=== PATIENT | male | born 1935 | race Caucasian/White ===

== ENCOUNTER → 2018-01-06 | Outpatient (CLI) | payer MEDICARE, BC ==
[2018-01-06 21:12] LABS: PSA Annual Screen 1.19 ng/mL (0.00-4.00)
[2018-01-07 04:04] LABS: Hemoglobin A1C 6.1 % (4.0-6.0)
== END | disposition home or self-care (01) ==
LOC: MMGSC 15:44
PROVIDERS: ATTEND Family Medicine
DX: E78.5 Hyperlipidemia, unspecified (principal); I25.10 Atherosclerotic heart disease of native coronary artery without angina pectoris; E11.9 Type 2 diabetes mellitus without complications; Z12.5 Encounter for screening for malignant neoplasm of prostate
CPT/HCPCS: 80061; 82043; 82570; 83036; 36415; G0103

== ENCOUNTER 2020-06-24 17:21 | Inpatient (IN) | payer MEDICARE, BC ==
[2020-06-24] MEDS ORDERED: SODIUM CHLORIDE 0.9% 1,000 ML IV STA (17:52)
--- NOTE | 2020-06-24 17:57 | ED ---
SOB HPI - General Chief Complaint: Shortness of Breath Stated Complaint: SOB Time Seen by Provider: 06/24/20 17:43 Source: patient, family Mode of arrival: ambulatory Limitations: no limitations - History of Present Illness Initial Comments: This is a 84-year-old male who presents with complaints of shortness of breath and 2 days of abdominal pain. He's had diarrhea along with this. He states his blood sugar fill it was low did eat a [employer]. Workup and this did seem to be the beginning of this difficulty breathing he has orthopnea no fevers chills or sweats. He does have a history of cardiac disease with stents and bypass surgery. He does have a pacer defibrillator. He has his gallbladder and appendix out in the past. He does complain of mid abdominal pain. He also has some nausea and vomiting. MD Complaint: shortness of breath - Related Data Home Medications Medication Instructions Recorded Confirmed Aspirin [Adult Low Dose Aspirin EC] 81 mg PO DAILY@1200,2000 06/24/20 06/24/20 Carvedilol [Coreg] 12.5 mg PO BID 06/24/20 06/24/20 Finasteride [Proscar] 5 mg PO QAM 06/24/20 06/24/20 Lovastatin [Mevacor] 20 mg PO DAILY@1200 06/24/20 06/24/20 Meloxicam [Mobic] 15 mg PO HS 06/24/20 06/24/20 [place]-3 Fatty Acids/Fish Oil [Fish 1 cap PO Q48H 06/24/20 06/24/20 Oil 1,000 mg Softgel] Terazosin HCl [Hytrin] 10 mg PO HS 06/24/20 06/24/20 Ubidecarenone [Co Q-10] 200 mg PO QAM 06/24/20 06/24/20 glyBURIDE [Diabeta] 2.5 mg PO Q48H 06/24/20 06/24/20 hydroCHLOROthiazide [Hydrodiuril] 25 mg PO QAM 06/24/20 06/24/20 Allergies Allergy/AdvReac Type Severity Reaction Status Date / Time Penicillins Allergy Rash/Hives Verified 06/24/20 19:59 Review of Systems ROS Statement: Those systems with pertinent positive or pertinent negative responses have been documented in the HPI. ROS Other: All systems not noted in ROS Statement are negative. Past Medical History Past Medical History: Heart Failure, Diabetes Mellitus, Hyperlipidemia, Hypertension History of Any Multi-Drug Resistant Organisms: None Reported Past Surgical History: Appendectomy, Cholecystectomy Past Psychological History: No Psychological Hx Reported Smoking Status: Former smoker Past Alcohol Use History: None Reported Past Drug Use History: None Reported General Exam - General Exam Comments Initial Comments: This is a well-developed well-nourished awake alert oriented times 3 male Limitations: no limitations General appearance: alert, anxious, in distress Head exam: Present: atraumatic, normocephalic, normal inspection Eye exam: Present: normal appearance, PERRL, EOMI. Absent: scleral icterus, conjunctival injection, periorbital swelling ENT exam: Present: normal exam, mucous membranes moist Neck exam: Present: normal inspection, full ROM, other (No stridor JVD or b ruits). Absent: tenderness, meningismus, lymphadenopathy Respiratory exam: Present: rales (Faint crackles at the bases), decreased breath sounds. Absent: respiratory distress, wheezes, rhonchi, stridor Cardiovascular Exam: Present: regular rate, normal rhythm, normal heart sounds. Absent: systolic murmur, diastolic murmur, rubs, gallop, clicks GI/Abdominal exam: Present: soft, distended, tenderness, normal bowel sounds. Absent: guarding, rebound, rigid Rectal exam: Present: deferred Extremities exam: Present: normal inspection, full ROM, normal capillary refill, pedal edema (Trace edema). Absent: tenderness, joint swelling, calf tenderness Back exam: Present: normal inspection Neurological exam: Present: alert, oriented X3, CN II-XII intact Psychiatric exam: Present: normal affect, normal mood Skin exam: Present: warm, dry, intact, normal color. Absent: rash Course Vital Signs 06/24/20 06/24/20 17:36 19:56 Temperature 98.5 F Pulse Rate 61 72 Respiratory 18 16 Rate Blood Pressure 94/60 121/99 O2 Sat by Pulse 97 97 Oximetry - Reevaluation(s) Reevaluation #1: 06/24/20 20:50 Feeling somewhat improved Medical Decision Making - Medical Decision Making I did discuss [employer] the patient and family members patient does have evidence of acute kidney injury as well as CHF. The hypoglycemia may be likely related to the medic medication. I did discuss the case with . Patient will be admitted - Lab Data Result diagrams: 06/24/20 18:25 06/24/20 18:25 Lab Results 06/24/20 06/24/20 06/24/20 Range/Units 18:25 18:25 18:25 WBC 19.7 H (3.8-10.6) k/uL RBC 4.19 L (4.30-5.90) m/uL Hgb 11.3 L (13.0-17.5) gm/dL Hct 34.7 L (39.0-53.0) % MCV 82.7 (80.0-100.0) fL MCH 26.9 (25.0-35.0) pg MCHC 32.5 (31.0-37.0) g/dL RDW 13.5 (11.5-15.5) % Plt Count 197 (150-450) k/uL Neutrophils % 89 % Lymphocytes % 7 % Monocytes % 4 % Eosinophils % 0 % Basophils % 0 % Neutrophils # 17.4 H (1.3-7.7) k/uL Lymphocytes # 1.3 (1.0-4.8) k/uL Monocytes # 0.7 (0-1.0) k/uL Eosinophils # 0.0 (0-0.7) k/uL Basophils # 0.0 (0-0.2) k/uL PT 12.8 H (9.0-12.0) sec INR 1.3 H (<1.2) APTT 31.8 H (22.0-30.0) sec Sodium 140 (137-145) mmol/L Potassium 4.1 (3.5-5.1) mmol/L Chloride 104 (98-107) mmol/L Carbon Dioxide 27 (22-30) mmol/L Anion Gap 9 mmol/L BUN 40 H (9-20) mg/dL Creatinine 2.65 H (0.66-1.25) mg/dL Est GFR (CKD-EPI)AfAm 24 (>60 ml/min/1.73 sqM) Est GFR (CKD-EPI)NonAf 21 (>60 ml/min/1.73 sqM) Glucose 37 L* (74-99) mg/dL POC Glucose (mg/dL) (75-99) mg/dL POC Glu Seniour Insight Manager ID Plasma Lactic Acid Romaine (0.7-2.0) mmol/L Calcium 8.8 (8.4-10.2) mg/dL Magnesium 2.0 (1.6-2.3) mg/dL Total Bilirubin 1.0 (0.2-1.3) mg/dL AST 23 (17-59) U/L ALT 11 (4-49) U/L Alkaline Phosphatase 47 (38-126) U/L Creatine Kinase 228 H (55-170) U/L Troponin I (0.000-0.034) ng/mL NT-Pro-B Natriuret Pep pg/mL Total Protein 6.1 L (6.3-8.2) g/dL Albumin 3.6 (3.5-5.0) g/dL Lipase 45 (23-300) U/L Urine Color Urine Appearance (Clear) Urine pH (5.0-8.0) Ur Specific [place] (1.001-1.035) Urine Protein (Negative) Urine Glucose (UA) (Negative) Urine Ketones (Negative) Urine Blood (Negative) Urine Nitrite (Negative) Urine Bilirubin (Negative) Urine Urobilinogen (<2.0) mg/dL Ur Leukocyte Esterase (Negative) Urine RBC (0-5) /hpf Urine WBC (0-5) /hpf Urine WBC Clumps (None) /hpf Ur Squamous Epith Cells (0-4) /hpf Hyaline Casts (0-2) /lpf Urine Mucus (None) /hpf 06/24/20 06/24/20 06/24/20 Range/Units 18:25 18:25 18:25 WBC (3.8-10.6) k/uL RBC (4.30-5.90) m/uL Hgb (13.0-17.5) gm/dL Hct (39.0-53.0) % MCV (80.0-100.0) fL MCH (25.0-35.0) pg MCHC (31.0-37.0) g/dL RDW (11.5-15.5) % Plt Count (150-450) k/uL Neutrophils % % Lymphocytes % % Monocytes % % Eosinophils % % Basophils % % Neutrophils # (1.3-7.7) k/uL Lymphocytes # (1.0-4.8) k/uL Monocytes # (0-1.0) k/uL Eosinophils # (0-0.7) k/uL Basophils # (0-0.2) k/uL PT (9.0-12.0) sec INR (<1.2) APTT (22.0-30.0) sec Sodium (137-145) mmol/L Potassium (3.5-5.1) mmol/L Chloride (98-107) mmol/L Carbon Dioxide (22-30) mmol/L Anion Gap mmol/L BUN (9-20) mg/dL Creatinine (0.66-1.25) mg/dL Est GFR (CKD-EPI)AfAm (>60 ml/min/1.73 sqM) Est GFR (CKD-EPI)NonAf (>60 ml/min/1.73 sqM) Glucose (74-99) mg/dL POC Glucose (mg/dL) (75-99) mg/dL POC Glu Seniour Insight Manager ID Plasma Lactic Acid Romaine 1.4 (0.7-2.0) mmol/L Calcium (8.4-10.2) mg/dL Magnesium (1.6-2.3) mg/dL Total Bilirubin (0.2-1.3) mg/dL AST (17-59) U/L ALT (4-49) U/L Alkaline Phosphatase (38-126) U/L Creatine Kinase (55-170) U/L Troponin I 0.012 (0.000-0.034) ng/mL NT-Pro-B Natriuret Pep 3860 pg/mL Total Protein (6.3-8.2) g/dL Albumin (3.5-5.0) g/dL Lipase (23-300) U/L Urine Color Urine Appearance (Clear) Urine pH (5.0-8.0) Ur Specific [place] (1.001-1.035) Urine Protein (Negative) Urine Glucose (UA) (Negative) Urine Ketones (Negative) Urine Blood (Negative) Urine Nitrite (Negative) Urine Bilirubin (Negative) Urine Urobilinogen (<2.0) mg/dL Ur Leukocyte Esterase (Negative) Urine RBC (0-5) /hpf Urine WBC (0-5) /hpf Urine WBC Clumps (None) /hpf Ur Squamous Epith Cells (0-4) /hpf Hyaline Casts (0-2) /lpf Urine Mucus (None) /hpf 10/13/20 10/13/20 Range/Units 19:03 20:12 WBC (3.8-10.6) k/uL RBC (4.30-5.90) m/uL Hgb (13.0-17.5) gm/dL Hct (39.0-53.0) % MCV (80.0-100.0) fL MCH (25.0-35.0) pg MCHC (31.0-37.0) g/dL RDW (11.5-15.5) % Plt Count (150-450) k/uL Neutrophils % % Lymphocytes % % Monocytes % % Eosinophils % % Basophils % % Neutrophils # (1.3-7.7) k/uL Lymphocytes # (1.0-4.8) k/uL Monocytes # (0-1.0) k/uL Eosinophils # (0-0.7) k/uL Basophils # (0-0.2) k/uL PT (9.0-12.0) sec INR (<1.2) APTT (22.0-30.0) sec Sodium (137-145) mmol/L Potassium (3.5-5.1) mmol/L Chloride (98-107) mmol/L Carbon Dioxide (22-30) mmol/L Anion Gap mmol/L BUN (9-20) mg/dL Creatinine (0.66-1.25) mg/dL Est GFR (CKD-EPI)AfAm (>60 ml/min/1.73 sqM) Est GFR (CKD-EPI)NonAf (>60 ml/min/1.73 sqM) Glucose (74-99) mg/dL POC Glucose (mg/dL) 130 H (75-99) mg/dL POC Glu [employer] Insight Manager ID Alek Quevedo Plasma Lactic Acid Romaine (0.7-2.0) mmol/L Calcium (8.4-10.2) mg/dL Magnesium (1.6-2.3) mg/dL Total Bilirubin (0.2-1.3) mg/dL AST (17-59) U/L ALT (4-49) U/L Alkaline Phosphatase (38-126) U/L Creatine Kinase (55-170) U/L Troponin I (0.000-0.034) ng/mL NT-Pro-B Natriuret Pep pg/mL Total Protein (6.3-8.2) g/dL Albumin (3.5-5.0) g/dL Lipase (23-300) U/L Urine Color Dark Yellow Urine Appearance Turbid (Clear) Urine pH 5.0 (5.0-8.0) Ur Specific [place] 1.023 (1.001-1.035) Urine Protein 1+ H (Negative) Urine Glucose (UA) Negative (Negative) Urine Ketones Negative (Negative) Urine Blood Trace H (Negative) Urine Nitrite Negative (Negative) Urine Bilirubin Negative (Negative) Urine Urobilinogen 2.0 (<2.0) mg/dL Ur Leukocyte Esterase Small H (Negative) Urine RBC 5 (0-5) /hpf Urine WBC 34 H (0-5) /hpf Urine WBC Clumps Occasional H (None) /hpf Ur Squamous Epith Cells 15 H (0-4) /hpf Hyaline Casts 131 H (0-2) /lpf Urine Mucus Few H (None) /hpf - EKG Data -: EKG Interpreted by Me EKG Comments: Atrial sensed ventricular paced rhythm of 63. Interval 134 QRS duration 144 QT since QTC 454/464 - Radiology Data Radiology results: report reviewed (I did review the imaging and report no definite acute findings.), image reviewed Critical Care Time Critical Care Time: Yes Total Critical Care Time: 33 Critical Care Time: Total care time included initial presentation with history physical labs x-rays multiple reevaluation the patient discussed with the patient and family and several occasions the findings review of old charting was available discussed with the admitting physician admission orders and documentation of the above Disposition Clinical Impression: Congestive heart failure, Acute kidney injury, Hypoglycemia Disposition: ADMITTED IP TO THIS HOSP Condition: Fair Referrals: Zahida Buck MD [Primary Care Provider] - 1-2 days
[2020-06-24 18:35] LABS: Basophils % (A) 0 %; Eosinophils % (A) 0 %; HCT 34.7 % (39.0-53.0); HGB 11.3 gm/dL (13.0-17.5); Lymphocytes # (A) 1.3 k/uL (1.0-4.8); Lymphocytes % (A) 7 %; MCH 26.9 pg (25.0-35.0); MCHC 32.5 g/dL (31.0-37.0); MCV 82.7 fL (80.0-100.0); Mean Platelet Volume 7.6; Monocytes # (A) 0.7 k/uL (0-1.0); Monocytes % (A) 4 %; Neutrophils # (A) 17.4 k/uL (1.3-7.7); Neutrophils % (A) 89 %; Platelet Count 197 k/uL (150-450); RBC 4.19 m/uL (4.30-5.90); RDW 13.5 % (11.5-15.5); WBC 19.7 k/uL (3.8-10.6)
[2020-06-24 18:44] LABS: INR 1.3 (<1.2); Partial Thromboplastin Time 31.8 sec (22.0-30.0); Prothrombin Time 12.8 sec (9.0-12.0)
[2020-06-24 18:49] LABS: Albumin 3.6 g/dL (3.5-5.0); Calcium 8.8 mg/dL (8.4-10.2); Potassium 4.1 mmol/L (3.5-5.1); Total Protein 6.1 g/dL (6.3-8.2)
--- NOTE | 2020-06-24 19:30 | XR ---
EXAMINATION TYPE: XR KUB DATE OF EXAM: 06/24/2020 COMPARISON: NONE HISTORY: Abdominal pain TECHNIQUE: 2 views FINDINGS: There is no sign of intestinal obstruction or pneumoperitoneum. Fecal pattern is fairly nor mal. There is no evidence of a mass. There are surgical clips over the right mid abdomen. There are n o calcifications over the kidneys. Lung bases are clear of consolidation. There are spondylotic suther[place] es in the thoracic and lumbar spine. IMPRESSION: Nonacute abdomen.
--- NOTE | 2020-06-24 19:31 | XR ---
EXAMINATION TYPE: XR chest 2V DATE OF EXAM: 06/24/2020 COMPARISON: NONE HISTORY: Diarrhea. Weakness TECHNIQUE: FINDINGS: Heart is probably enlarged. There is no heart failure. Lungs are clear of consolidation. Th ere is left axillary pacemaker. There is no pleural effusion. Bony thorax appears intact. IMPRESSION: No active cardiopulmonary disease. Cardiomegaly.
[2020-06-24 19:51] LABS: Appearance,Urine Turbid (Clear); Bilirubin,Urine Negative (Negative); Blood,Urine Trace (Negative); Color,Urine Dark Yellow; Glucose,Urine (UA) Negative (Negative); Hyaline Casts,Urine 131 /lpf (0-2); Ketones,Urine Negative (Negative); Leukocyte Esterase,Urine Small (Negative); Mucus,Urine Few /hpf; Nitrite,Urine Negative (Negative); Protein,Urine 1+ (Negative); RBC,Urine 5 /hpf (0-5); Specific Gravity,Urine 1.023 (1.001-1.035); Squamous Epithelial Cell,Urine 15 /hpf (0-4); WBC,Urine 34 /hpf (0-5)
[2020-06-24] MEDS: DEXTROSE 50% SYRINGE 50 ML IVP STA (19:56)
[2020-06-24] MEDS ORDERED: FUROSEMIDE 10 MG/ML 4 ML VIAL IV STA (20:00)
[2020-06-24 20:13] LABS: Glucose,Whole Blood 130 mg/dL (75-99)
[2020-06-24] MEDS ORDERED: FUROSEMIDE 40 MG TAB PO SCH (21:00)
[2020-06-24] MEDS ORDERED: MELOXICAM 7.5 MG TAB PO SCH (21:00)
[2020-06-24] MEDS ORDERED: NON FORMULARY DRUG (Omega-3 Fatty Acids/Fish Oil [Fish Oil 1,000 Mg Softgel] 1 EACH Capsul PO SCH (21:00)
[2020-06-24 21:25] LABS: Glucose,Whole Blood 91 mg/dL (75-99)
[2020-06-24] MEDS: carvediloL 12.5 MG TAB PO SCH (21:59)
[2020-06-24] MEDS: DOXAZOSIN 4 MG TAB PO SCH (21:59)
[2020-06-24] MEDS: INSULIN ASPART (NovoLOG) 100 UNIT/ML VIAL SQ SCH (21:59)
[2020-06-24] MEDS: FINASTERIDE 5 MG TAB PO SCH (22:00)
[2020-06-24 22:13] LABS: Glucose,Whole Blood 73 mg/dL (75-99)
[2020-06-24] MEDS ORDERED: DEXTROSE 50% SYRINGE 50 ML IVP STA (22:30)
[2020-06-24] MEDS ORDERED: DEXTROSE 5%-0.9% NACL 1,000 ML IV SCH (22:30)
--- NOTE | 2020-06-24 22:52 | P.HPIM ---
History of Present Illness H&P Date: 06/24/20 the patient is an 84-year-old male with a PMH of type II DM, coronary artery disease status post multiple stents, systolic CHF status post AICD, hypertension, and hyperlipidemia who presented to the ED with complaints of shortness of breath and abdominal pain. The patient reports that his symptoms started on Tuesday morning when hetook his regular shower in his basement and as he tried to walk up the stairs, he noticed that he got extremely winded and was unable to make it all the way up and had to stop. he notes that since then, he has felt that he is unable to perform his ADLs due to the shortness of breath. He also reported diarrhea that normally occurs once weekly, happening since , with 5-6 watery bowel movements daily. reports diffuse abdominal pain with episodes of diarrhea, 3 out of 10, with no clear alleviating or exacerbating features. As a result he reports eating very little food. reports that his legs have been swollen for the past few days and that he is having difficulties laying down flat due to shortness of breath. The patient contacted his son who is his power of finance attorney and an RN who advised him to come to the emergency room. In the ED, chest x-ray revealed cardiomegaly with EKG showing an AV paced rhythm at 63 bpm. KUB x-ray was unremarkable. laboratory evaluation revealed a glucose of 37, WBC count 19.7, hemoglobin 11.3, sodium 140, potassium 4.1, chloride 44, BUN 40, creatinine 2.65, proBNP 3860, and troponin 0.012 with CK 228. Review of Systems Pertinent positives and negatives as discussed in HPI, a complete review of systems was performed and all other systems are negative. Past Medical History Past Medical History: Heart Failure, Diabetes Mellitus, Hyperlipidemia, Hypertension History of Any Multi-Drug Resistant Organisms: None Reported Past Surgical History: Appendectomy, Cholecystectomy Past Psychological History: No Psychological Hx Reported Smoking Status: Former smoker Past Alcohol Use History: None Reported Past Drug Use History: None Reported Medications and Allergies Home Medications Medication Instructions Recorded Confirmed Type Aspirin [Adult Low Dose Aspirin EC] 81 mg PO DAILY@1200,2000 06/24/20 06/24/20 History Carvedilol [Coreg] 12.5 mg PO BID 06/24/20 06/24/20 History Finasteride [Proscar] 5 mg PO QAM 06/24/20 06/24/20 History Lovastatin [Mevacor] 20 mg PO DAILY@1200 06/24/20 06/24/20 History Meloxicam [Mobic] 15 mg PO HS 06/24/20 06/24/20 History [place]-3 Fatty Acids/Fish Oil [Fish 1 cap PO Q48H 06/24/20 06/24/20 History Oil 1,000 mg Softgel] Terazosin HCl [Hytrin] 10 mg PO HS 06/24/20 06/24/20 History Ubidecarenone [Co Q-10] 200 mg PO QAM 06/24/20 06/24/20 History glyBURIDE [Diabeta] 2.5 mg PO Q48H 06/24/20 06/24/20 History hydroCHLOROthiazide [Hydrodiuril] 25 mg PO QAM 06/24/20 06/24/20 History Allergies Allergy/AdvReac Type Severity Reaction Status Date / Time Penicillins Allergy Rash/Hives Verified 06/24/20 19:59 Physical Exam Vitals: Vital Signs Temp Pulse Resp BP Pulse Ox 06/24/20 21:57 65 16 118/55 96 06/24/20 19:56 72 16 121/99 97 06/24/20 17:36 98.5 F 61 18 94/60 97 Intake and Output 06/24/20 06/24/20 06/24/20 06:59 14:59 22:59 Other: Weight 104.78 kg General: non toxic, no distress, appears at stated age, obese Derm: no unusual rashes/lesions no unusual ecchymoses, warm, dry Head: atraumatic, normocephalic, symmetric Eyes: EOMI, no lid lag, anicteric sclera, pupils equal round reactive to light ENT: Nose and ears atraumatic, no thrush, no pharyngeal erythema Neck: No thyromegaly, no cervical lymphadenopathy, trachea midline, supple Mouth: no lip lesion, mucus membranes moist Cardiovascular: S1S2 reg, no murmur, positive posterior tibial pulse bilateral, trace bilateral lower extremity pitting edema, capillary refill less than 2 seconds Lungs: CTA bilateral, no rhonchi, no rales , no accessory muscle use Abdominal: soft, mild diffuse tenderness to palpation, no guarding, no appreciable organomegaly, normal bowel sounds Ext: no gross muscle atrophy, muscle strength 4 out of 5 in all 4 extremities grossly, no contractures, Neuro: CN II-XI grossly intact, light touch intact all 4 extremities, finger to nose within normal limits, Psych: Alert, oriented, appropriate affect Results CBC & Chem 7: 06/24/20 18:25 06/24/20 18:25 Labs: Abnormal Lab Results - Last 24 Hours (Table) 06/24/20 06/24/20 06/24/20 Range/Units 18:25 18:25 18:25 WBC 19.7 H (3.8-10.6) k/uL RBC 4.19 L (4.30-5.90) m/uL Hgb 11.3 L (13.0-17.5) gm/dL Hct 34.7 L (39.0-53.0) % Neutrophils # 17.4 H (1.3-7.7) k/uL PT 12.8 H (9.0-12.0) sec INR 1.3 H (<1.2) APTT 31.8 H (22.0-30.0) sec BUN 40 H (9-20) mg/dL Creatinine 2.65 H (0.66-1.25) mg/dL Glucose 37 L* (74-99) mg/dL POC Glucose (mg/dL) (75-99) mg/dL Creatine Kinase 228 H (55-170) U/L Total Protein 6.1 L (6.3-8.2) g/dL Urine Protein (Negative) Urine Blood (Negative) Ur Leukocyte Esterase (Negative) Urine WBC (0-5) /hpf Urine WBC Clumps (None) /hpf Ur Squamous Epith Cells (0-4) /hpf Hyaline Casts (0-2) /lpf Urine Mucus (None) /hpf 06/24/20 06/24/20 06/24/20 Range/Units 19:03 20:12 22:12 WBC (3.8-10.6) k/uL RBC (4.30-5.90) m/uL Hgb (13.0-17.5) gm/dL Hct (39.0-53.0) % Neutrophils # (1.3-7.7) k/uL PT (9.0-12.0) sec INR (<1.2) APTT (22.0-30.0) sec BUN (9-20) mg/dL Creatinine (0.66-1.25) mg/dL Glucose (74-99) mg/dL POC Glucose (mg/dL) 130 H 73 L (75-99) mg/dL Creatine Kinase (55-170) U/L Total Protein (6.3-8.2) g/dL Urine Protein 1+ H (Negative) Urine Blood Trace H (Negative) Ur Leukocyte Esterase Small H (Negative) Urine WBC 34 H (0-5) /hpf Urine WBC Clumps Occasional H (None) /hpf Ur Squamous Epith Cells 15 H (0-4) /hpf Hyaline Casts 131 H (0-2) /lpf Urine Mucus Few H (None) /hpf Assessment and Plan Plan: Shortness of breath, suspected secondary to systolic CHF exacerbation -Cardiac monitoring -Echocardiogram -Intake and output -Daily weights -Cardiology consult -Hold off on further Lasix at this time as patient reports that his lower extremity edema has improved significantly since presentation and in light of the patient's acute kidney injury Hypoglycemia in setting of sulfonylurea use with poor oral intake -Hold off on oral hypoglycemics -Advised the patient that his sulfonylurea will need to be discontinued prior to his discharge to home Diarrhea -Patient reports that always improves with Pepto-Bismol -Obtain fecal leukocytes and calprotectin levels -Imodium prn for now Acute kidney injury -Likely secondary to poor oral intake -Monitor for now DVT prophylaxis -Heparin subq The patient is admitted with an anticipated more than 2 midnight stay for evaluation of systolic CHF exacerbation CODE STATUS: No Code Discussed with: Patient Anticipated discharge date: 2-[address]: Home A total of 40 minutes was spent on the care of this complex patient more than 50% of the time was spent in counseling and care coordination.
[2020-06-24 23:01] LABS: Glucose,Whole Blood 97 mg/dL (75-99)
[2020-06-24] MEDS: HEPARIN SODIUM,PORCINE 5,000 UNIT/ML 1 ML VIAL SQ SCH (23:52)
[2020-06-25 00:21] LABS: Glucose,Whole Blood 79 mg/dL (75-99)
[2020-06-25 01:48] LABS: Glucose,Whole Blood 49 mg/dL (75-99)
[2020-06-25] MEDS ORDERED: DEXTROSE 50% SYRINGE 50 ML IVP ONE ×3 (02:00→09:50)
[2020-06-25 02:04] LABS: Glucose,Whole Blood 150 mg/dL (75-99)
[2020-06-25 03:04] LABS: Glucose,Whole Blood 66 mg/dL (75-99)
[2020-06-25 03:19] LABS: Glucose,Whole Blood 59 mg/dL (75-99)
[2020-06-25] MEDS ORDERED: DEXTROSE 50% SYRINGE 50 ML IVP STA ×4 (03:22→10:33)
[2020-06-25 03:36] LABS: Glucose,Whole Blood 136 mg/dL (75-99)
[2020-06-25 04:14] LABS: Glucose,Whole Blood 72 mg/dL (75-99)
[2020-06-25] MEDS ORDERED: DEXTROSE 5%-0.9% NACL 1,000 ML IV SCH (04:15)
[2020-06-25] MEDS: DEXTROSE 10% IN WATER 500 ML in EMPTY BAG 1 BAG IV SCH ×4 (04:21→15:57)
[2020-06-25 05:07] LABS: Glucose,Whole Blood 73 mg/dL (75-99)
[2020-06-25] MEDS: INSULIN ASPART (NovoLOG) 100 UNIT/ML VIAL SQ SCH ×2 (06:07→11:30)
[2020-06-25 06:11] LABS: Glucose,Whole Blood 65 mg/dL (75-99)
[2020-06-25 06:15] LABS: Glucose,Whole Blood 51 mg/dL (75-99)
[2020-06-25] MEDS: carvediloL 12.5 MG TAB PO SCH ×2 (06:23→17:17)
[2020-06-25 06:31] LABS: Glucose,Whole Blood 126 mg/dL (75-99)
[2020-06-25 07:03] LABS: Glucose,Whole Blood 53 mg/dL (75-99)
[2020-06-25 07:30] LABS: Glucose,Whole Blood 147 mg/dL (75-99)
[2020-06-25 08:15] LABS: Glucose,Whole Blood 53 mg/dL (75-99)
[2020-06-25 08:34] LABS: Glucose,Whole Blood 51 mg/dL (75-99)
[2020-06-25] MEDS: DEXTROSE 50% SYRINGE 50 ML IVP STA (08:35)
[2020-06-25] MEDS: HEPARIN SODIUM,PORCINE 5,000 UNIT/ML 1 ML VIAL SQ SCH ×2 (08:38→16:01)
[2020-06-25] MEDS: LOPERAMIDE 2 MG CAP PO PRN (08:39)
[2020-06-25 08:52] LABS: Glucose,Whole Blood 112 mg/dL (75-99)
[2020-06-25] MEDS ORDERED: FUROSEMIDE 10 MG/ML 4 ML VIAL IV STA (08:54)
[2020-06-25] MEDS ORDERED: hydroCHLOROthiazide 25 MG TAB PO SCH (09:00)
[2020-06-25] MEDS ORDERED: NON FORMULARY DRUG (Ubidecarenone [Co Q-10] 100 MG Capsule) PO SCH (09:00)
[2020-06-25] MEDS: ASPIRIN 81 MG PO SCH (09:03)
[2020-06-25 09:10] LABS: Glucose,Whole Blood 85 mg/dL (75-99)
[2020-06-25 09:12] LABS: HCT 33.4 % (39.0-53.0); HGB 10.7 gm/dL (13.0-17.5); Hypochromasia Marked; MCH 27.4 pg (25.0-35.0); MCHC 31.9 g/dL (31.0-37.0); MCV 85.8 fL (80.0-100.0); Mean Platelet Volume 8.3; Platelet Count 170 k/uL (150-450); RDW 13.6 % (11.5-15.5); WBC 14.3 k/uL (3.8-10.6)
[2020-06-25 09:27] LABS: Glucose,Whole Blood 60 mg/dL (75-99)
[2020-06-25 09:45] LABS: Glucose,Whole Blood 53 mg/dL (75-99)
[2020-06-25 10:01] LABS: Glucose,Whole Blood 161 mg/dL (75-99)
[2020-06-25 10:16] LABS: Glucose,Whole Blood 107 mg/dL (75-99)
[2020-06-25 10:34] LABS: Glucose,Whole Blood 50 mg/dL (75-99)
[2020-06-25] MEDS: OCTREOTIDE 100 MCG/ML INJ SQ SCH ×2 (10:38→17:41)
[2020-06-25 10:47] LABS: Glucose,Whole Blood 191 mg/dL (75-99)
[2020-06-25 11:04] LABS: Glucose,Whole Blood 129 mg/dL (75-99)
--- NOTE | 2020-06-25 11:04 | XR ---
EXAMINATION TYPE: XR chest 1V portable DATE OF EXAM: 06/25/2020 CLINICAL HISTORY: Fluid overload. Shortness of breath. TECHNIQUE: Portable upright view of the chest obtained. COMPARISON: 06/24/2020 chest radiograph FINDINGS: Low lung volumes. Cardiomegaly. Left-sided AICD. Sternotomy wires. Pulmonary vasculature i s normal. There is no focal air space opacity, pleural effusion, or pneumothorax seen. The osseous st ructures are intact. IMPRESSION: Cardiomegaly. No acute cardiopulmonary process.
--- NOTE | 2020-06-25 11:12 | ECHOF ---
Referral Reason:CHF MEASUREMENTS -------- HEIGHT: 172.7 cm WEIGHT: 103.0 kg BP: IVSd: 1.5 cm (0.6 - 1.1) LVIDd: 3.6 cm (3.9 - 5.3) LVPWd: 1.3 cm (0.6 - 1.1) IVSs: 1.4 cm LVIDs: 3.3 cm LVPWs: 1.3 cm Ao Diam: 3.0 cm (2.0 - 3.7) AV Cusp: 1.4 cm (1.5 - 2.6) LA Diam: 3.4 cm (2.7 - 3.8) MV EXCURSION: 10.759 mm (> 18.000) MV EF SLOPE: 41 mm/s (70 - 150) EPSS: 1.0 cm MV E Maynor: 1.32 m/s MV DecT: 258 ms MV A [place]: 0.47 m/s MV E/A Ratio: 2.80 AV maxP.11 mmHg AV meanP.75 mmHg RAP: 5.00 mmHg RVSP: 12.89 mmHg FINDINGS -------- Pacerwire seen in RV and RA. This was a technically difficult study with suboptimal views. The left ventricular size is normal. There is moderate concentric left ventricular hypertrophy. O verall left ventricular systolic function is moderately impaired with, an EF between 35 - 40 %. Bas al inferior LV wall motion is hypokinetic. Mid inferior LV wall motion is hypokinetic. The RV was not well visualized. The left atrial size is normal. The right atrial size is normal. Lumason used There is mild aortic valve sclerosis. Trace amount of aortic regurgitation. There is mild aortic stenosis present. Peak/mean gradient across the Aortic Valve is 25.11mmHg / 16.75mmHg. The mitral valve leaflets are mildly thickened. Mild mitral regurgitation is present. The tricuspid valve appears structurally normal. Trace tricuspid regurgitation present. Right bri tricular systolic pressure is normal at < 35 mmHg. There is no pulmonic regurgitation present. The aortic root size is normal. IVC Not well visulized. There is no pericardial effusion. CONCLUSIONS -------- 1. There is moderate concentric left ventricular hypertrophy. 2. Overall left ventricular systolic function is moderately impaired with, an EF between 35 - 40 %. 3. Basal inferior LV wall motion is hypokinetic. 4. Mid inferior LV wall motion is hypokinetic. 5. The left atrial size is normal. 6. Trace amount of aortic regurgitation. 7. There is mild aortic stenosis present. 8. Peak/mean gradient across the Aortic Valve is 25.11mmHg / 16.75mmHg. 9. The mitral valve leaflets are mildly thickened. 10. Mild mitral regurgitation is present. 11. Trace tricuspid regurgitation present. 12. There is no pericardial effusion. WHEEL AND PINION INSPECTOR: Brenda Calix RDCS
[2020-06-25 11:21] LABS: Glucose,Whole Blood 99 mg/dL (75-99)
[2020-06-25 11:37] LABS: Glucose,Whole Blood 89 mg/dL (75-99)
--- NOTE | 2020-06-25 11:52 | P.CRDCN ---
History of Present Illness History of present illness: HISTORY OF PRESENTING ILLNESS This is a pleasant 84-year-old male past medical history significant for coronary artery disease status post four-vessel bypass grafting in 2009, prior to bypass grafting he had 9 stents placed, ischemic cardiomyopathy status post AICD 2013, hypertension, dyslipidemia, diabetes mellitus and chronic systolic heart failure. He follows in the office with Dr. Alyssia solis sitting he also sees a marine specialist in [place] where he lives half the year. We have been asked to see in consultation for congestive heart failure. He states for the previous 3-4 days he has been experiencing exertional shortness of breath, orthopnea, abdominal bloating, diarrhea and generalized weakness and fatigue. His symptoms have been getting progressively worse. He states he has unable to tolerate oral intake that everything just goes right through him. His breathing is labored at this time he cannot complete a sentence without stopping for air. Initial x-ray on admission was negative for pleural effusion with no consolidation or active cardiopulmonary disease. On arrival his blood glucose was 37. Her sugar has been difficult to maintain requiring frequent amps of D50. He denies chest pain but continues to feel. Sensation in his abdomen that he feels is pushing up on his chest. DIAGNOSTICS EKG reveals AV paced. Chest xray negative for an acute cardiopulmonary process. Laboratory reviewed, WBC on admission 19.7 repeat today 14.3, hemoglobin 10.7, platelets 170, INR 1.3, sodium 140, potassium 4.1, creatinine 2.65, magnesium 2.0, cardiac enzymes negative 1, NT proBNP 3860. Current cardiac medications include aspirin 81 mg twice a day, carvedilol 12.5 mg twice a day, lovastatin 20 mg daily, terazosin 10 mg at bedtime and hydrochlorothiazide 25 mg daily. REVIEW OF SYSTEMS At the time of my exam: CONSTITUTIONAL: Complains of generalized weakness. Denies fever or chills. CARDIOVASCULAR: Complains of shortness of breath and orthopnea. Denies chest pain, PND or palpitations. RESPIRATORY: Denies cough. GASTROINTESTINAL: Complains of abdominal bloating, nausea and diarrhea Denies diarrhea, constipation or vomiting. MUSCULOSKELETAL: Denies myalgias. NEUROLOGIC: Denies numbness, tingling or weakness. ENDOCRINE: Denies fatigue, weight change, polydipsia or polyurina. GENITOURINARY: Denies burning, hematuria or urgency with micturation. HEMATOLOGIC: Denies history of anemia or bleeding. PHYSICAL EXAMINATION Blood pressure 106/45 heart rate 64, tachypneic afebrile and maintaining oxygen saturation on nasal cannula. CONSTITUTIONAL: Mild respiratory distress with conversation. HEENT: Head is normocephalic. Pupils are equal, round. Sclerae anicteric. Mucous membranes of the mouth are moist. Positive JVD noted bilaterally. No carotid bruit. CHEST EXAMINATION: Diminished bilaterally with faint bibasilar crackles, no wheezes or rhonchi. No chest wall tenderness is noted on palpation or with deep breathing. HEART EXAMINATION: Regular rate and rhythm. S1, S2 heard. Systolic ejection murmur at the left sternal border, no gallops or rub. ABDOMEN: Soft, nontender. Positive bowel sounds. EXTREMITIES: 2+ peripheral pulses, 1+ bilateral lower extremity pitting edema and no calf tenderness. NEUROLOGIC EXAMINATION: Patient is awake, alert and oriented x3. ASSESSMENT Acute on chronic systolic heart failure Hypoglycemia Acute kidney injury Leukocytosis Ischemic cardiomyopathy status post AICD Hypertension Dyslipidemia Diabetes mellitus PLAN Give 1 dose of IV Lasix. Recommend cautious fluid administration, discussed with the primary care team our concerns for the patient being in active heart failure receiving IV fluids at 100 mL/h. Decrease aspirin to 81 mg daily. Recommend nephrology consultation. Documented accurate intake and output along with daily weights. Follow renal function and electrolytes in the morning. Obtain 2-D echocardiogram and Doppler study to assess cardiac structure and function. Further recommendations to follow based upon clinical course. Thank you kindly for this consultation Nurse Practitioner note has been reviewed, I agree with a documented findings and plan of care. Patient was seen and examined. Past Medical History Past Medical History: Heart Failure, Diabetes Mellitus, Hyperlipidemia, Hypertension Additional Past Medical History / Comment(s): CABG, EF 20-25 present in past, 13 heart caths, 9 stents. pacer/defib 2013. History of Any Multi-Drug Resistant Organisms: None Reported Past Surgical History: Appendectomy, Cholecystectomy Past Anesthesia/Blood Transfusion Reactions: No Reported Reaction Past Psychological History: No Psychological Hx Reported Smoking Status: Former smoker Past Alcohol Use History: None Reported Past Drug Use History: None Reported Medications and Allergies Home Medications Medication Instructions Recorded Confirmed Type Aspirin [Adult Low Dose Aspirin EC] 81 mg PO DAILY@1200,2000 06/24/20 06/24/20 History Carvedilol [Coreg] 12.5 mg PO BID 06/24/20 06/24/20 History Finasteride [Proscar] 5 mg PO QAM 06/24/20 06/24/20 History Lovastatin [Mevacor] 20 mg PO DAILY@1200 06/24/20 06/24/20 History Meloxicam [Mobic] 15 mg PO HS 06/24/20 06/24/20 History [place]-3 Fatty Acids/Fish Oil [Fish 1 cap PO Q48H 06/24/20 06/24/20 History Oil 1,000 mg Softgel] Terazosin HCl [Hytrin] 10 mg PO HS 06/24/20 06/24/20 History Ubidecarenone [Co Q-10] 200 mg PO QAM 06/24/20 06/24/20 History glyBURIDE [Diabeta] 2.5 mg PO Q48H 06/24/20 06/24/20 History hydroCHLOROthiazide [Hydrodiuril] 25 mg PO QAM 06/24/20 06/24/20 History Allergies Allergy/AdvReac Type Severity Reaction Status Date / Time Penicillins Allergy Rash/Hives Verified 06/24/20 19:59 Physical Exam Vitals: Vital Signs Temp Pulse Pulse Resp BP BP Pulse Ox 06/25/20 11:10 98.5 F 64 30 H 106/45 97 06/25/20 09:33 58 L 28 H 06/25/20 08:15 57 L 28 H 06/25/20 08:00 97.5 F L 57 L 28 H 109/54 97 06/25/20 04:00 98.0 F 61 17 115/58 99 06/24/20 23:07 98.4 F 68 18 137/83 98 06/24/20 22:36 98.1 F 61 16 117/56 96 06/24/20 21:57 65 16 118/55 96 06/24/20 19:56 72 16 121/99 97 06/24/20 17:36 98.5 F 61 18 94/60 97 Intake and Output 06/24/20 06/25/20 06/25/20 22:59 06:59 14:59 Other: # Bowel Movements 1 Weight 104.78 kg 103 kg Results 06/25/20 08:59 06/24/20 18:25 Cardiac Enzymes 06/24/20 06/24/20 Range/Units 18:25 18:25 AST 23 (17-59) U/L Troponin I 0.012 (0.000-0.034) ng/mL Coagulation 06/24/20 Range/Units 18:25 PT 12.8 H (9.0-12.0) sec APTT 31.8 H (22.0-30.0) sec CBC 06/24/20 06/25/20 Range/Units 18:25 08:59 WBC 19.7 H 14.3 H (3.8-10.6) k/uL RBC 4.19 L 3.90 L (4.30-5.90) m/uL Hgb 11.3 L 10.7 L (13.0-17.5) gm/dL Hct 34.7 L 33.4 L (39.0-53.0) % Plt Count 197 170 (150-450) k/uL Comprehensive Metabolic Panel 06/24/20 Range/Units 18:25 Sodium 140 (137-145) mmol/L Potassium 4.1 (3.5-5.1) mmol/L Chloride 104 (98-107) mmol/L Carbon Dioxide 27 (22-30) mmol/L BUN 40 H (9-20) mg/dL Creatinine 2.65 H (0.66-1.25) mg/dL Glucose 37 L* (74-99) mg/dL Calcium 8.8 (8.4-10.2) mg/dL AST 23 (17-59) U/L ALT 11 (4-49) U/L Alkaline Phosphatase 47 (38-126) U/L Total Protein 6.1 L (6.3-8.2) g/dL Albumin 3.6 (3.5-5.0) g/dL Current Medications Generic Name Dose Route Start Last Admin Trade Name Freq PRN Reason Stop Dose Admin Aspirin 81 mg 06/25/20 09:00 06/25/20 09:03 Aspirin 81 Mg PO 81 mg DAILY [facility] Administration Atorvastatin Calcium 10 mg 06/25/20 12:00 Atorvastatin 10 Mg Tab PO DAILY@1200 [facility] Carvedilol 12.5 mg 06/24/20 21:00 06/25/20 06:23 Carvedilol 12.5 Mg Tab PO 12.5 mg BID-W/MEALS [facility] Administration Doxazosin Mesylate 8 mg 06/24/20 21:00 06/24/20 21:59 Doxazosin 4 Mg Tab PO 8 mg HS [facility] Administration Finasteride 5 mg 06/25/20 09:00 06/24/20 22:00 Finasteride 5 Mg Tab PO 5 mg QAM [facility] Administration Heparin Sodium (Porcine) 5,000 unit 06/25/20 00:00 06/25/20 08:38 Heparin Sodium,Porcine 5,000 Unit/Ml 1 Ml Vial SQ 5,000 unit Q8HR [facility] Administration Dextrose/Water 500 ml/ IV 500 mls @ 100 mls/hr 06/25/20 08:30 06/25/20 08:15 Solution IV 75 mls/hr .Q5H [facility] Administration Insulin Aspart 0 unit 06/24/20 21:00 06/25/20 11:30 Insulin Aspart (Novolog) 100 Unit/Ml Vial SQ Not Given ACHS [facility] Protocol Loperamide HCl 2 mg 06/25/20 04:35 06/25/20 08:39 Loperamide 2 Mg Cap PO 2 mg QID PRN Administration Diarrhea Octreotide Acetate 50 mcg 06/25/20 11:00 06/25/20 10:38 Octreotide 100 Mcg/Ml Inj SQ 50 mcg Q6HR [facility] Administration Intake and Output 06/24/20 06/25/20 06/25/20 22:59 06:59 14:59 Other: # Bowel Movements 1 Weight 104.78 kg 103 kg 06/25/20 08:59 06/24/20 18:25
[2020-06-25] MEDS ORDERED: ASPIRIN 325 MG TAB PO SCH (12:00)
[2020-06-25 12:01] LABS: Glucose,Whole Blood 92 mg/dL (75-99)
[2020-06-25] MEDS: ATORVASTATIN 10 MG TAB PO SCH (12:28)
[2020-06-25 12:32] LABS: Glucose,Whole Blood 125 mg/dL (75-99)
[2020-06-25 13:08] LABS: Potassium 4.6 mmol/L (3.5-5.1)
[2020-06-25 13:21] LABS: Glucose,Whole Blood 146 mg/dL (75-99)
--- NOTE | 2020-06-25 13:21 | P.CNPUL ---
History of Present Illness Consult date: 06/25/20 Requesting physician: Dominga Alamo Reason for consult: other (Hypoglycemia needs to be placed on D10W in the ICU) Chief complaint: Shortness of breath and abdominal pain. History of present illness: This is an 84-year-old white male with history of multiple medical problems including type 2 diabetes, coronary artery disease and previous CABG as well as multiple stents placed. History of chronic systolic congestive heart failure, and previous AICD placement. Patient presented to the ER on 06/24/20, mostly complaining of 2 days history of shortness of breath, some vague abdominal discomfort. Patient noticed this on Tuesday as he was coming out of his basement shower, and he was trying to walk upstairs. He became extremely short of breath, and he was also complaining of inability to perform his ADLs. Patient has also been complaining of diarrhea on a regular basis 5-6 watery bowel mo vements on a daily basis intermittently. Workup in the ER revealed low blood sugar of 37. Renal profile was abnormal with a BUN of 40 and creatinine of 2.65, patient was also noted to have elevated pro BNP level. Chest x-ray showed cardiomegaly, no evidence of pulmonary edema or pneumonia. Since admission, patient has been noted to have recurrent hypoglycemic episodes, and required multiple amps of D50. This morning patient had to be placed on D10W drip, and I was notified by the admitting physician about this patient and I recommended transferring the patient to the ICU. Patient has been taking his glipizide 2.5 mg daily prior to admission in spite of his worsening renal function, and in spite of his worsening GI symptoms/diarrhea. At any rate considering the patient is being transferred to the ICU, I was asked to see the patient on consultation. Patient will be seen by cardiology and nephrology on consultation. In the meantime echocardiogram is pending, Review of Systems CONSTITUTIONAL: No weight loss, has no fever no chills, he does have generalized weakness. CARDIOVASCULAR: Complains of shortness of breath and orthopnea. Denies chest pain, PND or palpitations. RESPIRATORY: Denies cough. Denies wheezing. GASTROINTESTINAL: Abdominal bloating and diarrhea. MUSCULOSKELETAL: Denies aches or pains. No arthralgia or myalgia. NEUROLOGIC: No headaches no blurred vision dizziness. ENDOCRINE: No polyuria, no polydipsia, and no heat or cold intolerance. GENITOURINARY: No dysuria frequency urgency or hematuria. HEMATOLOGIC:no Clotting bleeding or bruising. Skin: No rashes Past Medical History Past Medical History: Heart Failure, Diabetes Mellitus, Hyperlipidemia, Hypertension Additional Past Medical History / Comment(s): CABG, EF 20-25 present in past, 13 heart caths, 9 stents. pacer/defib 2013. History of Any Multi-Drug Resistant Organisms: None Reported Past Surgical History: Appendectomy, Cholecystectomy Past Anesthesia/Blood Transfusion Reactions: No Reported Reaction Past Psychological History: No Psychological Hx Reported Smoking Status: Former smoker Past Alcohol Use History: None Reported Past Drug Use History: None Reported Medications and Allergies Home Medications Medication Instructions Recorded Confirmed Type Aspirin [Adult Low Dose Aspirin EC] 81 mg PO DAILY@1200,2000 06/24/20 06/24/20 History Carvedilol [Coreg] 12.5 mg PO BID 06/24/20 06/24/20 History Finasteride [Proscar] 5 mg PO QAM 06/24/20 06/24/20 History Lovastatin [Mevacor] 20 mg PO DAILY@1200 06/24/20 06/24/20 History Meloxicam [Mobic] 15 mg PO HS 06/24/20 06/24/20 History [place]-3 Fatty Acids/Fish Oil [Fish 1 cap PO Q48H 06/24/20 06/24/20 History Oil 1,000 mg Softgel] Terazosin HCl [Hytrin] 10 mg PO HS 06/24/20 06/24/20 History Ubidecarenone [Co Q-10] 200 mg PO QAM 06/24/20 06/24/20 History glyBURIDE [Diabeta] 2.5 mg PO Q48H 06/24/20 06/24/20 History hydroCHLOROthiazide [Hydrodiuril] 25 mg PO QAM 06/24/20 06/24/20 History Allergies Allergy/AdvReac Type Severity Reaction Status Date / Time Penicillins Allergy Rash/Hives Verified 06/24/20 19:59 Physical Exam Vitals: Vital Signs Temp Pulse Pulse Resp BP BP Pulse Ox 06/25/20 11:15 64 30 H 06/25/20 11:10 98.5 F 64 30 H 106/45 97 06/25/20 09:33 58 L 28 H 06/25/20 08:15 57 L 28 H 06/25/20 08:00 97.5 F L 57 L 28 H 109/54 97 06/25/20 04:00 98.0 F 61 17 115/58 99 06/24/20 23:07 98.4 F 68 18 137/83 98 06/24/20 22:36 98.1 F 61 16 117/56 96 06/24/20 21:57 65 16 118/55 96 06/24/20 19:56 72 16 121/99 97 06/24/20 17:36 98.5 F 61 18 94/60 97 Intake and Output 06/24/20 06/25/20 06/25/20 22:59 06:59 14:59 Intake Total 50 Balance 50 Intake: IV 50 Invasive Line 1 20 Invasive Line 2 30 Other: # Bowel Movements 1 Weight 104.78 kg 103 kg Physical Exam: Revealed a 84-year-old white male obese On 3 L nasal cannula with O2 saturation of 97%. Patient is laying flat, slightly tachypneic. Head: Atraumatic, normocephalic. HEENT:[Neck is supple.] [No neck masses.] [No thyromegaly.] [No JVD.] PERRLA, EOMI, no icterus. Moist mucous membranes noted. Chest: [Diminished breath sounds at the bases, minimal crackles at the bases, no rhonchi and no wheezes. Cardiac Exam: Normal S1 and S2, 2/6 systolic murmur thought the precordium especially at the left lower sternal border. Abdomen: [Obese, Soft, slightly tender on palpation, no rebound, no guarding. No megaly. Positive bowel sounds. Extremities: [No clubbing, 1+ bipedal edema, no cyanosis.] Neurological Exam: [No focal neurologic deficit.] Alert and oriented 3. Psychiatric: Normal mood, affect and normal mental status. Skin: No rashes. Results - Laboratory Findings CBC and BMP: 06/25/20 08:59 06/24/20 18:25 PT/INR, D-dimer PT 12.8 sec (9.0-12.0) H 06/24/20 18:25 INR 1.3 (<1.2) H 06/24/20 18:25 Abnormal lab findings: Abnormal Labs 10/06/24/20 06/24/20 18:25 18:25 18:25 WBC 19.7 H RBC 4.19 L Hgb 11.3 L Hct 34.7 L Neutrophils # 17.4 H PT 12.8 H INR 1.3 H APTT 31.8 H BUN 40 H Creatinine 2.65 H Glucose 37 L* POC Glucose (mg/dL) Creatine Kinase 228 H Total Protein 6.1 L Urine Protein Urine Blood Ur Leukocyte Esterase Urine WBC Urine WBC Clumps Ur Squamous Epith Cells Hyaline Casts Urine Mucus 06/24/20 06/24/20 06/24/20 19:03 20:12 22:12 WBC RBC Hgb Hct Neutrophils # PT INR APTT BUN Creatinine Glucose POC Glucose (mg/dL) 130 H 73 L Creatine Kinase Total Protein Urine Protein 1+ H Urine Blood Trace H Ur Leukocyte Esterase Small H Urine WBC 34 H Urine WBC Clumps Occasional H Ur Squamous Epith Cells 15 H Hyaline Casts 131 H Urine Mucus Few H 06/25/20 06/25/20 06/25/20 01:45 02:02 03:03 WBC RBC Hgb Hct Neutrophils # PT INR APTT BUN Creatinine Glucose POC Glucose (mg/dL) 49 L 150 H 66 L Creatine Kinase Total Protein Urine Protein Urine Blood Ur Leukocyte Esterase Urine WBC Urine WBC Clumps Ur Squamous Epith Cells Hyaline Casts Urine Mucus 06/25/20 06/25/20 06/25/20 03:17 03:34 04:13 WBC RBC Hgb Hct Neutrophils # PT INR APTT BUN Creatinine Glucose POC Glucose (mg/dL) 59 L 136 H 72 L Creatine Kinase Total Protein Urine Protein Urine Blood Ur Leukocyte Esterase Urine WBC Urine WBC Clumps Ur Squamous Epith Cells Hyaline Casts Urine Mucus 06/25/20 06/25/20 06/25/20 04:56 05:57 06:13 WBC RBC Hgb Hct Neutrophils # PT INR APTT BUN Creatinine Glucose POC Glucose (mg/dL) 73 L 65 L 51 L Creatine Kinase Total Protein Urine Protein Urine Blood Ur Leukocyte Esterase Urine WBC Urine WBC Clumps Ur Squamous Epith Cells Hyaline Casts Urine Mucus 06/25/20 06/25/20 06/25/20 06:30 07:02 07:18 WBC RBC Hgb Hct Neutrophils # PT INR APTT BUN Creatinine Glucose POC Glucose (mg/dL) 126 H 53 L 147 H Creatine Kinase Total Protein Urine Protein Urine Blood Ur Leukocyte Esterase Urine WBC Urine WBC Clumps Ur Squamous Epith Cells Hyaline Casts Urine Mucus 06/25/20 06/25/20 06/25/20 08:13 08:32 08:51 WBC RBC Hgb Hct Neutrophils # PT INR APTT BUN Creatinine Glucose POC Glucose (mg/dL) 53 L 51 L 112 H Creatine Kinase Total Protein Urine Protein Urine Blood Ur Leukocyte Esterase Urine WBC Urine WBC Clumps Ur Squamous Epith Cells Hyaline Casts Urine Mucus 06/25/20 06/25/20 06/25/20 08:59 09:26 09:44 WBC 14.3 H RBC 3.90 L Hgb 10.7 L Hct 33.4 L Neutrophils # PT INR APTT BUN Creatinine Glucose POC Glucose (mg/dL) 60 L 53 L Creatine Kinase Total Protein Urine Protein Urine Blood Ur Leukocyte Esterase Urine WBC Urine WBC Clumps Ur Squamous Epith Cells Hyaline Casts Urine Mucus 06/25/20 06/25/20 06/25/20 10:00 10:14 10:32 WBC RBC Hgb Hct Neutrophils # PT INR APTT BUN Creatinine Glucose POC Glucose (mg/dL) 161 H 107 H 50 L Creatine Kinase Total Protein Urine Protein Urine Blood Ur Leukocyte Esterase Urine WBC Urine WBC Clumps Ur Squamous Epith Cells Hyaline Casts Urine Mucus 06/25/20 06/25/20 06/25/20 10:46 11:03 12:31 WBC RBC Hgb Hct Neutrophils # PT INR APTT BUN Creatinine Glucose POC Glucose (mg/dL) 191 H 129 H 125 H Creatine Kinase Total Protein Urine Protein Urine Blood Ur Leukocyte Esterase Urine WBC Urine WBC Clumps Ur Squamous Epith Cells Hyaline Casts Urine Mucus - Diagnostic Findings Chest x-ray: image reviewed (Chest x-ray was reviewed, no evidence of congestive heart failure, no evidence of pneumonia.) Assessment and Plan Assessment: Impression: Hypoglycemia most likely secondary to sulfonylureas Acute kidney injury, possible cardiorenal syndrome, however I believe it is mostly secondary to hypovolemia. Ischemic cardiomyopathy and LV dysfunction. Acute on chronic systolic congestive heart failure Benign essential hypertension. Dyslipidemia. History of coronary artery disease and previous multiple stents placement. And previous CABG. Recommendation: Agree with transferring the patient to the ICU. Continue D10 drip at present and monitor sugars hourly. Resume cardiac medications, avoid diuretics as much as possible for now. Monitor patient for potential side effects of Sandostatin We'll continue to follow while in the ICU. Time with Patient: Greater than 30
[2020-06-25 14:11] LABS: Glucose,Whole Blood 162 mg/dL (75-99)
[2020-06-25 15:00] LABS: Glucose,Whole Blood 216 mg/dL (75-99)
--- NOTE | 2020-06-25 15:20 | P.PN ---
Subjective Progress Note Date: 06/25/20 Principal diagnosis: shortness of breath Patient is an 84-year-old male with a history of coronary artery disease, systolic congestive heart failure status post AICD CAD, diabetes, hypertension, and dyslipidemia who presented to the emergency department with complaints of shortness of breath and abdominal pain. In the emergency department he underwent an extensive evaluation. His initial vital signs showed blood pressure of 94/60. He was started on IV fluids. Initial laboratory analysis showed white blood cell count of 19.7, INR 1.3, sodium 140, potassium 4.1, BUN 40, creatinine 2.65, glucose of 37, creatinine 228, BNP 3860. Urinalysis is negative. Chest x-ray showed no signs of congestive heart failure. He was admitted for abdominal pain and hypoglycemia. He was started initially on an amp of glucose. However he had recurrent hypoglycemia requiring multiple amps. He was then started on D5 half-normal drip. He continued to have some hypoglycemia. There were also consistent with heart failure and cardiology was consulted. On 06/25 he was changed from D5 to D10 drip. He continued to be symptomatic and hypoglycemic. Continue to require an amp of dextrose. Sugars were being checked every 15 minutes. I came to light that he had been having some relative hypoglycemia in the mornings with a blood sugar of approximately 87 and he had been decreasing his glyburide at home. Due to his refractory hypoglycemia requiring a D10 drip he was also started on octreotide subcutaneous for possible Caitlin urea over ingestion. He was transferred to the ICU for continued monitoring. Critical care was consulted. Nephrology was consulted. GI will be consulted due to his chronic diarrhea. Patient seen and examined at bedside. He reports that every time he push extra glucose he feels better. He has shortness of breath which is unchanged from baseline. His diarrhea has started to slow down somewhat. He recounts that he has been slowly decreasing his own glyburide due to lower morning blood sugars. He reports that he is frequently off balance when he stands up. He reports no headache, nausea, lightheadedness, or dizziness at rest. General: non toxic, no distress, appears at stated age, obese Derm: warm, dry Head: atraumatic, normocephalic, symmetric Eyes: EOMI, no lid lag, anicteric sclera, pupils pinpoint but reactive Mouth: no lip lesion, mucus membranes moist Cardiovascular: S1S2 reg, no murmur, positive posterior tibial pulse bilateral, negative hepatojugular reflex Lungs: CTA bilateral, no rhonchi, no rales , no accessory muscle use Abdominal: soft, nontender to palpation, no guarding, no appreciable organomegaly Ext: no gross muscle atrophy, no edema, no contractures Neuro: CN II-XI grossly intact, no focal neuro deficits Psych: Alert, oriented, appropriate affect Refractory hypoglycemia secondary to sulfonylurea use, symptomatic -Suspect combination of sulfonylurea with acute kidney injury resulting in persistent hypoglycemia -Continue with D10 drip, octreotide added, transferred ICU, report given to Dr. Lucio -Continue with Accu-Cheks every 30 minutes -Hold sulfonylurea. Will not resume this on discharge. Acute kidney injury likely secondary to diarrhea/ hypovolemia -Hold hydrochlorothiazide -Hold sulfonylurea - hold Mobic -Hold Lasix until further evaluated by nephrology -follow Cr DM 2 now with prolonged hyperglycemia - Hold glyburide - Check A1C - Follow BS Systolic CHF with EF 35-40% - cardio recs apprecaited - not on ACEI and will not start due to JANET - COREG - hold off on Lasix, Neg HJR, No fluid on CXR, BNP could be elevated due to JANET, ? component of venous insufficiency leading to lower extremity edema Chronic Diarrhea - check C diff, fecal lactoferrin/calprotectin and stiool culture - GI recs BPH -Check ortho static vital with Doxyzosyn - Proscar HTN - coreg HLD - lovastatin and fish oil DVT prophylaxis: Heparin Discussed with: Patient, nursing Anticipated discharge: 2-[address]: home with home health A total of 65 minutes was spent on the care of this complex patient more than 50% of the time was spent in counseling and care coordination. Objective - Vital Signs Vital signs: Vital Signs Temp 97.5 F L 06/25/20 08:00 Pulse 58 L 06/25/20 09:33 Resp 28 H 06/25/20 09:33 BP 109/54 06/25/20 08:00 Pulse Ox 97 06/25/20 08:00 Intake & Output 06/24/20 06/25/20 06/25/20 18:59 06:59 18:59 Weight 104.78 kg 103 kg Other: # Bowel Movements 1 - Labs CBC & Chem 7: 06/25/20 08:59 06/25/20 12:05 Labs: Abnormal Lab Results - Last 24 Hours (Table) 06/24/20 06/24/20 06/24/20 Range/Units 18:25 18:25 18:25 WBC 19.7 H (3.8-10.6) k/uL RBC 4.19 L (4.30-5.90) m/uL Hgb 11.3 L (13.0-17.5) gm/dL Hct 34.7 L (39.0-53.0) % Neutrophils # 17.4 H (1.3-7.7) k/uL PT 12.8 H (9.0-12.0) sec INR 1.3 H (<1.2) APTT 31.8 H (22.0-30.0) sec BUN 40 H (9-20) mg/dL Creatinine 2.65 H (0.66-1.25) mg/dL Glucose 37 L* (74-99) mg/dL POC Glucose (mg/dL) (75-99) mg/dL Creatine Kinase 228 H (55-170) U/L Total Protein 6.1 L (6.3-8.2) g/dL Urine Protein (Negative) Urine Blood (Negative) Ur Leukocyte Esterase (Negative) Urine WBC (0-5) /hpf Urine WBC Clumps (None) /hpf Ur Squamous Epith Cells (0-4) /hpf Hyaline Casts (0-2) /lpf Urine Mucus (None) /hpf 06/24/20 06/24/20 06/24/20 Range/Units 19:03 20:12 22:12 WBC (3.8-10.6) k/uL RBC (4.30-5.90) m/uL Hgb (13.0-17.5) gm/dL Hct (39.0-53.0) % Neutrophils # (1.3-7.7) k/uL PT (9.0-12.0) sec INR (<1.2) APTT (22.0-30.0) sec BUN (9-20) mg/dL Creatinine (0.66-1.25) mg/dL Glucose (74-99) mg/dL POC Glucose (mg/dL) 130 H 73 L (75-99) mg/dL Creatine Kinase (55-170) U/L Total Protein (6.3-8.2) g/dL Urine Protein 1+ H (Negative) Urine Blood Trace H (Negative) Ur Leukocyte Esterase Small H (Negative) Urine WBC 34 H (0-5) /hpf Urine WBC Clumps Occasional H (None) /hpf Ur Squamous Epith Cells 15 H (0-4) /hpf Hyaline Casts 131 H (0-2) /lpf Urine Mucus Few H (None) /hpf 06/25/20 06/25/20 06/25/20 Range/Units 01:45 02:02 03:03 WBC (3.8-10.6) k/uL RBC (4.30-5.90) m/uL Hgb (13.0-17.5) gm/dL Hct (39.0-53.0) % Neutrophils # (1.3-7.7) k/uL PT (9.0-12.0) sec INR (<1.2) APTT (22.0-30.0) sec BUN (9-20) mg/dL Creatinine (0.66-1.25) mg/dL Glucose (74-99) mg/dL POC Glucose (mg/dL) 49 L 150 H 66 L (75-99) mg/dL Creatine Kinase (55-170) U/L Total Protein (6.3-8.2) g/dL Urine Protein (Negative) Urine Blood (Negative) Ur Leukocyte Esterase (Negative) Urine WBC (0-5) /hpf Urine WBC Clumps (None) /hpf Ur Squamous Epith Cells (0-4) /hpf Hyaline Casts (0-2) /lpf Urine Mucus (None) /hpf 06/25/20 06/25/20 06/25/20 Range/Units 03:17 03:34 04:13 WBC (3.8-10.6) k/uL RBC (4.30-5.90) m/uL Hgb (13.0-17.5) gm/dL Hct (39.0-53.0) % Neutrophils # (1.3-7.7) k/uL PT (9.0-12.0) sec INR (<1.2) APTT (22.0-30.0) sec BUN (9-20) mg/dL Creatinine (0.66-1.25) mg/dL Glucose (74-99) mg/dL POC Glucose (mg/dL) 59 L 136 H 72 L (75-99) mg/dL Creatine Kinase (55-170) U/L Total Protein (6.3-8.2) g/dL Urine Protein (Negative) Urine Blood (Negative) Ur Leukocyte Esterase (Negative) Urine WBC (0-5) /hpf Urine WBC Clumps (None) /hpf Ur Squamous Epith Cells (0-4) /hpf Hyaline Casts (0-2) /lpf Urine Mucus (None) /hpf 06/25/20 06/25/20 06/25/20 Range/Units 04:56 05:57 06:13 WBC (3.8-10.6) k/uL RBC (4.30-5.90) m/uL Hgb (13.0-17.5) gm/dL Hct (39.0-53.0) % Neutrophils # (1.3-7.7) k/uL PT (9.0-12.0) sec INR (<1.2) APTT (22.0-30.0) sec BUN (9-20) mg/dL Creatinine (0.66-1.25) mg/dL Glucose (74-99) mg/dL POC Glucose (mg/dL) 73 L 65 L 51 L (75-99) mg/dL Creatine Kinase (55-170) U/L Total Protein (6.3-8.2) g/dL Urine Protein (Negative) Urine Blood (Negative) Ur Leukocyte Esterase (Negative) Urine WBC (0-5) /hpf Urine WBC Clumps (None) /hpf Ur Squamous Epith Cells (0-4) /hpf Hyaline Casts (0-2) /lpf Urine Mucus (None) /hpf 06/25/20 06/25/20 06/25/20 Range/Units 06:30 07:02 07:18 WBC (3.8-10.6) k/uL RBC (4.30-5.90) m/uL Hgb (13.0-17.5) gm/dL Hct (39.0-53.0) % Neutrophils # (1.3-7.7) k/uL PT (9.0-12.0) sec INR (<1.2) APTT (22.0-30.0) sec BUN (9-20) mg/dL Creatinine (0.66-1.25) mg/dL Glucose (74-99) mg/dL POC Glucose (mg/dL) 126 H 53 L 147 H (75-99) mg/dL Creatine Kinase (55-170) U/L Total Protein (6.3-8.2) g/dL Urine Protein (Negative) Urine Blood (Negative) Ur Leukocyte Esterase (Negative) Urine WBC (0-5) /hpf Urine WBC Clumps (None) /hpf Ur Squamous Epith Cells (0-4) /hpf Hyaline Casts (0-2) /lpf Urine Mucus (None) /hpf 06/25/20 06/25/20 06/25/20 Range/Units 08:13 08:32 08:51 WBC (3.8-10.6) k/uL RBC (4.30-5.90) m/uL Hgb (13.0-17.5) gm/dL Hct (39.0-53.0) % Neutrophils # (1.3-7.7) k/uL PT (9.0-12.0) sec INR (<1.2) APTT (22.0-30.0) sec BUN (9-20) mg/dL Creatinine (0.66-1.25) mg/dL Glucose (74-99) mg/dL POC Glucose (mg/dL) 53 L 51 L 112 H (75-99) mg/dL Creatine Kinase (55-170) U/L Total Protein (6.3-8.2) g/dL Urine Protein (Negative) Urine Blood (Negative) Ur Leukocyte Esterase (Negative) Urine WBC (0-5) /hpf Urine WBC Clumps (None) /hpf Ur Squamous Epith Cells (0-4) /hpf Hyaline Casts (0-2) /lpf Urine Mucus (None) /hpf 06/25/20 06/25/20 06/25/20 Range/Units 08:59 09:26 09:44 WBC 14.3 H (3.8-10.6) k/uL RBC 3.90 L (4.30-5.90) m/uL Hgb 10.7 L (13.0-17.5) gm/dL Hct 33.4 L (39.0-53.0) % Neutrophils # (1.3-7.7) k/uL PT (9.0-12.0) sec INR (<1.2) APTT (22.0-30.0) sec BUN (9-20) mg/dL Creatinine (0.66-1.25) mg/dL Glucose (74-99) mg/dL POC Glucose (mg/dL) 60 L 53 L (75-99) mg/dL Creatine Kinase (55-170) U/L Total Protein (6.3-8.2) g/dL Urine Protein (Negative) Urine Blood (Negative) Ur Leukocyte Esterase (Negative) Urine WBC (0-5) /hpf Urine WBC Clumps (None) /hpf Ur Squamous Epith Cells (0-4) /hpf Hyaline Casts (0-2) /lpf Urine Mucus (None) /hpf 06/25/20 06/25/20 Range/Units 10:00 10:14 WBC (3.8-10.6) k/uL RBC (4.30-5.90) m/uL Hgb (13.0-17.5) gm/dL Hct (39.0-53.0) % Neutrophils # (1.3-7.7) k/uL PT (9.0-12.0) sec INR (<1.2) APTT (22.0-30.0) sec BUN (9-20) mg/dL Creatinine (0.66-1.25) mg/dL Glucose (74-99) mg/dL POC Glucose (mg/dL) 161 H 107 H (75-99) mg/dL Creatine Kinase (55-170) U/L Total Protein (6.3-8.2) g/dL Urine Protein (Negative) Urine Blood (Negative) Ur Leukocyte Esterase (Negative) Urine WBC (0-5) /hpf Urine WBC Clumps (None) /hpf Ur Squamous Epith Cells (0-4) /hpf Hyaline Casts (0-2) /lpf Urine Mucus (None) /hpf
[2020-06-25 16:01] LABS: Glucose,Whole Blood 254 mg/dL (75-99)
[2020-06-25 17:05] LABS: Glucose,Whole Blood 275 mg/dL (75-99)
[2020-06-25] MEDS ORDERED: DEXTROSE 5%-0.45% NACL 1,000 ML IV SCH (17:15)
[2020-06-25 18:00] LABS: Glucose,Whole Blood 290 mg/dL (75-99)
[2020-06-25] MEDS: SODIUM CHLORIDE 0.9% 1,000 ML IV SCH (18:10)
[2020-06-25 18:59] LABS: Glucose,Whole Blood 291 mg/dL (75-99)
[2020-06-25 19:59] LABS: Glucose,Whole Blood 250 mg/dL (75-99)
[2020-06-25 22:00] LABS: Glucose,Whole Blood 242 mg/dL (75-99)
[2020-06-25] MEDS: DOXAZOSIN 4 MG TAB PO SCH (22:10)
--- NOTE | 2020-06-25 23:21 | CONS ---
CONSULTATION DATE OF DICTATION: 06/25/2020 REASON FOR CONSULTATION: Acute diarrhea. HISTORY OF PRESENT ILLNESS: The patient is an 84-year-old pleasant white male who was admitted to the hospital with acute onset of diarrhea, abdominal pain, fatigue, not feeling well, with some shortness of breath for the last one week's duration. He states that he started having diarrhea about a week ago; he was having about 5-7 loose watery bowel movements daily associated with diffuse cramping and lower abdominal discomfort but no nausea, no vomiting. No rectal bleeding or melena. He denies any recent antibiotic use. He denies any recent travel history. He came to the emergency room and subsequently had stool studies for C difficile toxin done that were reported as negative. Cultures are still pending. In the meantime, he was started on Imodium one tablet 3 times daily as needed, and his diarrhea is improving. Today he had only 2 bowel movements. He never had these symptoms in the past. His last colonoscopy was approximately 5 years ago. While he was on the floor he became extremely hypoglycemic with a blood sugar of 37, and he was transferred to the intensive care unit and currently is being monitored very closely. PAST MEDICAL HISTORY: His past medical history is significant for diabetes mellitus, hypertension, hyperlipidemia, congestive heart failure. PAST SURGICAL HISTORY: Appendectomy, cholecystectomy, prior history of colonoscopy 5 years ago. SOCIAL HISTORY: Former smoker. No alcohol use. FAMILY HISTORY: Unremarkable. MEDICATIONS: Medications at home include aspirin, Coreg, Proscar, Mevacor, Mobic, Hytrin, coenzyme Q- 10, DiaBeta, hydrochlorothiazide. ALLERGIES: PENICILLIN. REVIEW OF SYSTEMS: CARDIOPULMONARY: No chest pain or shortness of breath. GENITOURINARY: No dysuria or hematuria. MUSCULOSKELETAL: Weakness. Lower extremity weakness. NEUROLOGY: Unremarkable. PSYCHIATRY: Unremarkable. ENT/VISION: Unremarkable. CONSTITUTIONAL: No recent weight loss. No fever, chills, night sweats. GI: As mentioned above. HEMATOLOGY: Unremarkable. PHYSICAL EXAMINATION: He appears comfortable. No apparent distress. Vital signs are stable. Blood pressure is 133/49, temperature 98.3, pulse rate 60. HEENT examination unremarkable. Conjunctivae pink. Sclerae anicteric. Oral cavity no lesions. NECK: No JVD or lymph node enlargement. CHEST: Clear to auscultation. HEART: Regular rate and rhythm. ABDOMEN: Slightly distended. Mild diffuse tenderness throughout the abdomen. EXTREMITIES: No pedal edema. SKIN: No rashes. NEUROLOGIC: Alert and oriented x3. No focal deficits. LABS: Labs from today show WBC 19.7, hemoglobin 11.3, platelets normal. Neutrophils 17.4. INR is 1.3. BUN 40, creatinine 2.65. AST, ALT, T-bilirubin and alkaline phosphatase are normal. C difficile is negative. IMPRESSION: 1. Acute onset of diarrhea for the last one week's duration. Patient with bowel movements anywhere from 5-7 a day which are loose to watery in consistency with no blood or mucus in the stool. So far stool for C difficile toxin has been negative. Most likely we are dealing with infectious etiology, possibly viral or bacterial in nature. Stool cultures have been requested, which are still pending at the time of this dictation. In any event, diarrhea is gradually improving and presently on Imodium one tablet 3 times daily as needed. His last colonoscopy was about 5 years ago. 2. Diffuse abdominal pain, probably related to viral gastroenteritis/infectious colitis. 3. Hyperglycemia. 4. Longstanding history of diabetes mellitus. 5. Acute kidney injury, possibly secondary to dehydration. Cannot rule out chronic kidney disease. RECOMMENDATIONS: 1. Continue with IV hydration. 2. Await rest of the stool cultures. 3. Continue with Imodium as needed. 4. Advance diet as tolerated. 5. No plans for any endoscopic intervention at the present time since his diarrhea is gradually improving. 6. Will follow with you closely. Thank you for this consultation. MMBERNADETTEL / RUSSELLN: [id number] /
[2020-06-25 23:52] LABS: Glucose,Whole Blood 224 mg/dL (75-99)
[2020-06-26] MEDS: HEPARIN SODIUM,PORCINE 5,000 UNIT/ML 1 ML VIAL SQ SCH ×3 (00:15→16:40)
[2020-06-26 02:02] LABS: Glucose,Whole Blood 239 mg/dL (75-99)
[2020-06-26 03:52] LABS: HCT 32.3 % (39.0-53.0); HGB 10.3 gm/dL (13.0-17.5); Hypochromasia Marked; MCH 27.2 pg (25.0-35.0); MCHC 31.7 g/dL (31.0-37.0); MCV 85.6 fL (80.0-100.0); Mean Platelet Volume 8.2; Platelet Count 153 k/uL (150-450); RBC 3.78 m/uL (4.30-5.90); RDW 13.5 % (11.5-15.5); WBC 15.1 k/uL (3.8-10.6)
[2020-06-26 04:15] LABS: Glucose,Whole Blood 183 mg/dL (75-99)
[2020-06-26 04:21] LABS: Phosphorus 4.2 mg/dL (2.5-4.5); Potassium 4.4 mmol/L (3.5-5.1)
[2020-06-26 06:02] LABS: Glucose,Whole Blood 188 mg/dL (75-99)
[2020-06-26] MEDS: carvediloL 12.5 MG TAB PO SCH ×2 (06:55→16:41)
[2020-06-26 08:06] LABS: Glucose,Whole Blood 176 mg/dL (75-99)
[2020-06-26] MEDS: FINASTERIDE 5 MG TAB PO SCH (08:45)
[2020-06-26] MEDS: ASPIRIN 81 MG PO SCH (08:45)
[2020-06-26] MEDS ORDERED: ASPIRIN 81 MG PO SCH (09:00)
[2020-06-26] MEDS: LINAGLIPTIN 5 MG TABLET PO SCH (09:57)
--- NOTE | 2020-06-26 11:07 | P.PN ---
Subjective Progress Note Date: 06/26/20 Principal diagnosis: Acute diarrhea This is a pleasant 84-year-old white male who was admitted to the hospital with acute onset of diarrhea, abdominal pain, fatigue and not feeling well with significant shortness of breath over the last week's duration. He states the diarrhea has started about a week ago with 5-7 loose watery bowel movements daily associated with cramping, however denies any melena or rectal bleeding. The patient denies any recent antibiotic use or travel. Stool studies for C. difficile toxin were done and reported negative, stool cultures are pending. The patient states he's feeling well today. He denies any further diarrhea since he has been admitted to the ICU. He denies any nausea, vomiting, abdominal pain, or cramping at this time. He denies any acute changes through the night. He is tolerating his diet. Abdominal ultrasound was ordered and results are pending. Objective - Vital Signs Vital signs: Vital Signs Temp 98.9 F 06/26/20 08:00 Pulse 60 06/26/20 09:00 Resp 21 06/26/20 09:00 BP 128/58 06/26/20 09:00 Pulse Ox 97 06/26/20 09:00 Intake & Output 06/25/20 06/26/20 06/26/20 18:59 06:59 18:59 Intake Total 940 600 150 Output Total 600 400 Balance 340 200 150 Weight 110.3 kg Intake: IV 490 350 Invasive Line 1 40 Invasive Line 2 50 Sodium Chloride 0.9% 1, 400 350 000 ml @ 50 mls/hr IV . Q20H STA Rx#:[id number] Intake, IV Titration 250 150 Amount Sodium Chloride 0.9% 1, 250 150 000 ml @ 50 mls/hr IV . Q20H KRISTOPHER Rx#:[id number] Oral 450 Output: Urine 600 400 Other: Voiding Method Bedside Commode Bedside Commode # Bowel Movements 1 - Exam General appearance: The patient is alert, oriented, in no acute distress. Obese. HET: Head is normocephalic and atraumatic. Conjunctiva pink. Sclera anicteric. Neck: Supple without lymphadenopathy. Abdomen: Soft, obese, nontender, nondistended with bowel sounds. No guarding or rigidity. Extremities: Normal skin color and turgor. No pedal edema Neurological: No focal deficits. Alert and oriented 3. - Labs CBC & Chem 7: 06/26/20 03:20 06/26/20 03:20 Labs: Abnormal Lab Results - Last 24 Hours (Table) 06/25/20 06/25/20 06/25/20 Range/Units 11:03 12:05 12:31 WBC (3.8-10.6) k/uL RBC (4.30-5.90) m/uL Hgb (13.0-17.5) gm/dL Hct (39.0-53.0) % Sodium 136 L (137-145) mmol/L BUN 50 H (9-20) mg/dL Creatinine 2.42 H (0.66-1.25) mg/dL Glucose (74-99) mg/dL POC Glucose (mg/dL) 129 H 125 H (75-99) mg/dL Calcium 8.0 L (8.4-10.2) mg/dL 06/25/20 06/25/20 06/25/20 Range/Units 13:20 14:09 14:58 WBC (3.8-10.6) k/uL RBC (4.30-5.90) m/uL Hgb (13.0-17.5) gm/dL Hct (39.0-53.0) % Sodium (137-145) mmol/L BUN (9-20) mg/dL Creatinine (0.66-1.25) mg/dL Glucose (74-99) mg/dL POC Glucose (mg/dL) 146 H 162 H 216 H (75-99) mg/dL Calcium (8.4-10.2) mg/dL 06/25/20 06/25/20 06/25/20 Range/Units 15:59 17:03 17:59 WBC (3.8-10.6) k/uL RBC (4.30-5.90) m/uL Hgb (13.0-17.5) gm/dL Hct (39.0-53.0) % Sodium (137-145) mmol/L BUN (9-20) mg/dL Creatinine (0.66-1.25) mg/dL Glucose (74-99) mg/dL POC Glucose (mg/dL) 254 H 275 H 290 H (75-99) mg/dL Calcium (8.4-10.2) mg/dL 06/25/20 06/25/20 06/25/20 Range/Units 18:58 19:57 21:59 WBC (3.8-10.6) k/uL RBC (4.30-5.90) m/uL Hgb (13.0-17.5) gm/dL Hct (39.0-53.0) % Sodium (137-145) mmol/L BUN (9-20) mg/dL Creatinine (0.66-1.25) mg/dL Glucose (74-99) mg/dL POC Glucose (mg/dL) 291 H 250 H 242 H (75-99) mg/dL Calcium (8.4-10.2) mg/dL 06/25/20 06/26/20 06/26/20 Range/Units 23:50 02:00 03:20 WBC 15.1 H (3.8-10.6) k/uL RBC 3.78 L (4.30-5.90) m/uL Hgb 10.3 L (13.0-17.5) gm/dL Hct 32.3 L (39.0-53.0) % Sodium (137-145) mmol/L BUN (9-20) mg/dL Creatinine (0.66-1.25) mg/dL Glucose (74-99) mg/dL POC Glucose (mg/dL) 224 H 239 H (75-99) mg/dL Calcium (8.4-10.2) mg/dL 06/26/20 06/26/20 06/26/20 Range/Units 03:20 04:13 06:00 WBC (3.8-10.6) k/uL RBC (4.30-5.90) m/uL Hgb (13.0-17.5) gm/dL Hct (39.0-53.0) % Sodium 134 L (137-145) mmol/L BUN 54 H (9-20) mg/dL Creatinine 2.57 H (0.66-1.25) mg/dL Glucose 205 H (74-99) mg/dL POC Glucose (mg/dL) 183 H 188 H (75-99) mg/dL Calcium 8.0 L (8.4-10.2) mg/dL 06/26/20 Range/Units 08:05 WBC (3.8-10.6) k/uL RBC (4.30-5.90) m/uL Hgb (13.0-17.5) gm/dL Hct (39.0-53.0) % Sodium (137-145) mmol/L BUN (9-20) mg/dL Creatinine (0.66-1.25) mg/dL Glucose (74-99) mg/dL POC Glucose (mg/dL) 176 H (75-99) mg/dL Calcium (8.4-10.2) mg/dL Microbiology - Last 24 Hours (Table) 06/24/20 19:03 Urine Culture - Final Urine,Voided Assessment and Plan (1) Diarrhea Narrative/Plan: This is a gentleman with acute onset of diarrhea for the last 1 week's duration. Patient with bowel movements anywhere from 5-7 a day that are loose to watery in consistency with no blood or mucus in the stool. Stool studies have been collected, C. difficile cytotoxin is negative. Stool cultures are currently pending. Most likely we are dealing with an infectious etiology, possibly viral or bacterial in nature. Diarrhea has improved, patient has had no further diarrhea since yesterday morning. He has Imodium ordered as needed. His last colonoscopy was approximately 5 years ago through the CT which he reports as normal. Current Visit: Yes Status: Acute Code(s): R19.7 - DIARRHEA, UNSPECIFIED SNOMED Code(s): 41949403 (2) Abdominal pain Narrative/Plan: Likely related to viral gastroenteritis/ infectious colitis Current Visit: Yes Status: Acute Code(s): R10.9 - UNSPECIFIED ABDOMINAL PAIN SNOMED Code(s): 99463845 (3) Diabetes mellitus Current Visit: Yes Status: Acute Code(s): E11.9 - TYPE 2 DIABETES MELLITUS WITHOUT COMPLICATIONS SNOMED Code(s): 76871678 (4) Acute kidney injury Current Visit: Yes Status: Acute Code(s): N17.9 - ACUTE KIDNEY FAILURE, UNSPECIFIED SNOMED Code(s): 57161920 Plan: 1. Supportive care 2. Await rest of stool cultures 3. Continue with Imodium as needed 4. Advance diet as tolerated 5. No plans for endoscopic intervention at the present time since his diarrhea is gradually improving 6. Abdominal ultrasound reviewed, no acute findings. 6. We will continue to follow closely The impression and plan of care has been dictated as directed. Dr. Itzel Corona I performed a history and examination of this patient, discussed the same with the dictator. I agree with the dictator's note ,documented as a scribe. Any additional findings or plans will be noted.
--- NOTE | 2020-06-26 11:28 | P.PN ---
Subjective HISTORY OF PRESENTING ILLNESS This is a pleasant 84-year-old male past medical history significant for coronary artery disease status post four-vessel bypass grafting in 2009, prior to bypass grafting he had 9 stents placed, ischemic cardiomyopathy status post AICD 2013, hypertension, dyslipidemia, diabetes mellitus and chronic systolic heart failure. He follows in the office with Dr. Cade remain sitting he also sees a auto inspector in [place] where he lives half the year. He was transferred to the ICU yesterday secondary to persistent hypoglycemia. His glucose levels have improved through the night and he is currently 176. Other laboratory data also reviewed, WBC 15.1, hgb 10.3, plt 153, sodium 134, potassium 4.4, creatinine 2.57 and magnesium 2.0. Blood pressure 128/58 heart rate 68 afebrile maintaining oxygen saturation on nasal cannula. Echocardiogram obtained reveals impaired LV systolic function with EF 35-40%, basal inferior, mid inferior wall motion hyokinesia and mild aortic stenosis with mean gradient of 16 mmHg. He is seen and examined sitting up in bed. Overall he states he is feeling quite a bit better than yesterday. He still feels short of breath with exertion to the commode. He is labored with conversation. He denies chest pain, dizziness or palpitations. PHYSICAL EXAMINATION CONSTITUTIONAL: Mild respiratory distress with conversation. HEENT: Head is normocephalic. Pupils are equal, round. Sclerae anicteric. Mucous membranes of the mouth are moist. Positive JVD noted bilaterally. No carotid br uit. CHEST EXAMINATION: Diminished bilaterally with faint bibasilar crackles, no wheezes or rhonchi. No chest wall tenderness is noted on palpation or with deep breathing. HEART EXAMINATION: Regular rate and rhythm. S1, S2 heard. Systolic ejection murmur at the left sternal border, no gallops or rub. EXTREMITIES: 2+ peripheral pulses, 1+ bilateral lower extremity pitting edema and no calf tenderness. ASSESSMENT Acute on chronic systolic heart failure Hypoglycemia Acute kidney injury Leukocytosis Ischemic cardiomyopathy status post AICD Hypertension Dyslipidemia Diabetes mellitus PLAN Continue aspirin, atorvastatin and coreg as previously ordered. Awaiting nephrology evaluation for worsening renal function. Currently not on FRANTZ or ARB due to renal function. Nurse Practitioner note has been reviewed, I agree with a documented findings and plan of care. Patient was seen and examined. Objective - Vital Signs Vital signs: Vital Signs Temp 98.9 F 06/26/20 08:00 Pulse 60 06/26/20 09:00 Resp 21 06/26/20 09:00 BP 128/58 06/26/20 09:00 Pulse Ox 97 06/26/20 09:00 Intake & Output 06/25/20 06/26/20 06/26/20 18:59 06:59 18:59 Intake Total 940 600 150 Output Total 600 400 Balance 340 200 150 Weight 110.3 kg Intake: IV 490 350 Invasive Line 1 40 Invasive Line 2 50 Sodium Chloride 0.9% 1, 400 350 000 ml @ 50 mls/hr IV . Q20H STA Rx#:[id number] Intake, IV Titration 250 150 Amount Sodium Chloride 0.9% 1, 250 150 000 ml @ 50 mls/hr IV . Q20H KRISTOPHER Rx#:[id number] Oral 450 Output: Urine 600 400 Other: Voiding Method Bedside Commode Bedside Commode # Bowel Movements 1 - Labs CBC & Chem 7: 06/26/20 03:20 06/26/20 03:20 Labs: Abnormal Lab Results - Last 24 Hours (Table) 06/25/20 06/25/20 06/25/20 Range/Units 12:05 12:31 13:20 WBC (3.8-10.6) k/uL RBC (4.30-5.90) m/uL Hgb (13.0-17.5) gm/dL Hct (39.0-53.0) % Sodium 136 L (137-145) mmol/L BUN 50 H (9-20) mg/dL Creatinine 2.42 H (0.66-1.25) mg/dL Glucose (74-99) mg/dL POC Glucose (mg/dL) 125 H 146 H (75-99) mg/dL Calcium 8.0 L (8.4-10.2) mg/dL 06/25/20 06/25/20 06/25/20 Range/Units 14:09 14:58 15:59 WBC (3.8-10.6) k/uL RBC (4.30-5.90) m/uL Hgb (13.0-17.5) gm/dL Hct (39.0-53.0) % Sodium (137-145) mmol/L BUN (9-20) mg/dL Creatinine (0.66-1.25) mg/dL Glucose (74-99) mg/dL POC Glucose (mg/dL) 162 H 216 H 254 H (75-99) mg/dL Calcium (8.4-10.2) mg/dL 06/25/20 06/25/20 06/25/20 Range/Units 17:03 17:59 18:58 WBC (3.8-10.6) k/uL RBC (4.30-5.90) m/uL Hgb (13.0-17.5) gm/dL Hct (39.0-53.0) % Sodium (137-145) mmol/L BUN (9-20) mg/dL Creatinine (0.66-1.25) mg/dL Glucose (74-99) mg/dL POC Glucose (mg/dL) 275 H 290 H 291 H (75-99) mg/dL Calcium (8.4-10.2) mg/dL 06/25/20 06/25/20 06/25/20 Range/Units 19:57 21:59 23:50 WBC (3.8-10.6) k/uL RBC (4.30-5.90) m/uL Hgb (13.0-17.5) gm/dL Hct (39.0-53.0) % Sodium (137-145) mmol/L BUN (9-20) mg/dL Creatinine (0.66-1.25) mg/dL Glucose (74-99) mg/dL POC Glucose (mg/dL) 250 H 242 H 224 H (75-99) mg/dL Calcium (8.4-10.2) mg/dL 06/26/20 06/26/20 06/26/20 Range/Units 02:00 03:20 03:20 WBC 15.1 H (3.8-10.6) k/uL RBC 3.78 L (4.30-5.90) m/uL Hgb 10.3 L (13.0-17.5) gm/dL Hct 32.3 L (39.0-53.0) % Sodium 134 L (137-145) mmol/L BUN 54 H (9-20) mg/dL Creatinine 2.57 H (0.66-1.25) mg/dL Glucose 205 H (74-99) mg/dL POC Glucose (mg/dL) 239 H (75-99) mg/dL Calcium 8.0 L (8.4-10.2) mg/dL 06/26/20 06/26/20 06/26/20 Range/Units 04:13 06:00 08:05 WBC (3.8-10.6) k/uL RBC (4.30-5.90) m/uL Hgb (13.0-17.5) gm/dL Hct (39.0-53.0) % Sodium (137-145) mmol/L BUN (9-20) mg/dL Creatinine (0.66-1.25) mg/dL Glucose (74-99) mg/dL POC Glucose (mg/dL) 183 H 188 H 176 H (75-99) mg/dL Calcium (8.4-10.2) mg/dL Microbiology - Last 24 Hours (Table) 06/24/20 19:03 Urine Culture - Final Urine,Voided
--- NOTE | 2020-06-26 11:46 | US ---
EXAMINATION TYPE: US abdomen complete DATE OF EXAM: 06/26/2020 COMPARISON: NONE CLINICAL HISTORY: abdominal pain. Stomach gas per patient; gallbladder removed, diabetic, JANET, CAD wi th stents, large body habitus; right renal mass was removed per patient history. EXAM MEASUREMENTS: Liver Length: 14.2 cm Gallbladder Wall: surgically removed per patient and cholecystectomy scar noted on abdomen CBD: 0.3 cm Spleen: 11.0 cm Right Kidney: 12.8 x 4.7 x 6.8 cm Left Kidney: 11.5 x 7.5 x 5.9 cm Pancreas: Obscured by bowel gas Liver: Obscured by overlying bowel gas, limited left and right lobe views seen, small amount of asci gifty seen inferior to liver Gallbladder: surgically absent per patient Evidence for sonographic Benavidez's sign: no CBD: wnl Spleen: wnl, pleural effusion noted in 2 views superior to diaphragm Right Kidney: limitedly seen due to overlying bowel gas Left Kidney: No hydronephrosis or masses seen Upper IVC: Obscured by overlying bowel gas Abd Aorta: Obscured by overlying bowel gas IMPRESSION: 1. Limited examination due to bowel gas. 2. No suspicious acute abdominal changes by ultrasound. 3. Some minimal pleural effusion may be present on the left. 4. Small amount of ascites adjacent to the liver
[2020-06-26 11:47] LABS: Glucose,Whole Blood 179 mg/dL (75-99)
[2020-06-26] MEDS: ATORVASTATIN 10 MG TAB PO SCH (12:06)
[2020-06-26] MEDS: INSULIN ASPART (NovoLOG) 100 UNIT/ML VIAL SQ SCH ×3 (12:06→21:33)
--- NOTE | 2020-06-26 13:05 | P.PN ---
Subjective Progress Note Date: 06/26/20 (delayed charating seen at 0915) Principal diagnosis: shortness of breath Patient is an 84-year-old male with a history of coronary artery disease, systolic congestive heart failure status post AICD CAD, diabetes, hypertension, and dyslipidemia who presented to the emergency department with complaints of shortness of breath and abdominal pain. In the emergency department he un derwent an extensive evaluation. His initial vital signs showed blood pressure of 94/60. He was started on IV fluids. Initial laboratory analysis showed white blood cell count of 19.7, INR 1.3, sodium 140, potassium 4.1, BUN 40, creatinine 2.65, glucose of 37, creatinine 228, BNP 3860. Urinalysis is negative. Chest x-ray showed no signs of congestive heart failure. He was admitted for abdominal pain and hypoglycemia. He was started initially on an amp of glucose. However he had recurrent hypoglycemia requiring multiple amps. He was then started on D5 half-normal drip. He continued to have some hypoglycemia. There were also concerns for heart failure and cardiology was consulted. On 06/25 he was changed from D5 to D10 drip. He continued to be symptomatic and hypoglycemic. Continue to require an amp of dextrose. Sugars were being checked every 15 minutes. I came to light that he had been having some relative hypoglycemia in the mornings with a blood sugar of approximately 87 and he had been decreasing his glyburide at home. Due to his refractory hypoglycemia requiring a D10 drip he was also started on octreotide subcutaneous due to persistent hypoglycemia with sulfonurea use. He was transferred to the ICU for continued monitoring. Critical care was consulted. Nephrology was consulted. GI will be consulted due to his chronic diarrhea. His diarrhea abated and was felt to be due to viral or bacterial gastroenteritis. His fecal lactoferrin negative, c diff negative, and COVID negative. His blood sugars improved throughout the day on 06/25 and he was able to come off dextrose and octreotide. He was continued on gentle IVF. Echo showed hypokinesis and reduced EF. Patient seen and examined at bedside. No additional bowel movements. Feeling well. He states his breathing is the same as yesterday. No nausea or vomiting. Still feeling winded with decreased exercise tolerance. General: non toxic, no distress, appears at stated age, obese Derm: warm, dry Head: atraumatic, normocephalic, symmetric Eyes: EOMI, no lid lag, anicteric sclera, pupils pinpoint but reactive Mouth: no lip lesion, mucus membranes moist Cardiovascular: S1S2 reg, no murmur, positive posterior tibial pulse bilateral Lungs: Decreased breath sounds bilateral, no rhonchi, no rales , no accessory muscle use Abdominal: soft, nontender to palpation, no guarding, no appreciable organomegaly Ext: no gross muscle atrophy, 2+ edema, no contractures Neuro: CN II-XI grossly intact, no focal neuro deficits Psych: Alert, oriented, appropriate affect Acute kidney injury likely secondary to diarrhea/ hypovolemia -Hold hydrochlorothiazide -Hold sulfonylurea -hold Mobic -Await nephrorecs - No hydronephrosis on abdominal ultrasound -follow Cr DM 2 now with prolonged hypoglycemia - start SSI, tradjenta - Hold glyburide - Await A1C - Follow BS Systolic CHF with EF 35-40% - cardio recs appreciated - not on ACEI and will not start due to JANET - COREG - hold off on Lasix, Neg HJR, No fluid on CXR, BNP could be elevated due to JANET, ? component of venous insufficiency leading to lower extremity edema Chronic Diarrhea - C diff, fecal lactoferrin/calprotectin- negative - stool culture pending - GI recs BPH -Check ortho static vitals with Doxyzosyn - Proscar HTN - coreg HLD - lovastatin and fish oil Refractory hypoglycemia secondary to sulfonylurea use, symptomatic, resolved DVT prophylaxis: Heparin Discussed with: Patient, nursing Anticipated discharge: 2-[address]: home with home health A total of 35 minutes was spent on the care of this complex patient more than 50% of the time was spent in counseling and care coordination. Objective - Vital Signs Vital signs: Vital Signs Temp 98.9 F 06/26/20 08:00 Pulse 67 06/26/20 12:00 Resp 22 06/26/20 12:00 BP 89/53 06/26/20 12:00 Pulse Ox 94 L 06/26/20 12:00 Intake & Output 06/25/20 06/26/20 06/26/20 18:59 06:59 18:59 Intake Total 940 600 150 Output Total 600 400 Balance 340 200 150 Weight 110.3 kg Intake: IV 490 350 Invasive Line 1 40 Invasive Line 2 50 Sodium Chloride 0.9% 1, 400 350 000 ml @ 50 mls/hr IV . Q20H STA Rx#:[id number] Intake, IV Titration 250 150 Amount Sodium Chloride 0.9% 1, 250 150 000 ml @ 50 mls/hr IV . Q20H KRISTOPHER Rx#:[id number] Oral 450 Output: Urine 600 400 Other: Voiding Method Bedside Commode Bedside Commode # Bowel Movements 1 - Labs CBC & Chem 7: 06/26/20 03:20 06/26/20 03:20 Labs: Abnormal Lab Results - Last 24 Hours (Table) 06/25/20 06/25/20 06/25/20 Range/Units 12:05 13:20 14:09 WBC (3.8-10.6) k/uL RBC (4.30-5.90) m/uL Hgb (13.0-17.5) gm/dL Hct (39.0-53.0) % Sodium 136 L (137-145) mmol/L BUN 50 H (9-20) mg/dL Creatinine 2.42 H (0.66-1.25) mg/dL Glucose (74-99) mg/dL POC Glucose (mg/dL) 146 H 162 H (75-99) mg/dL Calcium 8.0 L (8.4-10.2) mg/dL 06/25/20 06/25/20 06/25/20 Range/Units 14:58 15:59 17:03 WBC (3.8-10.6) k/uL RBC (4.30-5.90) m/uL Hgb (13.0-17.5) gm/dL Hct (39.0-53.0) % Sodium (137-145) mmol/L BUN (9-20) mg/dL Creatinine (0.66-1.25) mg/dL Glucose (74-99) mg/dL POC Glucose (mg/dL) 216 H 254 H 275 H (75-99) mg/dL Calcium (8.4-10.2) mg/dL 06/25/20 06/25/20 06/25/20 Range/Units 17:59 18:58 19:57 WBC (3.8-10.6) k/uL RBC (4.30-5.90) m/uL Hgb (13.0-17.5) gm/dL Hct (39.0-53.0) % Sodium (137-145) mmol/L BUN (9-20) mg/dL Creatinine (0.66-1.25) mg/dL Glucose (74-99) mg/dL POC Glucose (mg/dL) 290 H 291 H 250 H (75-99) mg/dL Calcium (8.4-10.2) mg/dL 06/25/20 06/25/20 06/26/20 Range/Units 21:59 23:50 02:00 WBC (3.8-10.6) k/uL RBC (4.30-5.90) m/uL Hgb (13.0-17.5) gm/dL Hct (39.0-53.0) % Sodium (137-145) mmol/L BUN (9-20) mg/dL Creatinine (0.66-1.25) mg/dL Glucose (74-99) mg/dL POC Glucose (mg/dL) 242 H 224 H 239 H (75-99) mg/dL Calcium (8.4-10.2) mg/dL 06/26/20 06/26/20 06/26/20 Range/Units 03:20 03:20 04:13 WBC 15.1 H (3.8-10.6) k/uL RBC 3.78 L (4.30-5.90) m/uL Hgb 10.3 L (13.0-17.5) gm/dL Hct 32.3 L (39.0-53.0) % Sodium 134 L (137-145) mmol/L BUN 54 H (9-20) mg/dL Creatinine 2.57 H (0.66-1.25) mg/dL Glucose 205 H (74-99) mg/dL POC Glucose (mg/dL) 183 H (75-99) mg/dL Calcium 8.0 L (8.4-10.2) mg/dL 06/26/20 06/26/20 06/26/20 Range/Units 06:00 08:05 11:46 WBC (3.8-10.6) k/uL RBC (4.30-5.90) m/uL Hgb (13.0-17.5) gm/dL Hct (39.0-53.0) % Sodium (137-145) mmol/L BUN (9-20) mg/dL Creatinine (0.66-1.25) mg/dL Glucose (74-99) mg/dL POC Glucose (mg/dL) 188 H 176 H 179 H (75-99) mg/dL Calcium (8.4-10.2) mg/dL Microbiology - Last 24 Hours (Table) 06/24/20 19:03 Urine Culture - Final Urine,Voided
[2020-06-26] MEDS: SODIUM CHLORIDE 0.9% 1,000 ML IV SCH (14:21)
--- NOTE | 2020-06-26 15:10 | P.PN ---
Subjective Progress Note Date: 06/26/20 Principal diagnosis: Hypoglycemia secondary to sulfonylureas This is an 84-year-old white male with history of multiple medical problems including type 2 diabetes, coronary artery disease and previous CABG as well as multiple stents placed. History of chronic systolic congestive heart failure, and previous AICD placement. Patient presented to the ER on 06/24/20, mostly complaining of 2 days history of shortness of breath, some vague abdominal discomfort. Patient noticed this on Tuesday as he was coming out of his basement shower, and he was trying to walk upstairs. He became extremely short of breath, and he was also complaining of inability to perform his ADLs. Patient has also been complaining of diarrhea on a regular basis 5-6 watery bowel movements on a daily basis intermittently. Workup in the ER revealed low blood sugar of 37. Renal profile was abnormal with a BUN of 40 and creatinine of 2.65, patient was also noted to have elevated pro BNP level. Chest x-ray showed cardiomegaly, no evidence of pulmonary edema or pneumonia. Since admission, patient has been noted to have recurrent hypoglycemic episodes, and required multiple amps of D50. This morning patient had to be placed on D10W drip, and I was notified by the admitting physician about this patient and I recommended transferring the patient to the ICU. Patient has been taking his glipizide 2.5 mg daily prior to admission in spite of his worsening renal function, and in spite of his worsening GI symptoms/diarrhea. At any rate considering the patient is being transferred to the ICU, I was asked to see the patient on consultation. Patient will be seen by cardiology and nephrology on consultation. In the meantime echocardiogram is pending, Patient was reevaluated today on 06/26/20, patient remains in the ICU, and he seems to be doing much better today compared to the last 24 hours. Patient was switched from D10 drip to D5W. No further episodes of hypoglycemia. Denies any nausea vomiting abdominal pain, he does have chronic shortness of breath related to cardiomyopathy and LV dysfunction with ejection fraction of 35%. All labs today were reviewed, renal functioning is a bit worse with a BUN of 54 creatinine 2.57. WBC is 15.1 hemoglobin is 10.3. PCR for coronary is negative. Objective - Vital Signs Vital signs: Vital Signs Temp 98.9 F 06/26/20 08:00 Pulse 67 06/26/20 12:00 Resp 22 06/26/20 12:00 BP 91/56 06/26/20 14:00 Pulse Ox 94 L 06/26/20 12:00 Intake & Output 06/25/20 06/26/20 06/26/20 18:59 06:59 18:59 Intake Total 940 600 150 Output Total 600 400 Balance 340 200 150 Weight 110.3 kg Intake: IV 490 350 Invasive Line 1 40 Invasive Line 2 50 Sodium Chloride 0.9% 1, 400 350 000 ml @ 50 mls/hr IV . Q20H STA Rx#:[id number] Intake, IV Titration 250 150 Amount Sodium Chloride 0.9% 1, 250 150 000 ml @ 50 mls/hr IV . Q20H KRISTOPHER Rx#:[id number] Oral 450 Output: Urine 600 400 Other: Voiding Method Bedside Commode Bedside Commode # Bowel Movements 1 - Exam Physical Exam: Revealed a 84-year-old white male obese in no form of distress. Head: Atraumatic, normocephalic. HEENT:[Neck is supple.] [No neck masses.] [No thyromegaly.] [No JVD.] PERRLA, EOMI, no icterus. Moist mucous membranes noted. Chest: [Diminished breath sounds at the bases, minimal crackles at the bases, no rhonchi and no wheezes. Cardiac Exam: Normal S1 and S2, 2/6 systolic murmur thought the precordium especially at the left lower sternal border. Abdomen: [Obese, Soft, slightly tender on palpation, no rebound, no guarding. No megaly. Positive bowel sounds. Extremities: [No clubbing, trace of bipedal edema, no cyanosis.] Neurological Exam: [No focal neurologic deficit.] Alert and oriented 3. Psychiatric: Normal mood, affect and normal mental status. Skin: No rashes. - Labs CBC & Chem 7: 06/26/20 03:20 06/26/20 03:20 Labs: Abnormal Lab Results - Last 24 Hours (Table) 06/25/20 06/25/20 06/25/20 Range/Units 15:59 17:03 17:59 WBC (3.8-10.6) k/uL RBC (4.30-5.90) m/uL Hgb (13.0-17.5) gm/dL Hct (39.0-53.0) % Sodium (137-145) mmol/L BUN (9-20) mg/dL Creatinine (0.66-1.25) mg/dL Glucose (74-99) mg/dL POC Glucose (mg/dL) 254 H 275 H 290 H (75-99) mg/dL Calcium (8.4-10.2) mg/dL 06/25/20 06/25/20 06/25/20 Range/Units 18:58 19:57 21:59 WBC (3.8-10.6) k/uL RBC (4.30-5.90) m/uL Hgb (13.0-17.5) gm/dL Hct (39.0-53.0) % Sodium (137-145) mmol/L BUN (9-20) mg/dL Creatinine (0.66-1.25) mg/dL Glucose (74-99) mg/dL POC Glucose (mg/dL) 291 H 250 H 242 H (75-99) mg/dL Calcium (8.4-10.2) mg/dL 06/25/20 06/26/20 06/26/20 Range/Units 23:50 02:00 03:20 WBC 15.1 H (3.8-10.6) k/uL RBC 3.78 L (4.30-5.90) m/uL Hgb 10.3 L (13.0-17.5) gm/dL Hct 32.3 L (39.0-53.0) % Sodium (137-145) mmol/L BUN (9-20) mg/dL Creatinine (0.66-1.25) mg/dL Glucose (74-99) mg/dL POC Glucose (mg/dL) 224 H 239 H (75-99) mg/dL Calcium (8.4-10.2) mg/dL 06/26/20 06/26/20 06/26/20 Range/Units 03:20 04:13 06:00 WBC (3.8-10.6) k/uL RBC (4.30-5.90) m/uL Hgb (13.0-17.5) gm/dL Hct (39.0-53.0) % Sodium 134 L (137-145) mmol/L BUN 54 H (9-20) mg/dL Creatinine 2.57 H (0.66-1.25) mg/dL Glucose 205 H (74-99) mg/dL POC Glucose (mg/dL) 183 H 188 H (75-99) mg/dL Calcium 8.0 L (8.4-10.2) mg/dL 06/26/20 06/26/20 Range/Units 08:05 11:46 WBC (3.8-10.6) k/uL RBC (4.30-5.90) m/uL Hgb (13.0-17.5) gm/dL Hct (39.0-53.0) % Sodium (137-145) mmol/L BUN (9-20) mg/dL Creatinine (0.66-1.25) mg/dL Glucose (74-99) mg/dL POC Glucose (mg/dL) 176 H 179 H (75-99) mg/dL Calcium (8.4-10.2) mg/dL Microbiology - Last 24 Hours (Table) 06/24/20 19:03 Urine Culture - Final Urine,Voided Assessment and Plan Assessment: Impression: Hypoglycemia most likely secondary to sulfonylureas Acute kidney injury, possible cardiorenal syndrome Ischemic cardiomyopathy and LV dysfunction. Acute on chronic systolic congestive heart failure Benign essential hypertension. Dyslipidemia. History of coronary artery disease and previous multiple stents placement. And previous CABG. Recommendation: Transfer patient out of the ICU to a cardiac bed. Discontinued D10 and switch to D5W. Resume cardiac medications, gentle diuresis if needed. Will follow when necessary once patient is transferred out of the ICU. Time with Patient: Less than 30
[2020-06-26 16:40] LABS: Glucose,Whole Blood 100 mg/dL (75-99)
--- NOTE | 2020-06-26 17:04 | CONS ---
CONSULTATION REASON FOR CONSULT: Renal failure. HISTORY OF PRESENT ILLNESS: The patient is an 84-year-old male who was admitted to the hospital on 06/24/2020 with complaints of shortness of breath. He also had some abdominal pain. The patient had developed significant worsening of his lower extremity edema along with severe shortness of breath. His blood sugar was also low when he first came in. The patient was maintained on D10. He received Sandostatin and his sugars are improved. The patient denies any prior history of kidney diseases. His serum creatinine was 2.65 mg/dL on admission. Previous creatinine on 06/05/2020 was 1.2. The patient states he has been voiding well. Review of his vital signs shows no significant episodes of hypotension, although I see a blood pressure of 94/60 on initial admission. Currently patient is maintained on normal saline at about 50 mL/hour. UA shows 1+ protein, trace blood and WBCs 34. Chest x-ray from yesterday shows no acute cardiopulmonary process. Overall, patient states that his breathing has improved. It does not look like he was diuresed. Echocardiogram done this admission yesterday showed ejection fraction 35% to 40%. PAST MEDICAL HISTORY: Diabetes, history of CHF, hyperlipidemia, hypertension. PAST SURGICAL HISTORY: Appendectomy cholecystectomy. SOCIAL HISTORY: Patient is a former smoker. No history of drug abuse or alcohol abuse. MEDICATIONS: Medications prior to admission included aspirin, Coreg, Proscar, Mevacor, Mobic, Hytrin, DiaBeta, hydrochlorothiazide. ALLERGIES: ALLERGIES include PENICILLIN, which causes rash and hives. REVIEW OF SYSTEMS: As per HPI. Other systems negative. PHYSICAL EXAMINATION: Patient is comfortable, awake. He is not in any acute distress. Overall, he states he is feeling better. Blood pressure 128/58, heart rate 60 per minute. He is afebrile. EXAMINATION OF THE HEART: S1 and S2. EXAMINATION OF LUNGS: Bilateral breath sounds are heard. ABDOMEN: Soft, non-tender, obese. Examination of lower extremities shows trace edema bilaterally. CLINICAL SUPERVISOR exam is grossly intact. LABS: Labs show sodium of 134, potassium 4.4, BUN 54, serum creatinine 2.57, glucose 205, phosphorus 4.2, magnesium 2.0. UA shows 1+ protein and trace blood, WBCs 34. ASSESSMENT: 1. Acute kidney injury, possibly related to NSAIDs that patient was taking at home. Also rule out urine retention. Blood pressure was low on initial admission; therefore there may be a component of ischemic ATN as well. Currently patient is voiding well. I have asked for a post-void residual. I will continue with the saline for now, as he does not appear to be in overt heart failure. Continue to maintain patient off of NSAIDs, avoid significant hypotension. I would hold off on metformin, given the acute renal failure. 2. Hypoglycemia, currently improved. 3. Type 2 diabetes. 4. Rule out chronic kidney disease. Previous creatinine was 1.2 in May of 2020 and UA shows trace protein. 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 5. Cardiomyopathy, ejection fraction 35% to 40%. PLAN: Continue with saline for now. Check post-void residual. Avoid NSAIDs. Patient will need followup as outpatient. Ultrasound of the abdomen shows no evidence of hydronephrosis. Thank you for this consultation. Will continue to follow the patient with you during his hospitalization. MMODL / IJN: [id number] / JOSE
[2020-06-26 21:13] LABS: Glucose,Whole Blood 131 mg/dL (75-99)
[2020-06-26] MEDS: DOXAZOSIN 4 MG TAB PO SCH (21:33)
[2020-06-27] MEDS: HEPARIN SODIUM,PORCINE 5,000 UNIT/ML 1 ML VIAL SQ SCH ×3 (00:33→16:41)
[2020-06-27] MEDS: LOPERAMIDE 2 MG CAP PO PRN ×2 (02:25→12:26)
[2020-06-27 06:34] LABS: Glucose,Whole Blood 130 mg/dL (75-99)
[2020-06-27] MEDS: INSULIN ASPART (NovoLOG) 100 UNIT/ML VIAL SQ SCH ×4 (06:52→21:50)
[2020-06-27] MEDS: carvediloL 12.5 MG TAB PO SCH ×2 (07:11→16:41)
[2020-06-27 07:57] LABS: Calcium 8.2 mg/dL (8.4-10.2); Magnesium 2.1 mg/dL (1.6-2.3); Potassium 4.1 mmol/L (3.5-5.1)
[2020-06-27 08:10] LABS: HCT 33.2 % (39.0-53.0); HGB 10.1 gm/dL (13.0-17.5); Hypochromasia Marked; MCHC 30.3 g/dL (31.0-37.0); MCV 85.7 fL (80.0-100.0); Mean Platelet Volume 8.1; Platelet Count 204 k/uL (150-450); RBC 3.88 m/uL (4.30-5.90); RDW 13.6 % (11.5-15.5); WBC 17.8 k/uL (3.8-10.6)
--- NOTE | 2020-06-27 09:48 | P.PN ---
Subjective HISTORY OF PRESENTING ILLNESS This is a pleasant 84-year-old male past medical history significant for coronary artery disease status post four-vessel bypass grafting in 2009, prior to bypass grafting he had 9 stents placed, ischemic cardiomyopathy status post AICD 2013, hypertension, dyslipidemia, diabetes mellitus and chronic systolic heart failure. He follows in the office with Dr. Cade remain sitting he also sees a college service officer in [place] where he lives half the year. He is seen and examined resting comfortably lying flat in bed in no acute distress. Overall he states he is feeling much better since admission. He has no w orsening shortness of breath, no chest pain, dizziness or palpitations. However he is complaining of his diarrhea starting again last night. GI is following. They started him on Imodium. Blood pressure 131/56 heart rate 63 afebrile maintaining oxygen saturation on nasal cannula. Laboratory data reviewed, WBC 17.8, hemoglobin 10.1, platelets 204, sodium 138, potassium 4.1, creatinine 2.71 and magnesium 2.1. Currently maintained on aspirin 81 mg daily, atorvastatin 10 mg daily, carvedilol 12.5 mg twice a day. PHYSICAL EXAMINATION CONSTITUTIONAL: Mild respiratory distress with conversation. HEENT: Head is normocephalic. Pupils are equal, round. Sclerae anicteric. Mucous membranes of the mouth are moist. Positive JVD noted bilaterally. No carotid bruit. CHEST EXAMINATION: Diminished bilaterally with faint bibasilar crackles, no wheezes or rhonchi. No chest wall tenderness is noted on palpation or with deep breathing. HEART EXAMINATION: Regular rate and rhythm. S1, S2 heard. Systolic ejection murmur at the left sternal border, no gallops or rub. EXTREMITIES: 2+ peripheral pulses, 1+ bilateral lower extremity pitting edema and no calf tenderness. ASSESSMENT Acute on chronic systolic heart failure Hypoglycemia Acute kidney injury Leukocytosis Ischemic cardiomyopathy status post AICD Hypertension Dyslipidemia Diabetes mellitus PLAN Continue current medical regimen. Consider resuming small dose of oral diuretic when kidney function stabilizes. Nurse Practitioner note has been reviewed, I agree with a documented findings and plan of care. Patient was seen and examined. Objective - Vital Signs Vital signs: Vital Signs Temp 97.7 F 06/27/20 08:00 Pulse 63 06/27/20 08:00 Resp 22 06/27/20 08:00 BP 131/56 06/27/20 08:00 Pulse Ox 100 06/27/20 08:00 Intake & Output 06/26/20 06/27/20 06/27/20 18:59 06:59 18:59 Intake Total 266 180 Output Total 400 Balance 266 -400 180 Intake: Intake, IV Titration 150 Amount Sodium Chloride 0.9% 1, 150 000 ml @ 50 mls/hr IV . Q20H [facility] Rx#:[id number] Oral 116 180 Output: Urine 400 Other: Voiding Method Bedside Commode - Labs CBC & Chem 7: 06/27/20 07:13 06/27/20 07:13 Labs: Abnormal Lab Results - Last 24 Hours (Table) 06/26/20 06/26/20 06/26/20 Range/Units 11:46 16:39 20:57 WBC (3.8-10.6) k/uL RBC (4.30-5.90) m/uL Hgb (13.0-17.5) gm/dL Hct (39.0-53.0) % MCHC (31.0-37.0) g/dL BUN (9-20) mg/dL Creatinine (0.66-1.25) mg/dL Glucose (74-99) mg/dL POC Glucose (mg/dL) 179 H 100 H 131 H (75-99) mg/dL Calcium (8.4-10.2) mg/dL 06/27/20 06/27/20 06/27/20 Range/Units 06:33 07:13 07:13 WBC 17.8 H (3.8-10.6) k/uL RBC 3.88 L (4.30-5.90) m/uL Hgb 10.1 L (13.0-17.5) gm/dL Hct 33.2 L (39.0-53.0) % MCHC 30.3 L (31.0-37.0) g/dL BUN 72 H (9-20) mg/dL Creatinine 2.71 H (0.66-1.25) mg/dL Glucose 125 H (74-99) mg/dL POC Glucose (mg/dL) 130 H (75-99) mg/dL Calcium 8.2 L (8.4-10.2) mg/dL Microbiology - Last 24 Hours (Table) 06/24/20 19:03 Urine Culture - Final Urine,Voided
[2020-06-27] MEDS: FINASTERIDE 5 MG TAB PO SCH (10:28)
[2020-06-27] MEDS: ASPIRIN 81 MG PO SCH (10:28)
[2020-06-27] MEDS: LINAGLIPTIN 5 MG TABLET PO SCH (10:28)
[2020-06-27 10:51] VITALS: BMI 36.9
[2020-06-27] MEDS: SODIUM CHLORIDE 0.9% 1,000 ML IV SCH (11:23)
[2020-06-27 11:55] LABS: Glucose,Whole Blood 131 mg/dL (75-99)
--- NOTE | 2020-06-27 11:55 | PN ---
PROGRESS NOTE Patient is seen for followup for acute kidney injury on top of chronic kidney disease. Patient was admitted to the hospital on 06/24/2020 with abdominal pain, shortness of breath. He did get one dose of Lasix on initial admission. However, he became significantly hypoglycemic and was on D10 and D5 for some time. Serum creatinine was 2.6 on initial admission. The patient has been maintained on saline at 50 mL an hour. Since admission, he has had fair urine output with no with no evidence of urine retention. The patient's postvoid residual was less than 20 mL. He is currently not on any nephrotoxic medications. Again blood pressure has not been low. The ultrasound does not show any hydronephrosis and an echocardiogram done this admission shows ejection fraction of 35%-40%. This morning, patient is complaining of increased shortness of breath. He has just had physical therapy. He denies any chest pains. Urine output documented for 24 hours is only 400. However, patient states he has been voiding frequently. PHYSICAL EXAMINATION: On examination today, blood pressure 131/56, heart rate 63 per minute, he is afebrile. Examination of the heart S1, S2. Examination of the lungs, bilateral breath sounds are heard. Decreased breath sounds at bases with basal crackles heard. Abdomen is soft, nontender. Examination of the lower extremities shows edema 1+ bilaterally. DAYLIGHT DRILLER exam grossly intact. LABS: Show sodium 138, potassium 4.1, chloride 105, BUN 72, serum creatinine 2.71, hemoglobin 10.1 g/dL. ASSESSMENT: 1. Acute kidney injury, most likely cardiorenal. There was an element of hypovolemia initially. However, at this time, patient does not look significantly hypovolemic. I will repeat a chest x-ray. He has been on normal saline and this may be cardiorenal since creatinine continues to climb. I will add dobutamine and we will discontinue the IV fluids and diurese patient. 2. Cardiomyopathy, ejection fraction 35%-40%. 3. Chronic kidney disease, stage 3 with previous creatinine around 1.2 in May of 2020. UA shows trace protein, possible underlying diabetic kidney disease. 4. Hypoglycemia on initial admission, associated with sulfonylureas in the setting of impaired renal function. 5. Type 2 diabetes. PLAN: Check chest x-ray. Discontinue IV fluids. Add dobutamine and I will give a dose of IV Lasix depending on his chest x-ray findings. MMVINCE / RUSSELLN: [id number] / MTDD
--- NOTE | 2020-06-27 12:02 | P.PN ---
Subjective Progress Note Date: 06/27/20 Principal diagnosis: Acute diarrhea This is a pleasant 84-year-old white male who was admitted to the hospital with acute onset of diarrhea, abdominal pain, fatigue and not feeling well with significant shortness of breath over the last week's duration. He states the diarrhea has started about a week ago with 5-7 loose watery bowel movements daily associated with cramping, however denies any melena or rectal bleeding. The patient denies any recent antibiotic use or travel. Stool studies for C. difficile toxin were done and reported negative, stool cultures are pending. The patient states he's feeling well today. He does state he did have 2 loose bowel movements yesterday evening and one this morning. He denies any abdominal pain, nausea or vomiting. He did state that he did feel gassy. He denies any melena or rectal bleeding. Objective - Vital Signs Vital signs: Vital Signs Temp 97.7 F 06/27/20 08:00 Pulse 63 06/27/20 08:00 Resp 22 06/27/20 08:00 BP 131/56 06/27/20 08:00 Pulse Ox 100 06/27/20 08:00 Intake & Output 06/26/20 06/27/20 06/27/20 18:59 06:59 18:59 Intake Total 266 180 Output Total 400 Balance 266 -400 180 Weight 110.3 kg Intake: Intake, IV Titration 150 Amount Sodium Chloride 0.9% 1, 150 000 ml @ 50 mls/hr IV . Q20H [facility] Rx#:[id number] Oral 116 180 Output: Urine 400 Other: Voiding Method Bedside Commode # Voids 1 # Bowel Movements 1 - Exam General appearance: The patient is alert, oriented, in no acute distress. Obese. HET: Head is normocephalic and atraumatic. Conjunctiva pink. Sclera anicteric. Neck: Supple without lymphadenopathy. Abdomen: Soft, obese, nontender, nondistended with bowel sounds. No guarding or rigidity. Extremities: Normal skin color and turgor. No pedal edema Neurological: No focal deficits. Alert and oriented 3. - Labs CBC & Chem 7: 06/27/20 07:13 06/27/20 07:13 Labs: Abnormal Lab Results - Last 24 Hours (Table) 06/26/20 06/26/20 06/27/20 Range/Units 16:39 20:57 06:33 WBC (3.8-10.6) k/uL RBC (4.30-5.90) m/uL Hgb (13.0-17.5) gm/dL Hct (39.0-53.0) % MCHC (31.0-37.0) g/dL BUN (9-20) mg/dL Creatinine (0.66-1.25) mg/dL Glucose (74-99) mg/dL POC Glucose (mg/dL) 100 H 131 H 130 H (75-99) mg/dL Calcium (8.4-10.2) mg/dL 06/27/20 06/27/20 06/27/20 Range/Units 07:13 07:13 11:53 WBC 17.8 H (3.8-10.6) k/uL RBC 3.88 L (4.30-5.90) m/uL Hgb 10.1 L (13.0-17.5) gm/dL Hct 33.2 L (39.0-53.0) % MCHC 30.3 L (31.0-37.0) g/dL BUN 72 H (9-20) mg/dL Creatinine 2.71 H (0.66-1.25) mg/dL Glucose 125 H (74-99) mg/dL POC Glucose (mg/dL) 131 H (75-99) mg/dL Calcium 8.2 L (8.4-10.2) mg/dL Microbiology - Last 24 Hours (Table) 06/27/20 00:00 Stool Culture - Preliminary Stool 06/24/20 19:03 Urine Culture - Final Urine,Voided Assessment and Plan (1) Diarrhea Narrative/Plan: This is a gentleman with acute onset of diarrhea for the last 1 week's duration. Patient with bowel movements anywhere from 5-7 a day that are loose to watery in consistency with no blood or mucus in the stool. Stool studies have been collected, C. difficile cytotoxin is negative. Stool cultures are currently pending. Most likely we are dealing with an infectious etiology, possibly viral or bacterial in nature. Diarrhea has improved, patient has had no further diarrhea since yesterday morning. He has Imodium ordered as needed. His last colonoscopy was approximately 5 years ago through the [place] which he reports as normal. Discussed with the patient if he is not being discharged could schedule him for a inpatient colonoscopy for further evaluation of chronic diarrhea. The patient declines at this time and states he would rather follow up outpatient. He is asking that we discontinue the Imodium as it does not work as well for him and add Pepto-Bismol. Current Visit: Yes Status: Acute Code(s): R19.7 - DIARRHEA, UNSPECIFIED SNOMED Code(s): 65848577 (2) Abdominal pain Narrative/Plan: Likely related to viral gastroenteritis/ infectious colitis Current Visit: Yes Status: Acute Code(s): R10.9 - UNSPECIFIED ABDOMINAL PAIN SNOMED Code(s): 15031578 (3) Diabetes mellitus Current Visit: Yes Status: Acute Code(s): E11.9 - TYPE 2 DIABETES MELLITUS WITHOUT COMPLICATIONS SNOMED Code(s): 48911489 (4) Acute kidney injury Current Visit: Yes Status: Acute Code(s): N17.9 - ACUTE KIDNEY FAILURE, UNSPECIFIED SNOMED Code(s): 09130745 Plan: 1. Supportive care 2. Await rest of stool cultures 3. Imodium discontinued and Pepto-Bismol added. Please hold Pepto-Bismol if patient becomes constipated 4. Advance diet as tolerated 5. Colonoscopy offered to patient for further evaluation of diarrhea, patient declines at this time as he does not feel he is up to it. Was discussed with the patient we can consider outpatient colonoscopy if diarrhea persists. 6. Abdominal ultrasound reviewed, no acute findings. 6. We will continue to follow closely The impression and plan of care has been dictated as directed. Dr. Itzel Corona I performed a history and examination of this patient, discussed the same with the dictator. I agree with the dictator's note ,documented as a scribe. Any additional findings or plans will be noted.
[2020-06-27] MEDS: ATORVASTATIN 10 MG TAB PO SCH (12:27)
[2020-06-27] MEDS: PANTOPRAZOLE 40 MG TABLET PO SCH (12:27)
--- NOTE | 2020-06-27 13:26 | CDI ---
Documentation Clarification Form Date: 06/27/2020 12:55:43 PM From: Lucina Beverly RN, CCDS Admit Date: 06/24/2020 08:52:00 PM Patient Name: Elio Florence Visit Number: [id number] Discharge Date: ATTENTION: The Clinical Documentation Specialists (CDI) and [facility] Coding Staff appreciate your assistance in clarifying documentation. Please respond to the clarification below the line at the bottom and electronically sign. The CDI & [facility] Coding staff will review the response and follow-up if needed. Please note: Queries are made part of the Legal Health Record. If you have any questions, please contact the author of this message via ITS. Dr. Bre Domingo CKD is documented in the progress note on 06/27. Please provide further specificity of stage of chronic kidney disease. History/Risk Factors: Heart Failure, Diabetes Mellitus, Hyperlipidemia, Hypertension 06/27 Nephrology progress note: Chronic kidney disease, with previous creatinine around 1.2 in May of 2020. Clinical Indicators: 84-year-old male admit to hospital on 06/24 with abdominal pain, shortness of breath and did get one dose of Lasix 40 mg iv on initial admission. 06/24 BUN 40 CR 2.65, GFR 21 06/25 BUN 50 CR 2.42, GFR 24 06/26 BUN 54 CR 2.57, GFR 22 06/27 BUN 72 CR 2.71, GFR 20 Treatment: .9 % NS @50 mls/hr iv 06/24-06/25 No NSAIDs, avoid significant hypotension In order to capture the severity of condition, please clarify the stage of the CKD, if known: CKD Stage 1 (GFR > 90) CKD Stage 2 (GFR 60-89) CKD Stage 3 (GFR 30-59) CKD Stage 4 (GFR 15-29) CKD Stage 5 (GFR <15) Other, please specify Unable to determine (Last Revision: October 2019) stage 3 MTDD
--- NOTE | 2020-06-27 14:01 | XR ---
EXAMINATION TYPE: XR chest 2V DATE OF EXAM: 06/27/2020 COMPARISON: 06/25/2020 INDICATION: Dyspnea TECHNIQUE: Single frontal view of the chest is obtained. FINDINGS: The heart size is mildly prominent. The pulmonary vasculature is normal. Impression chronic elevation of the right diaphragm. Pacemaker overlies left chest. No focal consolid ations are evident. IMPRESSION: 1. No acute pulmonary process. 2. Mild cardiomegaly
[2020-06-27 16:34] LABS: Glucose,Whole Blood 113 mg/dL (75-99)
--- NOTE | 2020-06-27 16:39 | P.PN ---
Subjective Progress Note Date: 06/27/20 Patient was seen and examined. No acute events overnight. Patient reports 4 episodes of diarrhea today. Unable to tolerate oral intake due to his diarrhea. He complains of feeling winded but is able to speak in full sentences. He denies any chest pain or palpitations. No nausea or vomiting. No fever or chills. Lower extremity swelling greatly improved. Objective - Vital Signs Vital signs: Vital Signs Temp 97.7 F 06/27/20 08:00 Pulse 63 06/27/20 12:00 Resp 22 06/27/20 12:00 BP 122/58 06/27/20 12:00 Pulse Ox 100 06/27/20 12:00 Intake & Output 06/26/20 06/27/20 06/27/20 18:59 06:59 18:59 Intake Total 266 180 Output Total 400 Balance 266 -400 180 Weight 110.3 kg Intake: Intake, IV Titration 150 Amount Sodium Chloride 0.9% 1, 150 000 ml @ 50 mls/hr IV . Q20H [facility] Rx#:[id number] Oral 116 180 Output: Urine 400 Other: Voiding Method Bedside Commode Bedside Commode # Voids 1 # Bowel Movements 1 - Exam General: [non toxic], [no distress], [appears at stated age] Derm: [warm], [dry] Head: [atraumatic], [normocephalic], [symmetric] Eyes: [EOMI], [no lid lag], [anicteric sclera] Mouth: [no lip lesion], [mucus membranes moist] Cardiovascular: [S1S2 reg], [no murmur], [positive posterior tibial pulse bilateral], Lungs: [Decreased breath sounds bilateral], [no rhonchi, no rales] , [no accessory muscle use] Abdominal: [soft], [ nontender to palpation], [no guarding], [no appreciable organomegaly] Ext: [no gross muscle atrophy], [1+ pitting lower extremity edema], [no contractures] Neuro: [no focal neuro deficits] Psych: [Alert], [oriented], [appropriate affect] - Labs CBC & Chem 7: 06/27/20 07:13 06/27/20 07:13 Labs: Abnormal Lab Results - Last 24 Hours (Table) 06/26/20 06/26/20 06/27/20 Range/Units 16:39 20:57 06:33 WBC (3.8-10.6) k/uL RBC (4.30-5.90) m/uL Hgb (13.0-17.5) gm/dL Hct (39.0-53.0) % MCHC (31.0-37.0) g/dL BUN (9-20) mg/dL Creatinine (0.66-1.25) mg/dL Glucose (74-99) mg/dL POC Glucose (mg/dL) 100 H 131 H 130 H (75-99) mg/dL Calcium (8.4-10.2) mg/dL 06/27/20 06/27/20 06/27/20 Range/Units 07:13 07:13 11:53 WBC 17.8 H (3.8-10.6) k/uL RBC 3.88 L (4.30-5.90) m/uL Hgb 10.1 L (13.0-17.5) gm/dL Hct 33.2 L (39.0-53.0) % MCHC 30.3 L (31.0-37.0) g/dL BUN 72 H (9-20) mg/dL Creatinine 2.71 H (0.66-1.25) mg/dL Glucose 125 H (74-99) mg/dL POC Glucose (mg/dL) 131 H (75-99) mg/dL Calcium 8.2 L (8.4-10.2) mg/dL Microbiology - Last 24 Hours (Table) 06/27/20 00:00 Stool Culture - Preliminary Stool Assessment and Plan Assessment: Acute kidney injury likely secondary to diarrhea/ hypovolemia -Cr worsening from 2.65 on admission to 2.71 today -Hold hydrochlorothiazide -Hold sulfonylurea -Hold Mobic -Nephro recs: DC IVF, add Dobutamine and IV diuresis -No hydronephrosis on abdominal ultrasound -Daily BMP Leukocytosis -Unknown etiology -No clear signs of infection -Repeat CBC tomorrow morning DM 2 now with prolonged hypoglycemia - Start SSI, tradjenta - Hold glyburide - Await A1C - Follow BS Systolic CHF with EF 35-40% - Cardio recs appreciated - Not on ACEI and will not start due to JANET - COREG - Hold off on Lasix, Neg HJR, No fluid on CXR, BNP could be elevated due to JANET, ? component of venous insufficiency leading to lower extremity edema Chronic Diarrhea - C diff, fecal lactoferrin/calprotectin - negative - Stool culture pending - GI recs: Bismuth trial BPH - Doxyzosyn - Proscar HTN - Coreg HLD - Lovastatin and fish oil Refractory hypoglycemia secondary to sulfonylurea use and poor oral intake, symptomatic, resolved DVT prophylaxis: Heparin Discussed with: Patient, nursing Anticipated discharge: 1-[address]: home with home health A total of 35 minutes was spent on the care of this complex patient more than 50% of the time was spent in counseling and care coordination.
[2020-06-27] MEDS: BISMUTH SUBSALICYLATE 4,192 MG/240 ML BOTTLE PO SCH ×2 (16:40→21:52)
[2020-06-27] MEDS: DOBUTamine DRIP 500 MG in DEXTROSE/WATER 1 250ML.BAG IV SCH (18:27)
[2020-06-27 20:34] LABS: Glucose,Whole Blood 130 mg/dL (75-99)
[2020-06-27] MEDS: DOXAZOSIN 4 MG TAB PO SCH (21:51)
[2020-06-28] MEDS: HEPARIN SODIUM,PORCINE 5,000 UNIT/ML 1 ML VIAL SQ SCH ×3 (00:25→16:28)
[2020-06-28 01:59] LABS: Glucose,Whole Blood 131 mg/dL (75-99)
[2020-06-28] MEDS ORDERED: ACETAMINOPHEN TAB 325 MG TAB PO PRN (04:57)
[2020-06-28 06:04] LABS: Glucose,Whole Blood 125 mg/dL (75-99)
[2020-06-28] MEDS: carvediloL 12.5 MG TAB PO SCH ×2 (06:58→16:28)
[2020-06-28] MEDS: PANTOPRAZOLE 40 MG TABLET PO SCH (06:58)
[2020-06-28] MEDS: BISMUTH SUBSALICYLATE 4,192 MG/240 ML BOTTLE PO SCH ×4 (06:58→21:36)
[2020-06-28] MEDS: INSULIN ASPART (NovoLOG) 100 UNIT/ML VIAL SQ SCH ×4 (07:23→21:35)
--- NOTE | 2020-06-28 08:22 | P.PN ---
Subjective Progress Note Date: 06/28/20 Principal diagnosis: This is a 84-year-old male with history of type 2 diabetes coronary artery disease with multiple stents cardiomyopathy ejection fraction 35%, with acute kidney injury and chronic kidney disease He was started on dopamine yesterday. Congestive failure very unwell very weak short of breath at rest on nasal cannula oxygen No chest pain no fever chills no cough or He continues to have leukocytosis. Also complains of aches and pains and muscle spasms. Complains of abdominal discomfort but difficult to explain details On dopamine his urine output is documented at 400 mL for the last 24 hours Objective - Vital Signs Vital signs: Vital Signs Temp 98.6 F 06/28/20 08:00 Pulse 61 06/28/20 08:00 Resp 20 06/28/20 08:00 BP 125/69 06/28/20 08:00 Pulse Ox 94 L 06/28/20 08:00 Intake & Output 06/27/20 06/28/20 06/28/20 18:59 06:59 18:59 Intake Total 420 Balance 420 Weight 110.3 kg Intake: Oral 420 Other: Voiding Method Bedside Commode # Voids 1 # Bowel Movements 1 On examination short of breath at rest on nasal cannula HEENT exam difficult to examine no JVP noted neck is supple no facial asymmetry Lungs are significant for diminished air entry bilaterally with occasional fine crackles at bases Heart sounds are unremarkable for any murmur rub gallop but distant heart sounds Abdomen somewhat distended mildly tender vaguely. Extremity exam was mild edema Neurologically awake alert oriented but profoundly weak difficult to sit him up even with help - Labs CBC & Chem 7: 06/27/20 07:13 06/27/20 07:13 Labs: Abnormal Lab Results - Last 24 Hours (Table) 06/27/20 06/27/20 06/27/20 Range/Units 11:53 16:34 20:22 POC Glucose (mg/dL) 131 H 113 H 130 H (75-99) mg/dL 06/28/20 06/28/20 Range/Units 01:54 06:02 POC Glucose (mg/dL) 131 H 125 H (75-99) mg/dL Microbiology - Last 24 Hours (Table) 06/27/20 00:00 Stool Culture - Preliminary Stool Assessment and Plan Assessment: Impression 1. Acute kidney injury likely cardiorenal syndrome. Congestive heart failure. On dopamine. Creatinine worsening, was 2.65, 2.42, 2.57, 2.71 this morning. Possibly the of acute interstitial nephritis and/or renal artery stenosis should be considered. He has mild pyuria, 34 WBCs with some clumps and RBCs of 5, urine protein is 1+. Urine culture has been negative 2. Chronic kidney disease, baseline creatinine was 1.2 as of 06/05/2020, GFR was 54 and hematocrit. Nephrosclerosis possible renovascular disease 3. Leukocytosis cause unclear 4. High cortisol level. Likely from stress does not look cushingoid 5. Obesity 6. Cardiomyopathy ejection fraction 35%, coronary artery disease Recommendation 1. Will give him Lasix 82 8 for 3 doses and see how he responds.. Check uric acid and total CK to rule out any rhabdomyolysis. If she does not respond to Lasix possibility of acute interstitial nephritis and renovascular disease will be considered and appropriately managed
[2020-06-28 08:39] LABS: Calcium 8.3 mg/dL (8.4-10.2); Potassium 3.7 mmol/L (3.5-5.1); Uric Acid 11.7 mg/dL (3.5-8.5)
[2020-06-28 08:42] LABS: Basophils % (A) 0 %; Eosinophils % (A) 0 %; HCT 33.1 % (39.0-53.0); HGB 10.1 gm/dL (13.0-17.5); Hypochromasia Marked; Lymphocytes # (A) 0.7 k/uL (1.0-4.8); Lymphocytes % (A) 5 %; MCH 26.1 pg (25.0-35.0); MCHC 30.5 g/dL (31.0-37.0); MCV 85.7 fL (80.0-100.0); Mean Platelet Volume 8.1; Monocytes # (A) 0.7 k/uL (0-1.0); Monocytes % (A) 5 %; Neutrophils % (A) 89 %; Platelet Count 228 k/uL (150-450); RBC 3.86 m/uL (4.30-5.90); RDW 13.6 % (11.5-15.5); WBC 13.5 k/uL (3.8-10.6)
[2020-06-28] MEDS: ASPIRIN 81 MG PO SCH (09:46)
[2020-06-28] MEDS: LINAGLIPTIN 5 MG TABLET PO SCH (09:47)
[2020-06-28] MEDS: FINASTERIDE 5 MG TAB PO SCH (09:47)
[2020-06-28 11:50] LABS: Glucose,Whole Blood 123 mg/dL (75-99)
--- NOTE | 2020-06-28 11:53 | PN ---
PROGRESS NOTE DATE OF SERVICE: 06/28/2020 Patient is an 84-year-old pleasant white male admitted to the hospital with diarrhea and acute kidney injury superimposed on chronic kidney disease. The patient continues to have 3-4 loose bowel movements daily. Stool studies were negative. He was started on Imodium and it did not help him. Hence, the medications were changed to Pepto- Bismol yesterday, which he is receiving 4 times daily. He still states he continues to have postprandial diarrhea. He had about 3 loose bowel movements already this morning. No bleeding. He still has some cramping lower abdominal pain. PHYSICAL EXAMINATION: GENERAL: Appears comfortable. VITAL SIGNS: Stable. Blood pressure 125/60, pulse rate 69, pulse rate 61, temperature 96. HEENT: Examination unremarkable. Conjunctivae are pink. Sclerae anicteric. Oral cavity no lesions. NECK: No JVD. No lymph node enlargement. CHEST: Clear to auscultation. HEART: Regular rate and rhythm. ABDOMEN: Soft. Mild diffuse tenderness noted. EXTREMITIES: No pedal edema. SKIN: No rashes. NEURO: He is alert and oriented x3. No focal deficits. LABS: From today WBC 17.8, hemoglobin 10.1, platelets 204. BUN is 72, creatinine 2.1. The rest of the labs are within normal limits. IMPRESSION: 1. Acute diarrhea for the last one week duration but has been having change in bowel habits for the last 6 weeks. He has been having postprandial diarrhea with bowel movements anywhere from 3-4 a day. Stool studies so far have been negative. No help with Imodium and recently has been started on Pepto-Bismol yesterday with not much help. Last colonoscopy was about 7 or 8 years ago. 2. Acute kidney injury superimposed on chronic kidney disease. Nephrology following the patient closely. 3. History of cardiomyopathy/congestive heart failure. RECOMMENDATIONS: 1. Continue with Pepto-Bismol before each meal and bedtime. 2. I had a lengthy discussion with the patient to consider a colonoscopy during this hospitalization. He wants to think about it. 3. Continue with regular diet. 4. We will follow with you closely. Thank you for this consultation. MMODL / IJN: [id number] /
[2020-06-28 12:31] LABS: Protein/Creatinine Ratio,Urine 0.074
[2020-06-28] MEDS: ATORVASTATIN 10 MG TAB PO SCH (13:16)
--- NOTE | 2020-06-28 13:48 | P.PN ---
Subjective HISTORY OF PRESENTING ILLNESS This is a pleasant 84-year-old male past medical history significant for coronary artery disease status post four-vessel bypass grafting in 2009, prior to bypass grafting he had 9 stents placed, ischemic cardiomyopathy status post AICD 2013, hypertension, dyslipidemia, diabetes mellitus and chronic systolic heart failure. He follows in the office with Dr. 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 He is seen and examined resting comfortably lying flat in bed in no acute distress. Overall he states he is feeling much better since admission. He has no w orsening shortness of breath, no chest pain, dizziness or palpitations. However he is complaining of his diarrhea starting again last night. GI is following. They started him on Imodium. Blood pressure 131/56 heart rate 63 afebrile maintaining oxygen saturation on nasal cannula. Laboratory data reviewed, WBC 17.8, hemoglobin 10.1, platelets 204, sodium 138, potassium 4.1, creatinine 2.71 and magnesium 2.1. Currently maintained on aspirin 81 mg daily, atorvastatin 10 mg daily, carvedilol 12.5 mg twice a day. 06/28/2020 He is seen and examined laying flat resting comfortably in bed in no acute distress. He is maintaining oxygen on room air currently. He states his breathing is improved and his diarrhea has subsided. nephrology has initiated a dobutamine infusion along with IV diuretics. Blood pressure 126/58 heart rate 62 afebrile maintaining oxygen saturation on room air. Laboratory data reviewed, WBC 13.5, hemoglobin 10.1, platelets 228, sodium 138, potassium 3.7 and creatinine 2.42. PHYSICAL EXAMINATION CONSTITUTIONAL: Mild respiratory distress with conversation. HEENT: Head is normocephalic. Pupils are equal, round. Sclerae anicteric. Mucous membranes of the mouth are moist. Positive JVD noted bilaterally. No carotid bruit. CHEST EXAMINATION: Diminished bilaterally with faint bibasilar crackles, no wheezes or rhonchi. No chest wall tenderness is noted on palpation or with deep breathing. HEART EXAMINATION: Regular rate and rhythm. S1, S2 heard. Systolic ejection murmur at the left sternal border, no gallops or rub. EXTREMITIES: 2+ peripheral pulses, 1+ bilateral lower extremity pitting edema and no calf tenderness. ASSESSMENT Acute on chronic systolic heart failure Hypoglycemia Acute kidney injury Leukocytosis Ischemic cardiomyopathy status post AICD Hypertension Dyslipidemia Diabetes mellitus PLAN Continue current medical regimen. Diuretic management per nephrology. Nurse Practitioner note has been reviewed, I agree with a documented findings and plan of care. Patient was seen and examined. Objective - Vital Signs Vital signs: Vital Signs Temp 98.6 F 06/28/20 08:00 Pulse 62 06/28/20 12:00 Resp 20 06/28/20 12:00 BP 126/58 06/28/20 12:00 Pulse Ox 98 06/28/20 12:00 Intake & Output 06/27/20 06/28/20 06/28/20 18:59 06:59 18:59 Intake Total 520 236 Balance 520 236 Weight 110.3 kg Intake: Intake, IV Titration 100 Amount Sodium Chloride 0.9% 1, 100 000 ml @ 50 mls/hr IV . Q20H [facility] Rx#:[id number] Oral 420 236 Other: Voiding Method Bedside Commode Toilet # Voids 1 2 # Bowel Movements 1 1 - Labs CBC & Chem 7: 06/28/20 07:03 06/28/20 07:03 Labs: Abnormal Lab Results - Last 24 Hours (Table) 06/27/20 06/27/20 06/28/20 Range/Units 16:34 20:22 01:54 WBC (3.8-10.6) k/uL RBC (4.30-5.90) m/uL Hgb (13.0-17.5) gm/dL Hct (39.0-53.0) % MCHC (31.0-37.0) g/dL Neutrophils # (1.3-7.7) k/uL Lymphocytes # (1.0-4.8) k/uL Chloride (98-107) mmol/L Carbon Dioxide (22-30) mmol/L BUN (9-20) mg/dL Creatinine (0.66-1.25) mg/dL Glucose (74-99) mg/dL POC Glucose (mg/dL) 113 H 130 H 131 H (75-99) mg/dL Uric Acid (3.5-8.5) mg/dL Calcium (8.4-10.2) mg/dL 06/28/20 06/28/20 06/28/20 Range/Units 06:02 07:03 07:03 WBC 13.5 H (3.8-10.6) k/uL RBC 3.86 L (4.30-5.90) m/uL Hgb 10.1 L (13.0-17.5) gm/dL Hct 33.1 L (39.0-53.0) % MCHC 30.5 L (31.0-37.0) g/dL Neutrophils # 12.0 H (1.3-7.7) k/uL Lymphocytes # 0.7 L (1.0-4.8) k/uL Chloride 108 H (98-107) mmol/L Carbon Dioxide 19 L (22-30) mmol/L BUN 85 H (9-20) mg/dL Creatinine 2.42 H (0.66-1.25) mg/dL Glucose 117 H (74-99) mg/dL POC Glucose (mg/dL) 125 H (75-99) mg/dL Uric Acid 11.7 H (3.5-8.5) mg/dL Calcium 8.3 L (8.4-10.2) mg/dL 06/28/20 Range/Units 11:48 WBC (3.8-10.6) k/uL RBC (4.30-5.90) m/uL Hgb (13.0-17.5) gm/dL Hct (39.0-53.0) % MCHC (31.0-37.0) g/dL Neutrophils # (1.3-7.7) k/uL Lymphocytes # (1.0-4.8) k/uL Chloride (98-107) mmol/L Carbon Dioxide (22-30) mmol/L BUN (9-20) mg/dL Creatinine (0.66-1.25) mg/dL Glucose (74-99) mg/dL POC Glucose (mg/dL) 123 H (75-99) mg/dL Uric Acid (3.5-8.5) mg/dL Calcium (8.4-10.2) mg/dL Microbiology - Last 24 Hours (Table) 06/27/20 00:00 Stool Culture - Preliminary Stool
--- NOTE | 2020-06-28 14:25 | P.PN ---
Subjective Progress Note Date: 06/28/20 Patient was seen and examined. No acute events overnight. Patient reports 2 episodes of diarrhea today. Unable to tolerate oral intake due to his diarrhea, agreeable to take Ensure shakes. He continues to feel winded but is able to speak in full sentences. He denies any chest pain or palpitations. No nausea or vomiting. No fever or chills. Lower extremity swelling greatly improved. Objective - Vital Signs Vital signs: Vital Signs Temp 98.6 F 06/28/20 08:00 Pulse 62 06/28/20 12:00 Resp 20 06/28/20 12:00 BP 126/58 06/28/20 12:00 Pulse Ox 98 06/28/20 12:00 Intake & Output 06/27/20 06/28/20 06/28/20 18:59 06:59 18:59 Intake Total 520 236 Balance 520 236 Weight 110.3 kg Intake: Intake, IV Titration 100 Amount Sodium Chloride 0.9% 1, 100 000 ml @ 50 mls/hr IV . Q20H [facility] Rx#:[id number] Oral 420 236 Other: Voiding Method Bedside Commode Toilet # Voids 1 2 # Bowel Movements 1 1 - Exam General: [non toxic], [no distress], [appears at stated age] Derm: [warm], [dry] Head: [atraumatic], [normocephalic], [symmetric] Eyes: [EOMI], [no lid lag], [anicteric sclera] Mouth: [no lip lesion], [mucus membranes moist] Cardiovascular: [S1S2 reg], [no murmur], [positive posterior tibial pulse bilateral], Lungs: [Decreased breath sounds bilateral], [no rhonchi, no rales] , [no accessory muscle use] Abdominal: [soft], [ nontender to palpation], [no guarding], [no appreciable organomegaly] Ext: [no gross muscle atrophy], [1+ pitting lower extremity edema], [no contractures] Neuro: [no focal neuro deficits] Psych: [Alert], [oriented], [appropriate affect] - Labs CBC & Chem 7: 06/28/20 07:03 06/28/20 07:03 Labs: Abnormal Lab Results - Last 24 Hours (Table) 06/27/20 06/27/20 06/28/20 Range/Units 16:34 20:22 01:54 WBC (3.8-10.6) k/uL RBC (4.30-5.90) m/uL Hgb (13.0-17.5) gm/dL Hct (39.0-53.0) % MCHC (31.0-37.0) g/dL Neutrophils # (1.3-7.7) k/uL Lymphocytes # (1.0-4.8) k/uL Chloride (98-107) mmol/L Carbon Dioxide (22-30) mmol/L BUN (9-20) mg/dL Creatinine (0.66-1.25) mg/dL Glucose (74-99) mg/dL POC Glucose (mg/dL) 113 H 130 H 131 H (75-99) mg/dL Uric Acid (3.5-8.5) mg/dL Calcium (8.4-10.2) mg/dL 06/28/20 06/28/20 06/28/20 Range/Units 06:02 07:03 07:03 WBC 13.5 H (3.8-10.6) k/uL RBC 3.86 L (4.30-5.90) m/uL Hgb 10.1 L (13.0-17.5) gm/dL Hct 33.1 L (39.0-53.0) % MCHC 30.5 L (31.0-37.0) g/dL Neutrophils # 12.0 H (1.3-7.7) k/uL Lymphocytes # 0.7 L (1.0-4.8) k/uL Chloride 108 H (98-107) mmol/L Carbon Dioxide 19 L (22-30) mmol/L BUN 85 H (9-20) mg/dL Creatinine 2.42 H (0.66-1.25) mg/dL Glucose 117 H (74-99) mg/dL POC Glucose (mg/dL) 125 H (75-99) mg/dL Uric Acid 11.7 H (3.5-8.5) mg/dL Calcium 8.3 L (8.4-10.2) mg/dL 06/28/20 Range/Units 11:48 WBC (3.8-10.6) k/uL RBC (4.30-5.90) m/uL Hgb (13.0-17.5) gm/dL Hct (39.0-53.0) % MCHC (31.0-37.0) g/dL Neutrophils # (1.3-7.7) k/uL Lymphocytes # (1.0-4.8) k/uL Chloride (98-107) mmol/L Carbon Dioxide (22-30) mmol/L BUN (9-20) mg/dL Creatinine (0.66-1.25) mg/dL Glucose (74-99) mg/dL POC Glucose (mg/dL) 123 H (75-99) mg/dL Uric Acid (3.5-8.5) mg/dL Calcium (8.4-10.2) mg/dL Assessment and Plan Assessment: Acute kidney injury likely secondary to diarrhea/ hypovolemia -Cr improving from 2.71 to 2.42 -Hold hydrochlorothiazide -Hold sulfonylurea -Hold Mobic -Nephro recs: Dobutamine and Lasix 80 mg IV TID for 3 doses -No hydronephrosis on abdominal ultrasound -Daily BMP Chronic Diarrhea - C diff, fecal lactoferrin/calprotectin - negative - Stool culture pending - GI recs: Bismuth trial - Discussed with patient this if his diarrhea is not improved by tomorrow, he may benefit from Colonoscopy Leukocytosis, improving -Unknown etiology -No clear signs of infection -Repeat CBC tomorrow morning DM 2 now with prolonged hypoglycemia - Start SSI, tradjenta - Hold glyburide - Await A1C - Follow BS Systolic CHF with EF 35-40% - Cardio recs appreciated - Not on ACEI and will not start due to JANET - COREG, Lasix IV 80 mg for 3 doses - Neg HJR, No fluid on CXR, BNP could be elevated due to JANET, ? component of venous insufficiency leading to lower extremity edema BPH - Doxyzosyn - Proscar HTN - Coreg HLD - Lovastatin and fish oil Refractory hypoglycemia secondary to sulfonylurea use and poor oral intake, symptomatic, resolved DVT prophylaxis: Heparin Discussed with: Patient, nursing Anticipated discharge: 1-[address]: home with home health A total of 35 minutes was spent on the care of this complex patient more than 50% of the time was spent in counseling and care coordination.
[2020-06-28] MEDS: FUROSEMIDE 10 MG/ML 10 ML VIAL IV SCH (16:27)
[2020-06-28 16:57] LABS: Glucose,Whole Blood 155 mg/dL (75-99)
[2020-06-28] MEDS: DOBUTamine DRIP 500 MG in DEXTROSE/WATER 1 250ML.BAG IV SCH ×2 (17:55→18:28)
[2020-06-28 19:54] LABS: Glucose,Whole Blood 133 mg/dL (75-99)
[2020-06-28] MEDS: DOXAZOSIN 4 MG TAB PO SCH (21:35)
[2020-06-29] MEDS: FUROSEMIDE 10 MG/ML 10 ML VIAL IV SCH ×4 (00:19→23:12)
[2020-06-29] MEDS: HEPARIN SODIUM,PORCINE 5,000 UNIT/ML 1 ML VIAL SQ SCH ×4 (00:19→23:12)
[2020-06-29 06:07] LABS: Glucose,Whole Blood 123 mg/dL (75-99)
[2020-06-29] MEDS: INSULIN ASPART (NovoLOG) 100 UNIT/ML VIAL SQ SCH ×4 (06:34→21:35)
[2020-06-29] MEDS: BISMUTH SUBSALICYLATE 4,192 MG/240 ML BOTTLE PO SCH ×4 (06:36→21:44)
[2020-06-29] MEDS: PANTOPRAZOLE 40 MG TABLET PO SCH (06:36)
[2020-06-29] MEDS: carvediloL 12.5 MG TAB PO SCH ×2 (06:36→17:33)
[2020-06-29 06:40] LABS: HCT 30.5 % (39.0-53.0); HGB 9.6 gm/dL (13.0-17.5); Hypochromasia Slight; MCH 26.2 pg (25.0-35.0); MCHC 31.5 g/dL (31.0-37.0); MCV 83.1 fL (80.0-100.0); Mean Platelet Volume 6.9; Platelet Count 271 k/uL (150-450); RBC 3.67 m/uL (4.30-5.90); RDW 13.4 % (11.5-15.5); WBC 14.5 k/uL (3.8-10.6)
[2020-06-29 06:50] LABS: Calcium 8.3 mg/dL (8.4-10.2); Potassium 3.2 mmol/L (3.5-5.1)
[2020-06-29] MEDS ORDERED: Potassium Replacement Protocol 1 EACH MISC MISCELLANE PRN ×2 (07:32→08:57)
[2020-06-29] MEDS: LINAGLIPTIN 5 MG TABLET PO SCH (10:07)
[2020-06-29] MEDS: FINASTERIDE 5 MG TAB PO SCH (10:07)
[2020-06-29] MEDS: POTASSIUM CHLORIDE ER 20 MEQ TAB.ER PO SCH ×3 (10:07→12:21)
[2020-06-29] MEDS: ASPIRIN 81 MG PO SCH (10:08)
--- NOTE | 2020-06-29 10:10 | P.PN ---
Subjective Progress Note Date: 07/09/20 Principal diagnosis: This is a 84-year-old male, followed up with acute kidney injury secondary to cardiorenal syndrome with cardiomyopathy and chronic kidney disease. He was admitted with shortness of breath, and abdominal pain He is known with with history of type 2 diabetes coronary artery disease with multiple stents cardiomyopathy ejection fraction 35%, He was started on dopamine day before yesterday. He feels much better this morning says his edema is less his shortness of breath is less and his abdominal pain is resolved. Does not have an appetite. His urine output is documented at 17 50 mL or the last 24 hours, this may be an improvement since the dopamine. His creatinine is improved as well from 2.42 to 2. 35 Objective - Vital Signs Vital signs: Vital Signs Temp 98.3 F 06/29/20 04:00 Pulse 63 06/29/20 04:00 Resp 19 06/29/20 04:00 BP 133/59 06/29/20 04:00 Pulse Ox 97 06/29/20 04:00 Intake & Output 06/28/20 06/29/20 06/29/20 18:59 06:59 18:59 Intake Total 656.69 Output Total 1750 450 Balance 656.69 -1750 -450 Intake: Intake, IV Titration 198.69 Amount DOBUTamine DRIP 500 mg In 198.69 Dextrose/Water 1 250ml. bag @ 2.5 MCG/KG/MIN 8. 273 mls/hr IV .Q24H [facility] Rx#:[id number] Oral 458 Output: Urine 1750 450 Other: Voiding Method Toilet # Voids 1 3 1 # Bowel Movements 3 On examination is awake alert oriented comfortable HEENT exam no JVP neck is supple no facial asymmetry Lungs are clear to auscultation with some end expiratory wheezing on both sides Good air entry bilaterally Heart sounds are unremarkable for any murmur rub gallop Abdomen soft nontender protuberant and obese Symptoms 1-2+ edema Neurologically awake alert oriented - Labs CBC & Chem 7: 06/29/20 06:13 06/29/20 06:13 Labs: Abnormal Lab Results - Last 24 Hours (Table) 06/28/20 06/28/20 06/28/20 Range/Units 11:48 16:55 19:52 WBC (3.8-10.6) k/uL RBC (4.30-5.90) m/uL Hgb (13.0-17.5) gm/dL Hct (39.0-53.0) % Potassium (3.5-5.1) mmol/L BUN (9-20) mg/dL Creatinine (0.66-1.25) mg/dL Glucose (74-99) mg/dL POC Glucose (mg/dL) 123 H 155 H 133 H (75-99) mg/dL Calcium (8.4-10.2) mg/dL 06/29/20 06/29/20 06/29/20 Range/Units 06:05 06:13 06:13 WBC 14.5 H (3.8-10.6) k/uL RBC 3.67 L (4.30-5.90) m/uL Hgb 9.6 L (13.0-17.5) gm/dL Hct 30.5 L (39.0-53.0) % Potassium 3.2 L (3.5-5.1) mmol/L BUN 91 H (9-20) mg/dL Creatinine 2.35 H (0.66-1.25) mg/dL Glucose 133 H (74-99) mg/dL POC Glucose (mg/dL) 123 H (75-99) mg/dL Calcium 8.3 L (8.4-10.2) mg/dL Assessment and Plan Assessment: Impression 1. Acute kidney injury likely cardiorenal syndrome. Congestive heart failure. On dopamine, subjectively better and seems to be responding, and additionally was given Lasix 80 mg every 8 for 3 doses yesterday. Creatinine worsening, was 2.65, 2.42, 2.57, 2.71, has been reversed now with creatinine improved to 2.4 and then 2.35 this morning. Possibly of acute interstitial nephritis and/or renal artery stenosis should be considered if creatinine does not continue to improve as he has mild pyuria, 34 WBCs with some clumps and RBCs of 5, urine protein is 1+. Urine culture has been negative. Urine protein to creatinine ratio is 0.074 2. Chronic kidney disease, baseline creatinine was 1.2 as of 06/05/2020, GFR was 54 Nephrosclerosis possible renovascular disease 3. Leukocytosis cause unclear 4. High cortisol level. Likely from stress does not look cushingoid 5. Obesity 6. Cardiomyopathy ejection fraction 35%, coronary artery disease 7. High uric acid 11.7 8. Hypokalemia secondary to diuretics Recommendation 1. Continue Lasix 80 daily 8 2. KCl, 20 mEq 3 doses orally 1 hour apart 2. Allopurinol 100 mg daily because of the very high uric acid, although recent Metanalysis shows no improvement in renal outcomes with allopurinol or Urolic.
[2020-06-29] MEDS ORDERED: PEG 3350-NA SULF,BICARB,CL/KCL 4,000 ML BOTTLE PO ONE ×2 (10:43→17:00)
--- NOTE | 2020-06-29 11:30 | PN ---
PROGRESS NOTE DATE OF SERVICE: June 29, 2020 Patient is an 84-year-old pleasant white male admitted to hospital with diarrhea for the last few weeks duration. He continues to have about 3-4 soft loose watery bowel movements daily. No help with Pepto-Bismol or with Imodium. He has cramping lower abdominal pain. Stool studies so far have been negative. He denies any nausea or vomiting. No rectal bleeding. PHYSICAL EXAMINATION: He appears comfortable. No apparent distress. Vital signs stable. Blood pressure is 133/86, pulse is 63, temperature 98.3. HEENT examination unremarkable. Conjunctivae pink. Sclerae anicteric. Oral cavity no lesions. NECK no JVD or lymph node enlargement. CHEST was clear to auscultation. HEART: Regular rate and rhythm. ABDOMEN: Soft. Bowel sounds are positive. There was mild tenderness in the left lower quadrant area. Rest of the abdomen was benign and was obese. EXTREMITIES no pedal edema. NEURO: He is alert and oriented x3. No focal deficits. LABS: From today WBC 14.5, hemoglobin 9.6, platelets normal. Basic metabolic panel showed a BUN of 91, creatinine 2.35. Stool studies were negative. Stool lactoferrin negative. Stool calprotectin negative. IMPRESSION: 1. Diarrhea for the last 2 weeks duration. Patient having bowel movements anywhere from 3-4 a day which are loose to watery in consistency. Stool studies so far have been negative. No help with Pepto-Bismol or Imodium. So far, the patient continues to have postprandial diarrhea almost on a daily basis. 2. Chronic kidney disease, being monitored closely. RECOMMENDATIONS: I had a lengthy discussion with the patient regarding workup of diarrhea. At this time, recommend a colonoscopy. The patient is agreeable to it. We will start him on a clear liquid diet today and schedule him for colonoscopy tomorrow. In the meantime, hold off on the Pepto-Bismol as well as Imodium today. Thank you for this consultation. MMODL / IJN: [id number] /
[2020-06-29 11:40] LABS: Glucose,Whole Blood 140 mg/dL (75-99)
[2020-06-29] MEDS: ATORVASTATIN 10 MG TAB PO SCH (12:20)
[2020-06-29] MEDS ORDERED: POTASSIUM CHLORIDE ER 20 MEQ TAB.ER PO ONE (12:30)
--- NOTE | 2020-06-29 12:41 | P.PN ---
Subjective HISTORY OF PRESENTING ILLNESS This is a pleasant 84-year-old male past medical history significant for coronary artery disease status post four-vessel bypass grafting in 2009, prior to bypass grafting he had 9 stents placed, ischemic cardiomyopathy status post AICD 2013, hypertension, dyslipidemia, diabetes mellitus and chronic systolic heart failure. He follows in the office with Dr. 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 He is seen and examined resting comfortably laying flat in bed in no acute distress. He states his diarrhea is improving but still has some. Nephrology would like 1 more day of dobutamine infusion. Blood pressure 133/59 heart rate of 63, afebrile maintaining oxygen saturation on room air. Laboratory data reviewed, WBC 14.5, hemoglobin 9.6, platelets 271, sodium 140, potassium 3.2, creatinine 2.35. 24-hour urine output 1750 mL, he continues to maintain negative fluid balance. Weight is not documented accurately. PHYSICAL EXAMINATION CONSTITUTIONAL: No acute distress. HEENT: Head is normocephalic. Pupils are equal, round. Sclerae anicteric. Mucous membranes of the mouth are moist. Positive JVD noted bilaterally. No carotid bruit. CHEST EXAMINATION: Diminished bilaterally with faint bibasilar crackles, no wheezes or rhonchi. No chest wall tenderness is noted on palpation or with deep breathing. HEART EXAMINATION: Regular rate and rhythm. S1, S2 heard. Systolic ejection murmur at the left sternal border, no gallops or rub. EXTREMITIES: 2+ peripheral pulses, 1+ bilateral lower extremity pitting edema and no calf tenderness. ASSESSMENT Acute on chronic systolic heart failure Hypoglycemia Acute kidney injury Leukocytosis Ischemic cardiomyopathy status post AICD Hypertension Dyslipidemia Diabetes mellitus PLAN Continue current medical regimen. Diuretic management per nephrology. Follow renal function and electrolytes in the morning. Nurse Practitioner note has been reviewed, I agree with a documented findings and plan of care. Patient was seen and examined. Objective - Vital Signs Vital signs: Vital Signs Temp 98.3 F 06/29/20 04:00 Pulse 63 06/29/20 04:00 Resp 19 06/29/20 04:00 BP 133/59 06/29/20 04:00 Pulse Ox 97 06/29/20 04:00 Intake & Output 06/28/20 06/29/20 06/29/20 18:59 06:59 18:59 Intake Total 656.69 Output Total 1750 450 Balance 656.69 -1750 -450 Intake: Intake, IV Titration 198.69 Amount DOBUTamine DRIP 500 mg In 198.69 Dextrose/Water 1 250ml. bag @ 2.5 MCG/KG/MIN 8. 273 mls/hr IV .Q24H [facility] Rx#:[id number] Oral 458 Output: Urine 1750 450 Other: Voiding Method Toilet # Voids 1 3 1 # Bowel Movements 3 - Labs CBC & Chem 7: 06/29/20 06:13 06/29/20 06:13 Labs: Abnormal Lab Results - Last 24 Hours (Table) 06/28/20 06/28/20 06/29/20 Range/Units 16:55 19:52 06:05 WBC (3.8-10.6) k/uL RBC (4.30-5.90) m/uL Hgb (13.0-17.5) gm/dL Hct (39.0-53.0) % Potassium (3.5-5.1) mmol/L BUN (9-20) mg/dL Creatinine (0.66-1.25) mg/dL Glucose (74-99) mg/dL POC Glucose (mg/dL) 155 H 133 H 123 H (75-99) mg/dL Calcium (8.4-10.2) mg/dL 06/29/20 06/29/20 06/29/20 Range/Units 06:13 06:13 11:39 WBC 14.5 H (3.8-10.6) k/uL RBC 3.67 L (4.30-5.90) m/uL Hgb 9.6 L (13.0-17.5) gm/dL Hct 30.5 L (39.0-53.0) % Potassium 3.2 L (3.5-5.1) mmol/L BUN 91 H (9-20) mg/dL Creatinine 2.35 H (0.66-1.25) mg/dL Glucose 133 H (74-99) mg/dL POC Glucose (mg/dL) 140 H (75-99) mg/dL Calcium 8.3 L (8.4-10.2) mg/dL
--- NOTE | 2020-06-29 16:05 | P.PN ---
Subjective Progress Note Date: 06/29/20 Patient was seen and examined. No acute events overnight. Patient reports no episodes of diarrhea today. Drinking Ensure shakes. States that his breathing has improved. He denies any chest pain or palpitations. No nausea or vomiting. No fever or chills. Lower extremity swelling greatly improved. Plans for colonoscopy tomorrow. Objective - Vital Signs Vital signs: Vital Signs Temp 98.1 F 06/29/20 08:00 Pulse 60 06/29/20 12:00 Resp 18 06/29/20 12:00 BP 136/73 06/29/20 12:00 Pulse Ox 95 06/29/20 12:00 Intake & Output 06/28/20 06/29/20 06/29/20 18:59 06:59 18:59 Intake Total 656.69 236 Output Total 1750 450 Balance 656.69 -1750 -214 Intake: Intake, IV Titration 198.69 Amount DOBUTamine DRIP 500 mg In 198.69 Dextrose/Water 1 250ml. bag @ 2.5 MCG/KG/MIN 8. 273 mls/hr IV .Q24H [facility] Rx#:[id number] Oral 458 236 Output: Urine 1750 450 Other: Voiding Method Toilet # Voids 1 3 1 # Bowel Movements 3 - Exam General: [non toxic], [no distress], [appears at stated age] Derm: [warm], [dry] Head: [atraumatic], [normocephalic], [symmetric] Eyes: [EOMI], [no lid lag], [anicteric sclera] Mouth: [no lip lesion], [mucus membranes moist] Cardiovascular: [S1S2 reg], [no murmur], [positive DP pulse bilateral], Lungs: [Decreased breath sounds bilateral], [no rhonchi, no rales] , [no accessory muscle use] Abdominal: [soft], [ nontender to palpation], [no guarding], [no appreciable organomegaly] Ext: [no gross muscle atrophy], [1+ pitting lower extremity edema], [no contractures] Neuro: [no focal neuro deficits] Psych: [Alert], [oriented], [appropriate affect] - Labs CBC & Chem 7: 06/29/20 06:13 06/29/20 06:13 Labs: Abnormal Lab Results - Last 24 Hours (Table) 06/28/20 06/28/20 06/29/20 Range/Units 16:55 19:52 06:05 WBC (3.8-10.6) k/uL RBC (4.30-5.90) m/uL Hgb (13.0-17.5) gm/dL Hct (39.0-53.0) % Potassium (3.5-5.1) mmol/L BUN (9-20) mg/dL Creatinine (0.66-1.25) mg/dL Glucose (74-99) mg/dL POC Glucose (mg/dL) 155 H 133 H 123 H (75-99) mg/dL Calcium (8.4-10.2) mg/dL 06/29/20 06/29/20 06/29/20 Range/Units 06:13 06:13 11:39 WBC 14.5 H (3.8-10.6) k/uL RBC 3.67 L (4.30-5.90) m/uL Hgb 9.6 L (13.0-17.5) gm/dL Hct 30.5 L (39.0-53.0) % Potassium 3.2 L (3.5-5.1) mmol/L BUN 91 H (9-20) mg/dL Creatinine 2.35 H (0.66-1.25) mg/dL Glucose 133 H (74-99) mg/dL POC Glucose (mg/dL) 140 H (75-99) mg/dL Calcium 8.3 L (8.4-10.2) mg/dL Assessment and Plan Assessment: Acute kidney injury likely secondary to cardiorenal -Cr improving from 2.71 to 2.42 to 2.35 -Hold hydrochlorothiazide -Hold sulfonylurea -Hold Mobic -Nephro recs: Dobutamine and continue Lasix 80 mg IV TID -No hydronephrosis on abdominal ultrasound -Daily BMP Hypokalemia -Potassium 3.2 to be replaced via protocol Chronic Diarrhea - C diff, fecal lactoferrin/calprotectin - negative - Stool culture pending - GI recs: Bismuth trial - Plans for colonoscopy tomorrow Leukocytosis, improving -Unknown etiology -No clear signs of infection -Repeat CBC tomorrow morning DM 2 now with prolonged hypoglycemia - Start SSI, tradjenta - Hold glyburide - Await A1C - Follow BS Systolic CHF with EF 35-40% - Cardio recs appreciated - Not on ACEI and will not start due to JANET - COREG, Lasix IV - Neg HJR, No fluid on CXR, BNP could be elevated due to JANET, ? component of venous insufficiency leading to lower extremity edema BPH - Doxyzosyn - Proscar HTN - Coreg HLD - Lovastatin and fish oil Refractory hypoglycemia secondary to sulfonylurea use and poor oral intake, symptomatic, resolved Discussed with nephrology, continue Lasix IV and dobutamine drip. Creatinine slightly improving. Plans for colonoscopy tomorrow. Prep tonight. He is pending clinical improvement. Likely DC in 1-2 days.
[2020-06-29 16:48] LABS: Glucose,Whole Blood 135 mg/dL (75-99)
[2020-06-29 20:05] LABS: Glucose,Whole Blood 129 mg/dL (75-99)
[2020-06-29] MEDS: DOXAZOSIN 4 MG TAB PO SCH (21:43)
[2020-06-29] MEDS: DOBUTamine DRIP 500 MG in DEXTROSE/WATER 1 250ML.BAG IV SCH (23:21)
[2020-06-30 06:08] LABS: Glucose,Whole Blood 150 mg/dL (75-99)
[2020-06-30] MEDS: BISMUTH SUBSALICYLATE 4,192 MG/240 ML BOTTLE PO SCH ×4 (06:12→17:36)
[2020-06-30] MEDS: INSULIN ASPART (NovoLOG) 100 UNIT/ML VIAL SQ SCH ×4 (06:13→21:20)
[2020-06-30] MEDS: carvediloL 12.5 MG TAB PO SCH ×2 (06:44→17:33)
[2020-06-30] MEDS: PANTOPRAZOLE 40 MG TABLET PO SCH (06:44)
[2020-06-30] MEDS ORDERED: PROPOFOL 10 MG/ML 20 ML VIAL IV ONE (07:27)
[2020-06-30] MEDS ORDERED: LACTATED RINGERS 1,000 ML IV ONE ×2 (07:46)
--- NOTE | 2020-06-30 08:21 | P.PCN ---
Date of Procedure: 06/30/20 Description of Procedure: BRIEF HISTORY: Patient is a 84-year-old male currently hospitalized with an colonoscopy for evaluation of diarrhea. Patient has been having 3-4 loose watery bowel movements daily. No improvement with Pepto-Bismol or Imodium therapy. He has associated cramping or abdominal pain. Stool studies have been negative. No nausea or vomiting. No blood per rectum. PROCEDURE PERFORMED: Colonoscopy with biopsy. PREOPERATIVE DIAGNOSIS: Altered bowel function, diarrhea. ESTIMATED BLOOD LOSS: Minimal. IV sedation per Anesthesia. PROCEDURE: After informed consent was obtained, the patient, was brought into the endoscopy unit. IV sedation was administered by Anesthesia under continuous monitoring. Digital rectal examination was normal. Initially the Olympus CF-190 flexible video colonoscope was then inserted in the rectum, gradually advanced into the cecum without any difficulty. Careful examination was performed as the scope was gradually being withdrawn. Ileocecal valve and the appendiceal orifice were visualized and appeared normal. Prep was poor with a large amount of liquid and semisolid stool throughout the entire colon. Mucosa of the cecum, ascending colon, transverse colon, descending colon, sigmoid colon, and rectum which was visualized and appeared normal, however complete visualization of the mucosa was prohibited by poor prep. Biopsies were taken of the right last colon in the setting of altered bowel function. Multiple small and large mouth diverticula in the left colon. Retroflexion was performed in the rectum and no lesions were seen. The patient tolerated the procedure well. IMPRESSION: Moderate left colonic diverticulosis. Random biopsies taken of the right last colon in the setting of altered bowel function. Normal-appearing colon from rectum to cecum, however complete visualization prohibited by poor prep. RECOMMENDATIONS: Findings of this examination were discussed with the patient area to resume diet. Okay to resume medications. Await pathology from biopsies. Okay to resume diet. Okay to continue antidiarrheals as needed.
[2020-06-30 09:37] LABS: Glucose,Whole Blood 151 mg/dL (75-99)
[2020-06-30] MEDS: allopurinoL 100 MG TAB PO SCH (09:42)
[2020-06-30] MEDS: FINASTERIDE 5 MG TAB PO SCH (09:42)
[2020-06-30] MEDS: HEPARIN SODIUM,PORCINE 5,000 UNIT/ML 1 ML VIAL SQ SCH ×2 (09:42→16:34)
[2020-06-30] MEDS: ASPIRIN 81 MG PO SCH (09:42)
[2020-06-30] MEDS: LINAGLIPTIN 5 MG TABLET PO SCH (09:42)
[2020-06-30] MEDS: FUROSEMIDE 10 MG/ML 10 ML VIAL IV SCH ×2 (09:42→21:16)
--- NOTE | 2020-06-30 10:07 | P.PN ---
Subjective Patient was seen in follow-up for acute kidney injury and chronic kidney disease. Creatinine 2.35 as of yesterday. Currently maintained on dobutamine and IV Lasix 80 mg 3 times daily. Good urine output. Does not have a Nascimento catheter. No vomiting or diarrhea. Just returned from colonoscopy. Vital signs are stable. General: The patient appeared well nourished and normally developed. HEENT: Head exam is unremarkable. Neck is without jugular venous distension. LUNGS: Breath sounds decreased. HEART: Rate and Rhythm are regular. ABDOMEN: Soft, nontender. EXTREMITITES: Trace edema. Objective - Vital Signs Vital signs: Vital Signs Temp 97.9 F 06/30/20 09:36 Pulse 98 06/30/20 09:36 Resp 20 06/30/20 09:36 BP 144/63 06/30/20 09:36 Pulse Ox 97 06/30/20 09:00 Intake & Output 06/29/20 06/30/20 06/30/20 18:59 06:59 18:59 Intake Total 236 238.952 50 Output Total 1650 1140 Balance -1414 -901.048 50 Weight 104.4 kg Intake: IV 50 Intake, IV Titration 238.952 Amount DOBUTamine DRIP 500 mg In 238.952 Dextrose/Water 1 250ml. bag @ 2.5 MCG/KG/MIN 8. 273 mls/hr IV .[facility]H [facility] Rx#:[id number] Oral 236 Output: Urine 1650 740 Stool 400 Other: Voiding Method Toilet # Voids 1 3 1 # Bowel Movements 1 2 - Labs CBC & Chem 7: 06/29/20 06:13 06/29/20 06:13 Labs: Abnormal Lab Results - Last 24 Hours (Table) 06/29/20 06/29/20 06/29/20 Range/Units 11:39 16:46 20:04 POC Glucose (mg/dL) 140 H 135 H 129 H (75-99) mg/dL 06/30/20 06/30/20 Range/Units 06:07 09:34 POC Glucose (mg/dL) 150 H 151 H (75-99) mg/dL Assessment and Plan Plan: Assessment: 1. Acute kidney injury secondary to ATN secondary to cardiorenal syndrome. Creatinine 2.35 as of yesterday. UPC 0.07. 2. Chronic kidney disease stage III with baseline creatinine in the range of 1- 1.2. Etiology is nephrosclerosis. 3. Acute on chronic systolic CHF. 4. Volume overload. 5. Hypokalemia secondary to diuresis. 6. Diabetes mellitus. 7. Anemia of chronic kidney disease. Rule out iron deficiency. Plan: Maintain dobutamine drip and IV Lasix for now. Repeat chest x-ray tomorrow. Low-salt diet and 1500 mL fluid restriction. Follow-up morning labs. Strict I's and O's. Check iron studies.
--- NOTE | 2020-06-30 10:40 | XR ---
EXAMINATION TYPE: XR chest 1V DATE OF EXAM: 06/30/2020 COMPARISON: 06/27/2020 HISTORY: 84 year-old male shortness of breath TECHNIQUE: Single frontal view of the chest is obtained. FINDINGS: Left inferior chest wall AICD generator with right atrial, right ventricular, and coronary sinus lead s. Heart upper limits of normal in size. Atherosclerotic arch calcifications. No consolidation or ple ural effusion. IMPRESSION: Similar borderline heart size. No acute process seen.
[2020-06-30 11:39] LABS: Calcium 8.9 mg/dL (8.4-10.2); Potassium 3.3 mmol/L (3.5-5.1)
[2020-06-30 11:53] LABS: Glucose,Whole Blood 150 mg/dL (75-99)
[2020-06-30] MEDS: ATORVASTATIN 10 MG TAB PO SCH (12:37)
[2020-06-30] MEDS: POTASSIUM CHLORIDE ER 20 MEQ TAB.ER PO SCH ×3 (12:38→17:33)
--- NOTE | 2020-06-30 13:13 | P.PN ---
Subjective Progress Note Date: 06/30/20 Patient was seen and examined. No acute events overnight. Patient reports significant improvement in his breathing and lower extremity swelling. He underwent colonoscopy which was essentially unremarkable today. He denies any chest pain, shortness of breath or palpitations. No nausea or vomiting. No fever or chills. Would like to go home soon. Objective - Vital Signs Vital signs: Vital Signs Temp 97.9 F 06/30/20 09:36 Pulse 65 06/30/20 11:10 Resp 16 06/30/20 11:10 BP 141/61 06/30/20 11:10 Pulse Ox 98 06/30/20 11:10 Intake & Output 06/29/20 06/30/20 06/30/20 18:59 06:59 18:59 Intake Total 236 238.952 50 Output Total 1650 1140 600 Balance -1414 -901.048 -550 Weight 104.4 kg Intake: IV 50 Intake, IV Titration 238.952 Amount DOBUTamine DRIP 500 mg In 238.952 Dextrose/Water 1 250ml. bag @ 2.5 MCG/KG/MIN 8. 273 mls/hr IV .Q24H [facility] Rx#:[id number] Oral 236 Output: Urine 1650 740 600 Stool 400 Other: Voiding Method Toilet Toilet # Voids 1 3 1 # Bowel Movements 1 2 - Exam General: [non toxic], [no distress], [appears at stated age] Derm: [warm], [dry] Head: [atraumatic], [normocephalic], [symmetric] Eyes: [EOMI], [no lid lag], [anicteric sclera] Mouth: [no lip lesion], [mucus membranes moist] Cardiovascular: [S1S2 reg], [no murmur], [positive DP pulse bilateral], Lungs: [Decreased breath sounds bilateral], [no rhonchi, no rales] , [no accessory muscle use] Abdominal: [soft], [ nontender to palpation], [no guarding], [no appreciable organomegaly] Ext: [no gross muscle atrophy], [1+ pitting lower extremity edema], [no c ontractures] Neuro: [no focal neuro deficits] Psych: [Alert], [oriented], [appropriate affect] - Labs CBC & Chem 7: 06/29/20 06:13 06/30/20 10:50 Labs: Abnormal Lab Results - Last 24 Hours (Table) 06/29/20 06/29/20 06/30/20 Range/Units 16:46 20:04 06:07 Potassium (3.5-5.1) mmol/L Carbon Dioxide (22-30) mmol/L BUN (9-20) mg/dL Creatinine (0.66-1.25) mg/dL Glucose (74-99) mg/dL POC Glucose (mg/dL) 135 H 129 H 150 H (75-99) mg/dL 06/30/20 06/30/20 06/30/20 Range/Units 09:34 10:50 11:51 Potassium 3.3 L (3.5-5.1) mmol/L Carbon Dioxide 31 H (22-30) mmol/L BUN 87 H (9-20) mg/dL Creatinine 2.02 H (0.66-1.25) mg/dL Glucose 155 H (74-99) mg/dL POC Glucose (mg/dL) 151 H 150 H (75-99) mg/dL Microbiology - Last 24 Hours (Table) 06/27/20 00:00 Stool Culture - Final Stool Assessment and Plan Assessment: Acute kidney injury likely secondary to cardiorenal -Cr improving from 2.71 to 2.42 to 2.35 to 2.02 -Hold hydrochlorothiazide -Hold sulfonylurea -Hold Mobic -Nephro recs: Dobutamine and continue Lasix 80 mg IV TID -No hydronephrosis on abdominal ultrasound -Daily BMP Hypokalemia -Potassium 3.3 to be replaced via protocol Chronic Diarrhea - C diff, fecal lactoferrin/calprotectin - negative - Stool culture negative - GI recs: Bismuth - C-scope unrevealing, follow up biopsies in the outpatient setting with GI Leukocytosis, improving -Unknown etiology -No clear signs of infection -Repeat CBC tomorrow morning DM 2 now with prolonged hypoglycemia - Start SSI, tradjenta - Hold glyburide - Await A1C - Follow BS Systolic CHF with EF 35-40% - Cardio recs appreciated - Not on ACEI and will not start due to JANET - COREG, Lasix IV BPH - Doxyzosyn - Proscar HTN - Coreg HLD - Lovastatin and fish oil Refractory hypoglycemia secondary to sulfonylurea use and poor oral intake, symptomatic, resolved Discussed with nephrology, continue Lasix IV and dobutamine drip. Creatinine improving. He is pending clinical improvement. Likely DC in 1-2 days.
--- NOTE | 2020-06-30 15:01 | P.PN ---
Subjective Progress Note Date: 06/30/20 's is a pleasant 84-year-old gentleman with past medical history significant for coronary artery disease and prior bypass surgery in 2009 prior to that patient also had stents placed, ischemic cardio myopathy with prior AICD, hypertension, hyperlipidemia, diabetes, chronic systolic congestive heart failure. Patient initially presented to the hospital with hypoglycemia, being currently treated for congestive cardiac failure. He is on a dobutamine drip along with IV diuretics, currently being managed by nephrology. BloodI pressure 140/60 with a heart rate in the 60s, 90% on room air. Sodium 143, potassium 3.3, BUN 87, creatinine 2.0. Objective - Vital Signs Vital signs: Vital Signs Temp 97.9 F 06/30/20 09:36 Pulse 65 06/30/20 11:10 Resp 16 06/30/20 12:00 BP 141/61 06/30/20 11:10 Pulse Ox 98 06/30/20 11:10 Intake & Output 06/29/20 06/30/20 06/30/20 18:59 06:59 18:59 Intake Total 236 238.952 290 Output Total 1650 1140 600 Balance -1414 -901.048 -310 Weight 104.4 kg Intake: IV 50 Intake, IV Titration 238.952 Amount DOBUTamine DRIP 500 mg In 238.952 Dextrose/Water 1 250ml. bag @ 2.5 MCG/KG/MIN 8. 273 mls/hr IV .Q24H [facility] Rx#:[id number] Oral 236 240 Output: Urine 1650 740 600 Stool 400 Other: Voiding Method Toilet Toilet # Voids 1 3 1 # Bowel Movements 1 2 - Exam CONSTITUTIONAL: No acute distress. HEENT: Head is normocephalic. Pupils are equal, round. Sclerae anicteric. Mucous membranes of the mouth are moist. Positive JVD noted bilaterally. No carotid bruit. CHEST EXAMINATION: Diminished bilaterally with faint bibasilar crackles, no wheezes or rhonchi. No chest wall tenderness is noted on palpation or with deep breathing. HEART EXAMINATION: Regular rate and rhythm. S1, S2 heard. Systolic ejection murmur at the left sternal border, no gallops or rub. EXTREMITIES: 2+ peripheral pulses, 1+ bilateral lower extremity pitting edema and no calf tenderness. - Labs CBC & Chem 7: 06/29/20 06:13 06/30/20 10:50 Labs: Abnormal Lab Results - Last 24 Hours (Table) 06/29/20 06/29/20 06/30/20 Range/Units 16:46 20:04 06:07 Potassium (3.5-5.1) mmol/L Carbon Dioxide (22-30) mmol/L BUN (9-20) mg/dL Creatinine (0.66-1.25) mg/dL Glucose (74-99) mg/dL POC Glucose (mg/dL) 135 H 129 H 150 H (75-99) mg/dL 06/30/20 06/30/20 06/30/20 Range/Units 09:34 10:50 11:51 Potassium 3.3 L (3.5-5.1) mmol/L Carbon Dioxide 31 H (22-30) mmol/L BUN 87 H (9-20) mg/dL Creatinine 2.02 H (0.66-1.25) mg/dL Glucose 155 H (74-99) mg/dL POC Glucose (mg/dL) 151 H 150 H (75-99) mg/dL Microbiology - Last 24 Hours (Table) 06/27/20 00:00 Stool Culture - Final Stool Assessment and Plan Plan: ASSESSMENT and plan #1 Acute on chronic systolic heart failure #2 Hypoglycemia #3 Acute kidney injury #4 Leukocytosis #5 Ischemic cardiomyopathy status post AICD #6 Hypertension #7 Dyslipidemia #8 Diabetes #9 coronary artery disease with prior bypass surgery in 2009 with prior stenting prior to that Plan We will replace the patient's potassium today. We will defer the diuretic management to nephrology. Continue to monitor intake and output along with daily weights and daily lytes BUN and creatinine. DNP note has been reviewed, I agree with a documented findings and plan of care. Patient was seen and examined.
[2020-06-30 16:45] LABS: Glucose,Whole Blood 145 mg/dL (75-99)
[2020-06-30 19:05] LABS: % Iron Saturation 8.84 (15.00-50.00); Ferritin 1509.1 ng/mL (22.0-322.0)
[2020-06-30 20:07] LABS: Glucose,Whole Blood 154 mg/dL (75-99)
[2020-06-30] MEDS: DOXAZOSIN 4 MG TAB PO SCH (21:20)
[2020-07-01] MEDS: BISMUTH SUBSALICYLATE 4,192 MG/240 ML BOTTLE PO SCH ×5 (00:15→22:08)
[2020-07-01] MEDS: HEPARIN SODIUM,PORCINE 5,000 UNIT/ML 1 ML VIAL SQ SCH ×4 (00:15→23:13)
[2020-07-01 06:02] LABS: Glucose,Whole Blood 157 mg/dL (75-99)
[2020-07-01] MEDS: carvediloL 12.5 MG TAB PO SCH ×2 (06:30→17:37)
[2020-07-01] MEDS: PANTOPRAZOLE 40 MG TABLET PO SCH (06:30)
[2020-07-01] MEDS: INSULIN ASPART (NovoLOG) 100 UNIT/ML VIAL SQ SCH ×4 (06:32→22:07)
[2020-07-01] MEDS: DOBUTamine DRIP 500 MG in DEXTROSE/WATER 1 250ML.BAG IV SCH (06:37)
[2020-07-01 08:50] LABS: Magnesium 1.8 mg/dL (1.6-2.3); Potassium 3.4 mmol/L (3.5-5.1)
[2020-07-01] MEDS: FUROSEMIDE 10 MG/ML 10 ML VIAL IV SCH (09:18)
[2020-07-01] MEDS: LINAGLIPTIN 5 MG TABLET PO SCH (09:18)
[2020-07-01] MEDS: allopurinoL 100 MG TAB PO SCH (09:18)
[2020-07-01] MEDS: FINASTERIDE 5 MG TAB PO SCH (09:18)
[2020-07-01] MEDS: ASPIRIN 81 MG PO SCH (09:18)
[2020-07-01 09:35] LABS: Basophils % (A) 0 %; Eosinophils # (A) 0.1 k/uL (0-0.7); Eosinophils % (A) 1 %; HCT 33.4 % (39.0-53.0); HGB 10.5 gm/dL (13.0-17.5); Hypochromasia Slight; Lymphocytes # (A) 1.5 k/uL (1.0-4.8); Lymphocytes % (A) 12 %; MCH 26.3 pg (25.0-35.0); MCHC 31.5 g/dL (31.0-37.0); MCV 83.5 fL (80.0-100.0); Mean Platelet Volume 8.4; Monocytes # (A) 0.7 k/uL (0-1.0); Monocytes % (A) 6 %; Neutrophils % (A) 79 %; Platelet Count 317 k/uL (150-450); RDW 13.3 % (11.5-15.5); WBC 12.5 k/uL (3.8-10.6)
[2020-07-01] MEDS ORDERED: POTASSIUM CHLORIDE ER 20 MEQ TAB.ER PO STA (09:59)
--- NOTE | 2020-07-01 10:01 | P.PN ---
Subjective Patient was seen in follow-up for acute kidney injury and chronic kidney disease. Renal function improving. Currently maintained on dobutamine and IV Lasix 80 mg 2 times daily. Edema improved. Good urine output. Does not have a Nascimento catheter. No vomiting or diarrhea. Overall feels better. Vital signs are stable. General: The patient appeared well nourished and normally developed. HEENT: Head exam is unremarkable. Neck is without jugular venous distension. LUNGS: Breath sounds decreased. HEART: Rate and Rhythm are regular. ABDOMEN: Soft, nontender. EXTREMITITES: Trace edema. Objective - Vital Signs Vital signs: Vital Signs Temp 97.7 F 07/01/20 08:20 Pulse 64 07/01/20 08:20 Resp 20 07/01/20 08:20 BP 121/78 07/01/20 08:20 Pulse Ox 99 07/01/20 08:20 Intake & Output 06/30/20 07/01/20 07/01/20 18:59 06:59 18:59 Intake Total 530 550.000 120 Output Total 1725 2220 200 Balance -1195 -1670.000 -80 Weight 104 kg Intake: IV 50 Intake, IV Titration 250.000 Amount DOBUTamine DRIP 500 mg In 250.000 Dextrose/Water 1 250ml. bag @ 2.5 MCG/KG/MIN 8. 273 mls/hr IV .Q24H [facility] Rx#:[id number] Oral 480 300 120 Output: Urine 1725 2220 200 Other: Voiding Method Toilet Toilet Urinal # Voids 1 1 - Labs CBC & Chem 7: 07/01/20 06:53 07/01/20 06:53 Labs: Abnormal Lab Results - Last 24 Hours (Table) 06/30/20 06/30/20 06/30/20 Range/Units 10:50 11:51 16:44 WBC (3.8-10.6) k/uL RBC (4.30-5.90) m/uL Hgb (13.0-17.5) gm/dL Hct (39.0-53.0) % Neutrophils # (1.3-7.7) k/uL Potassium 3.3 L (3.5-5.1) mmol/L Carbon Dioxide 31 H (22-30) mmol/L BUN 87 H (9-20) mg/dL Creatinine 2.02 H (0.66-1.25) mg/dL Glucose 155 H (74-99) mg/dL POC Glucose (mg/dL) 150 H 145 H (75-99) mg/dL Iron 19 L (65-175) ug/dL TIBC 215 L (228-460) ug/dL % Saturation 8.84 L (15.00-50.00) Ferritin 1509.1 H (22.0-322.0) ng/mL 06/30/20 07/01/20 07/01/20 Range/Units 20:05 06:00 06:53 WBC (3.8-10.6) k/uL RBC (4.30-5.90) m/uL Hgb (13.0-17.5) gm/dL Hct (39.0-53.0) % Neutrophils # (1.3-7.7) k/uL Potassium 3.4 L (3.5-5.1) mmol/L Carbon Dioxide (22-30) mmol/L BUN 82 H (9-20) mg/dL Creatinine 1.89 H (0.66-1.25) mg/dL Glucose 143 H (74-99) mg/dL POC Glucose (mg/dL) 154 H 157 H (75-99) mg/dL Iron (65-175) ug/dL TIBC (228-460) ug/dL % Saturation (15.00-50.00) Ferritin (22.0-322.0) ng/mL 07/01/20 Range/Units 06:53 WBC 12.5 H (3.8-10.6) k/uL RBC 4.00 L (4.30-5.90) m/uL Hgb 10.5 L (13.0-17.5) gm/dL Hct 33.4 L (39.0-53.0) % Neutrophils # 10.0 H (1.3-7.7) k/uL Potassium (3.5-5.1) mmol/L Carbon Dioxide (22-30) mmol/L BUN (9-20) mg/dL Creatinine (0.66-1.25) mg/dL Glucose (74-99) mg/dL POC Glucose (mg/dL) (75-99) mg/dL Iron (65-175) ug/dL TIBC (228-460) ug/dL % Saturation (15.00-50.00) Ferritin (22.0-322.0) ng/mL Microbiology - Last 24 Hours (Table) 06/27/20 00:00 Stool Culture - Final Stool Assessment and Plan Plan: Assessment: 1. Acute kidney injury secondary to ATN secondary to cardiorenal syndrome. Renal function improving. Creatinine 1.89 today. UPC 0.07. 2. Chronic kidney disease stage III with baseline creatinine in the range of 1- 1.2. Etiology is nephrosclerosis. 3. Acute on chronic systolic CHF. 4. Volume overload. Improved with diuresis. 5. Hypokalemia secondary to diuresis. Magnesium normal. 6. Diabetes mellitus. 7. Anemia of chronic kidney disease. High ferritin level noted. Hemoglobin at goal today. Plan: Discontinue dobutamine. Decrease Lasix to 40 mg IV twice daily. Can be transitioned over to oral 40 mg twice daily upon discharge. Low-salt diet and 1500 mL fluid restriction. Replace potassium. 40 mEq today. Repeat electrolytes in the morning.
--- NOTE | 2020-07-01 10:40 | P.PN ---
Subjective Progress Note Date: 07/01/20 's is a pleasant 84-year-old gentleman with past medical history significant for coronary artery disease and prior bypass surgery in 2009 prior to that patient also had stents placed, ischemic cardio myopathy with prior AICD, hypertension, hyperlipidemia, diabetes, chronic systolic congestive heart failure. Patient initially presented to the hospital with hypoglycemia, being currently treated for congestive cardiac failure. He is on a dobutamine drip along with IV diuretics, currently being managed by nephrology. BloodI pressure 140/60 with a heart rate in the 60s, 90% on room air. Sodium 143, potassium 3.3, BUN 87, creatinine 2.0. 07/01/2020 Patient was seen and examined this morning sitting up in the chair at bedside. Feeling significantly better overall. Continues to be on dobutamine and IV Lasix at 80 mg IV twice a day today. He still has a trace of peripheral edema however significantly improved overall. His urine output has been excellent. Blood pressure this morning 130/80 with a heart rate of 90, 98% on 3 L of oxygen.laboratory data from this morning remains pending. We did have a discussion with nephrology at this morning, we will discontinue the IV dobutamin e, his IV Lasix will be decrease to 40 mg IV twice a day today, from tomorrow he will be on 40 mg by mouth twice a day. Objective - Vital Signs Vital signs: Vital Signs Temp 97.7 F 07/01/20 08:20 Pulse 64 07/01/20 08:20 Resp 20 07/01/20 08:20 BP 121/78 07/01/20 08:20 Pulse Ox 99 07/01/20 08:20 Intake & Output 06/30/20 07/01/20 07/01/20 18:59 06:59 18:59 Intake Total 530 550.000 120 Output Total 1725 2220 200 Balance -1195 -1670.000 -80 Weight 104 kg Intake: IV 50 Intake, IV Titration 250.000 Amount DOBUTamine DRIP 500 mg In 250.000 Dextrose/Water 1 250ml. bag @ 2.5 MCG/KG/MIN 8. 273 mls/hr IV .Q24H [facility] Rx#:[id number] Oral 480 300 120 Output: Urine 1725 2220 200 Other: Voiding Method Toilet Toilet Urinal # Voids 1 1 - Exam CONSTITUTIONAL: No acute distress. HEENT: Head is normocephalic. Pupils are equal, round. Sclerae anicteric. Mucous membranes of the mouth are moist. Positive JVD noted bilaterally. No carotid bruit. CHEST EXAMINATION: Diminished bilaterally , no wheezes or rhonchi. No chest wall tenderness is noted on palpation or with deep breathing. HEART EXAMINATION: Regular rate and rhythm. S1, S2 heard. Systolic ejection murmur at the left sternal border, no gallops or rub. EXTREMITIES: 2+ peripheral pulses,trace bilateral lower extremity pitting edema and no calf tenderness. - Labs CBC & Chem 7: 07/01/20 06:53 07/01/20 06:53 Labs: Abnormal Lab Results - Last 24 Hours (Table) 06/30/20 06/30/20 06/30/20 Range/Units 10:50 11:51 16:44 WBC (3.8-10.6) k/uL RBC (4.30-5.90) m/uL Hgb (13.0-17.5) gm/dL Hct (39.0-53.0) % Neutrophils # (1.3-7.7) k/uL Potassium 3.3 L (3.5-5.1) mmol/L Carbon Dioxide 31 H (22-30) mmol/L BUN 87 H (9-20) mg/dL Creatinine 2.02 H (0.66-1.25) mg/dL Glucose 155 H (74-99) mg/dL POC Glucose (mg/dL) 150 H 145 H (75-99) mg/dL Iron 19 L (65-175) ug/dL TIBC 215 L (228-460) ug/dL % Saturation 8.84 L (15.00-50.00) Ferritin 1509.1 H (22.0-322.0) ng/mL 06/30/20 07/01/20 07/01/20 Range/Units 20:05 06:00 06:53 WBC (3.8-10.6) k/uL RBC (4.30-5.90) m/uL Hgb (13.0-17.5) gm/dL Hct (39.0-53.0) % Neutrophils # (1.3-7.7) k/uL Potassium 3.4 L (3.5-5.1) mmol/L Carbon Dioxide (22-30) mmol/L BUN 82 H (9-20) mg/dL Creatinine 1.89 H (0.66-1.25) mg/dL Glucose 143 H (74-99) mg/dL POC Glucose (mg/dL) 154 H 157 H (75-99) mg/dL Iron (65-175) ug/dL TIBC (228-460) ug/dL % Saturation (15.00-50.00) Ferritin (22.0-322.0) ng/mL 07/01/20 Range/Units 06:53 WBC 12.5 H (3.8-10.6) k/uL RBC 4.00 L (4.30-5.90) m/uL Hgb 10.5 L (13.0-17.5) gm/dL Hct 33.4 L (39.0-53.0) % Neutrophils # 10.0 H (1.3-7.7) k/uL Potassium (3.5-5.1) mmol/L Carbon Dioxide (22-30) mmol/L BUN (9-20) mg/dL Creatinine (0.66-1.25) mg/dL Glucose (74-99) mg/dL POC Glucose (mg/dL) (75-99) mg/dL Iron (65-175) ug/dL TIBC (228-460) ug/dL % Saturation (15.00-50.00) Ferritin (22.0-322.0) ng/mL Microbiology - Last 24 Hours (Table) 06/27/20 00:00 Stool Culture - Final Stool Assessment and Plan Plan: ASSESSMENT and plan #1 Acute on chronic systolic heart failure #2 Hypoglycemia #3 Acute kidney injury #4 Leukocytosis #5 Ischemic cardiomyopathy status post AICD #6 Hypertension #7 Dyslipidemia #8 Diabetes #9 coronary artery disease with prior bypass surgery in 2010 with prior stenting prior to that Plan We will discontinue the IV dobutamine today. Lasix adjustment as per nephrology. Plan for possible discharge home in 24 hours. DNP note has been reviewed, I agree with a documented findings and plan of care. Patient was seen and examined.
--- NOTE | 2020-07-01 10:42 | P.PN ---
Subjective Progress Note Date: 07/01/20 Patient is doing well today. He was in the recliner chair when I saw him. He told me that his shortness of breath is at baseline. No acute events overnight reported by nursing staff. Objective - Vital Signs Vital signs: Vital Signs Temp 97.7 F 07/01/20 08:20 Pulse 64 07/01/20 08:20 Resp 20 07/01/20 08:20 BP 121/78 07/01/20 08:20 Pulse Ox 99 07/01/20 08:20 Intake & Output 06/30/20 07/01/20 07/01/20 18:59 06:59 18:59 Intake Total 530 550.000 120 Output Total 1725 2220 200 Balance -1195 -1670.000 -80 Weight 104 kg Intake: IV 50 Intake, IV Titration 250.000 Amount DOBUTamine DRIP 500 mg In 250.000 Dextrose/Water 1 250ml. bag @ 2.5 MCG/KG/MIN 8. 273 mls/hr IV .Q24H [facility] Rx#:[id number] Oral 480 300 120 Output: Urine 1725 2220 200 Other: Voiding Method Toilet Toilet Urinal # Voids 1 1 - Exam General: The patient is awake and alert, in no distress Eye: there is normal conjunctiva bilaterally. Neck: The neck is supple, there is no JVD. Cardiovascular: Normal S1-S2, no S3-S4, no murmurs. Respiratory: Lungs clear to auscultation bilaterally Gastrointestinal: Abdomen is soft, nontender Musculoskeletal: There is no pedal edema. Neurological:. Speech is normal. Skin: Skin is warm and dry - Labs CBC & Chem 7: 07/01/20 06:53 07/01/20 06:53 Labs: Abnormal Lab Results - Last 24 Hours (Table) 06/30/20 06/30/20 06/30/20 Range/Units 10:50 11:51 16:44 WBC (3.8-10.6) k/uL RBC (4.30-5.90) m/uL Hgb (13.0-17.5) gm/dL Hct (39.0-53.0) % Neutrophils # (1.3-7.7) k/uL Potassium 3.3 L (3.5-5.1) mmol/L Carbon Dioxide 31 H (22-30) mmol/L BUN 87 H (9-20) mg/dL Creatinine 2.02 H (0.66-1.25) mg/dL Glucose 155 H (74-99) mg/dL POC Glucose (mg/dL) 150 H 145 H (75-99) mg/dL Iron 19 L (65-175) ug/dL TIBC 215 L (228-460) ug/dL % Saturation 8.84 L (15.00-50.00) Ferritin 1509.1 H (22.0-322.0) ng/mL 06/30/20 07/01/20 07/01/20 Range/Units 20:05 06:00 06:53 WBC (3.8-10.6) k/uL RBC (4.30-5.90) m/uL Hgb (13.0-17.5) gm/dL Hct (39.0-53.0) % Neutrophils # (1.3-7.7) k/uL Potassium 3.4 L (3.5-5.1) mmol/L Carbon Dioxide (22-30) mmol/L BUN 82 H (9-20) mg/dL Creatinine 1.89 H (0.66-1.25) mg/dL Glucose 143 H (74-99) mg/dL POC Glucose (mg/dL) 154 H 157 H (75-99) mg/dL Iron (65-175) ug/dL TIBC (228-460) ug/dL % Saturation (15.00-50.00) Ferritin (22.0-322.0) ng/mL 07/01/20 Range/Units 06:53 WBC 12.5 H (3.8-10.6) k/uL RBC 4.00 L (4.30-5.90) m/uL Hgb 10.5 L (13.0-17.5) gm/dL Hct 33.4 L (39.0-53.0) % Neutrophils # 10.0 H (1.3-7.7) k/uL Potassium (3.5-5.1) mmol/L Carbon Dioxide (22-30) mmol/L BUN (9-20) mg/dL Creatinine (0.66-1.25) mg/dL Glucose (74-99) mg/dL POC Glucose (mg/dL) (75-99) mg/dL Iron (65-175) ug/dL TIBC (228-460) ug/dL % Saturation (15.00-50.00) Ferritin (22.0-322.0) ng/mL Microbiology - Last 24 Hours (Table) 06/27/20 00:00 Stool Culture - Final Stool Assessment and Plan Assessment: This is a 84-year-old male with complex past medical history noted below who presented to the emergency room with worsening shortness of breath and dyspnea. Patient was evaluated in the ER and currently admitted to the hospital for further management of his medical problems noted below. Acute kidney injury likely secondary to cardiorenal/ATN -Cr improving f -Hold hydrochlorothiazide, sulfonylurea, Mobic -Seen and evaluated by nephrology. Started on dobutamine drip and IV Lasix. Dobutamine drip discontinued today. Lasix dose adjusted to 40 mg twice daily -No hydronephrosis on abdominal ultrasound -Daily BMP Hypokalemia, to be replaced via protocol Chronic Diarrhea - C diff, Stool culture, fecal lactoferrin/calprotectin - negative - GI recs: Bismuth - C-scope unrevealing, follow up biopsies in the outpatient setting with GI Leukocytosis, improving -Unknown etiology -No clear signs of infection -Repeat CBC tomorrow morning DM 2 now with prolonged hypoglycemia on presentation now resolved - Start SSI, tradjenta - Discontinue glyburide - A1C 5.9 in May Systolic CHF with EF 35-40% - Cardio recs appreciated - Not on ACEI and will not start due to JANET - COREG, Lasix IV BPH - Doxyzosyn - Proscar HTN - Coreg HLD - Lovastatin and fish oil Refractory hypoglycemia secondary to sulfonylurea use and poor oral intake, symptomatic, resolved Dobutamine drip discontinued today. Encouraged ambulation. Anticipate discharge home tomorrow.
[2020-07-01 11:35] LABS: Glucose,Whole Blood 179 mg/dL (75-99)
[2020-07-01] MEDS: ATORVASTATIN 10 MG TAB PO SCH (12:38)
--- NOTE | 2020-07-01 12:45 | P.PN ---
Subjective Progress Note Date: 07/01/20 Principal diagnosis: Acute diarrhea This is a pleasant 84-year-old white male who was admitted to the hospital with acute onset of diarrhea, abdominal pain, fatigue and not feeling well with significant shortness of breath over the last week's duration. He states the diarrhea has started about a week ago with 5-7 loose watery bowel movements daily associated with cramping, however denies any melena or rectal bleeding. The patient denies any recent antibiotic use or travel. Stool studies for C. difficile toxin were done and reported negative, stool cultures are negative. He is status post colonoscopy from yesterday that showed moderate left colonic diverticulosis, is normal-appearing colon from rectum to cecum, however complete visualization was precipitated by poor prep.. He denies any bowel movement or loose stools today. He denies any abdominal pain, nausea, or vomiting. The patient states he's feeling well today. Objective - Vital Signs Vital signs: Vital Signs Temp 97.7 F 07/01/20 08:20 Pulse 64 07/01/20 08:20 Resp 20 07/01/20 08:20 BP 121/78 07/01/20 08:20 Pulse Ox 99 07/01/20 08:20 Intake & Output 06/30/20 07/01/20 07/01/20 18:59 06:59 18:59 Intake Total 530 550.000 120 Output Total 1725 2220 400 Balance -1195 -1670.000 -280 Weight 104 kg Intake: IV 50 Intake, IV Titration 250.000 Amount DOBUTamine DRIP 500 mg In 250.000 Dextrose/Water 1 250ml. bag @ 2.5 MCG/KG/MIN 8. 273 mls/hr IV .Q24H [facility] Rx#:[id number] Oral 480 300 120 Output: Urine 1725 2220 400 Other: Voiding Method Toilet Toilet Urinal # Voids 1 1 - Exam General appearance: The patient is alert, oriented, in no acute distress. Obese. HET: Head is normocephalic and atraumatic. Conjunctiva pink. Sclera anicteric. Neck: Supple without lymphadenopathy. Abdomen: Soft, obese, nontender, nondistended with bowel sounds. No guarding or rigidity. Extremities: Normal skin color and turgor. No pedal edema Neurological: No focal deficits. Alert and oriented 3. - Labs CBC & Chem 7: 10/20/20 06:53 07/01/20 06:53 Labs: Abnormal Lab Results - Last 24 Hours (Table) 06/30/20 06/30/20 06/30/20 Range/Units 10:50 16:44 20:05 WBC (3.8-10.6) k/uL RBC (4.30-5.90) m/uL Hgb (13.0-17.5) gm/dL Hct (39.0-53.0) % Neutrophils # (1.3-7.7) k/uL Potassium (3.5-5.1) mmol/L BUN (9-20) mg/dL Creatinine (0.66-1.25) mg/dL Glucose (74-99) mg/dL POC Glucose (mg/dL) 145 H 154 H (75-99) mg/dL Iron 19 L (65-175) ug/dL TIBC 215 L (228-460) ug/dL % Saturation 8.84 L (15.00-50.00) Ferritin 1509.1 H (22.0-322.0) ng/mL 07/01/20 07/01/20 07/01/20 Range/Units 06:00 06:53 06:53 WBC 12.5 H (3.8-10.6) k/uL RBC 4.00 L (4.30-5.90) m/uL Hgb 10.5 L (13.0-17.5) gm/dL Hct 33.4 L (39.0-53.0) % Neutrophils # 10.0 H (1.3-7.7) k/uL Potassium 3.4 L (3.5-5.1) mmol/L BUN 82 H (9-20) mg/dL Creatinine 1.89 H (0.66-1.25) mg/dL Glucose 143 H (74-99) mg/dL POC Glucose (mg/dL) 157 H (75-99) mg/dL Iron (65-175) ug/dL TIBC (228-460) ug/dL % Saturation (15.00-50.00) Ferritin (22.0-322.0) ng/mL 07/01/20 Range/Units 11:34 WBC (3.8-10.6) k/uL RBC (4.30-5.90) m/uL Hgb (13.0-17.5) gm/dL Hct (39.0-53.0) % Neutrophils # (1.3-7.7) k/uL Potassium (3.5-5.1) mmol/L BUN (9-20) mg/dL Creatinine (0.66-1.25) mg/dL Glucose (74-99) mg/dL POC Glucose (mg/dL) 179 H (75-99) mg/dL Iron (65-175) ug/dL TIBC (228-460) ug/dL % Saturation (15.00-50.00) Ferritin (22.0-322.0) ng/mL Microbiology - Last 24 Hours (Table) 06/27/20 00:00 Stool Culture - Final Stool Assessment and Plan (1) Diarrhea Narrative/Plan: This is a gentleman with acute onset of diarrhea for the last 1 week's duration. Patient with bowel movements anywhere from 5-7 a day that are loose to watery in consistency with no blood or mucus in the stool. Stool studies have been collected, C. difficile cytotoxin is negative. Stool cultures are currently pending. Most likely we are dealing with an infectious etiology, possibly viral or bacterial in nature. Diarrhea has improved, patient has had no further diarrhea since yesterday morning. He has Imodium ordered as needed. [facility] which [facility] as [facility]. Patient is status post colonoscopy that showed moderate left colonic diverticulosis, random biopsies were taken, there is normal appearing colon from rectum to cecum, however complete visualization prohibited by poor prep. Diarrhea is improving. Current Visit: Yes Status: Acute Code(s): R19.7 - DIARRHEA, UNSPECIFIED SNOMED Code(s): 07372686 (2) Abdominal pain Narrative/Plan: Likely related to viral gastroenteritis/ infectious colitis Current Visit: Yes Status: Acute Code(s): R10.9 - UNSPECIFIED ABDOMINAL PAIN SNOMED Code(s): 16973311 (3) Diabetes mellitus Current Visit: Yes Status: Acute Code(s): E11.9 - TYPE 2 DIABETES MELLITUS WITHOUT COMPLICATIONS SNOMED Code(s): 73358730 (4) Acute kidney injury Current Visit: Yes Status: Acute Code(s): N17.9 - ACUTE KIDNEY FAILURE, UNSPECIFIED SNOMED Code(s): 81851557 Plan: 1. Supportive care 2. Stool studies negative to date 3. Imodium discontinued and Pepto-Bismol added. Please hold Pepto-Bismol if patient becomes constipated 4. Advance diet as tolerated 5. Patient is status post colonoscopy yesterday, results as above 6. Abdominal ultrasound reviewed, no acute findings. 6. We will sign off at this time, patient to follow-up in the next 1-2 weeks for biopsy results. The impression and plan of care has been dictated as directed. Dr. Guardado I performed a history and examination of this patient, discussed the same with the dictator. I agree with the dictator's note ,documented as a scribe. Any additional findings or plans will be noted.
[2020-07-01 13:17] LABS: Glucose,Whole Blood 169 mg/dL (75-99)
[2020-07-01 16:35] LABS: Glucose,Whole Blood 131 mg/dL (75-99)
[2020-07-01 20:32] LABS: Glucose,Whole Blood 146 mg/dL (75-99)
[2020-07-01] MEDS: DOXAZOSIN 4 MG TAB PO SCH (22:06)
[2020-07-01] MEDS: FUROSEMIDE 10 MG/ML 4 ML VIAL IV SCH (22:06)
[2020-07-02 06:12] LABS: Glucose,Whole Blood 134 mg/dL (75-99)
[2020-07-02] MEDS: carvediloL 12.5 MG TAB PO SCH (06:34)
[2020-07-02] MEDS: PANTOPRAZOLE 40 MG TABLET PO SCH (06:35)
[2020-07-02] MEDS: INSULIN ASPART (NovoLOG) 100 UNIT/ML VIAL SQ SCH (06:35)
[2020-07-02] MEDS: BISMUTH SUBSALICYLATE 4,192 MG/240 ML BOTTLE PO SCH (06:35)
[2020-07-02 08:18] LABS: Basophils % (A) 0 %; Eosinophils # (A) 0.2 k/uL (0-0.7); Eosinophils % (A) 1 %; HCT 34.5 % (39.0-53.0); HGB 10.8 gm/dL (13.0-17.5); Hypochromasia Moderate; Lymphocytes # (A) 1.9 k/uL (1.0-4.8); Lymphocytes % (A) 16 %; MCH 26.1 pg (25.0-35.0); MCHC 31.3 g/dL (31.0-37.0); MCV 83.2 fL (80.0-100.0); Mean Platelet Volume 7.1; Monocytes # (A) 0.7 k/uL (0-1.0); Monocytes % (A) 6 %; Neutrophils # (A) 8.8 k/uL (1.3-7.7); Neutrophils % (A) 76 %; Platelet Count 372 k/uL (150-450); RBC 4.15 m/uL (4.30-5.90); RDW 13.3 % (11.5-15.5); WBC 11.7 k/uL (3.8-10.6)
[2020-07-02 08:30] LABS: Calcium 9.1 mg/dL (8.4-10.2); Magnesium 1.7 mg/dL (1.6-2.3); Potassium 3.6 mmol/L (3.5-5.1)
[2020-07-02] MEDS: LINAGLIPTIN 5 MG TABLET PO SCH (09:05)
[2020-07-02] MEDS: FUROSEMIDE 10 MG/ML 4 ML VIAL IV SCH (09:05)
[2020-07-02] MEDS: FINASTERIDE 5 MG TAB PO SCH (09:05)
[2020-07-02] MEDS: ASPIRIN 81 MG PO SCH (09:05)
[2020-07-02] MEDS: HEPARIN SODIUM,PORCINE 5,000 UNIT/ML 1 ML VIAL SQ SCH (09:05)
[2020-07-02] MEDS: allopurinoL 100 MG TAB PO SCH (09:06)
--- NOTE | 2020-07-02 09:09 | P.PN ---
Subjective Patient was seen in follow-up for acute kidney injury and chronic kidney disease. Renal function improving. Currently maintained on IV Lasix 40 mg twice daily. Edema improved. Good urine output. Does not have a Nascimento catheter. No vomiting or diarrhea. Overall feels better. No changes overnight. Vital signs are stable. General: The patient appeared well nourished and normally developed. HEENT: Head exam is unremarkable. Neck is without jugular venous distension. LUNGS: Breath sounds decreased. HEART: Rate and Rhythm are regular. ABDOMEN: Soft, nontender. EXTREMITITES: Trace edema. Objective - Vital Signs Vital signs: Vital Signs Temp 98 F 07/02/20 07:43 Pulse 98 07/02/20 07:43 Resp 16 07/02/20 08:00 BP 159/67 07/02/20 07:43 Pulse Ox 98 07/02/20 03:55 Intake & Output 07/01/20 07/02/20 07/02/20 18:59 06:59 18:59 Intake Total 360 480 Output Total 925 2000 300 Balance -565 -1520 -300 Weight 99 kg Intake: Oral 360 480 Output: Urine 925 2000 300 Other: Voiding Method Toilet Urinal # Voids 1 1 - Labs CBC & Chem 7: 07/02/20 07:04 07/02/20 07:04 Labs: Abnormal Lab Results - Last 24 Hours (Table) 07/01/20 07/01/20 07/01/20 Range/Units 06:53 11:34 13:16 WBC 12.5 H (3.8-10.6) k/uL RBC 4.00 L (4.30-5.90) m/uL Hgb 10.5 L (13.0-17.5) gm/dL Hct 33.4 L (39.0-53.0) % Neutrophils # 10.0 H (1.3-7.7) k/uL Carbon Dioxide (22-30) mmol/L BUN (9-20) mg/dL Creatinine (0.66-1.25) mg/dL Glucose (74-99) mg/dL POC Glucose (mg/dL) 179 H 169 H (75-99) mg/dL 07/01/20 07/01/20 07/02/20 Range/Units 16:33 20:23 05:54 WBC (3.8-10.6) k/uL RBC (4.30-5.90) m/uL Hgb (13.0-17.5) gm/dL Hct (39.0-53.0) % Neutrophils # (1.3-7.7) k/uL Carbon Dioxide (22-30) mmol/L BUN (9-20) mg/dL Creatinine (0.66-1.25) mg/dL Glucose (74-99) mg/dL POC Glucose (mg/dL) 131 H 146 H 134 H (75-99) mg/dL 07/02/20 07/02/20 Range/Units 07:04 07:04 WBC 11.7 H (3.8-10.6) k/uL RBC 4.15 L (4.30-5.90) m/uL Hgb 10.8 L (13.0-17.5) gm/dL Hct 34.5 L (39.0-53.0) % Neutrophils # 8.8 H (1.3-7.7) k/uL Carbon Dioxide 32 H (22-30) mmol/L BUN 73 H (9-20) mg/dL Creatinine 1.77 H (0.66-1.25) mg/dL Glucose 148 H (74-99) mg/dL POC Glucose (mg/dL) (75-99) mg/dL Microbiology - Last 24 Hours (Table) 06/27/20 00:00 Stool Culture - Final Stool Assessment and Plan Plan: Assessment: 1. Acute kidney injury secondary to ATN secondary to cardiorenal syndrome. Renal function improving. Creatinine 1.77 today. UPC 0.07. 2. Chronic kidney disease stage III with baseline creatinine in the range of 1- 1.2. Etiology is nephrosclerosis. 3. Acute on chronic systolic CHF. 4. Volume overload. Improved with diuresis. 5. Hypokalemia secondary to diuresis. Magnesium normal. 6. Diabetes mellitus. 7. Anemia of chronic kidney disease. High ferritin level noted. Hemoglobin at goal today. Plan: I will change Lasix to 40 mg orally twice daily. Low-salt diet and 1500 mL fluid restriction. Add maintenance potassium supplementation. Also advised patient to monitor his weight closely at home. Follow-up outpatient in 1 week.
[2020-07-02] MEDS ORDERED: POTASSIUM CHLORIDE ER 20 MEQ TAB.ER PO SCH (09:15)
--- NOTE | 2020-07-02 09:47 | P.PN ---
Subjective Progress Note Date: 07/02/20 's is a pleasant 84-year-old gentleman with past medical history significant for coronary artery disease and prior bypass surgery in 2009 prior to that patient also had stents placed, ischemic cardio myopathy with prior AICD, hypertension, hyperlipidemia, diabetes, chronic systolic congestive heart failure. Patient initially presented to the hospital with hypoglycemia, being currently treated for congestive cardiac failure. He is on a dobutamine drip along with IV diuretics, currently being managed by nephrology. BloodI pressure 140/60 with a heart rate in the 60s, 90% on room air. Sodium 143, potassium 3.3, BUN 87, creatinine 2.0. 07/01/2020 Patient was seen and examined this morning sitting up in the chair at bedside. Feeling significantly better overall. Continues to be on dobutamine and IV Lasix at 80 mg IV twice a day today. He still has a trace of peripheral edema however significantly improved overall. His urine output has been excellent. Blood pressure this morning 130/80 with a heart rate of 90, 98% on 3 L of oxygen.laboratory data from this morning remains pending. We did have a discussion with nephrology at this morning, we will discontinue the IV dobutamin e, his IV Lasix will be decrease to 40 mg IV twice a day today, from tomorrow he will be on 40 mg by mouth twice a day. 07/02/2020 Patientwas seen and examined this morning, overall doing very well.continues at this time to be on 40 mg of IV Lasix twice a day, with the plan to discontinue that today and start the patient on oral Lasix 40 mg twice a day. His blood pressure this morning 158/60 with a heart rate in the 60s, 98% on room air.White blood cell count 11.7, hemoglobin 10.8, platelet count 372. Sodium 145, potassium 3.6, BUN 73, creatinine 1.7. Objective - Vital Signs Vital signs: Vital Signs Temp 98 F 07/02/20 07:43 Pulse 98 07/02/20 07:43 Resp 16 07/02/20 08:00 BP 159/67 07/02/20 07:43 Pulse Ox 98 07/02/20 03:55 Intake & Output 07/01/20 07/02/20 07/02/20 18:59 06:59 18:59 Intake Total 360 480 Output Total 925 2000 300 Balance -565 -1520 -300 Weight 99 kg Intake: Oral 360 480 Output: Urine 925 1999 300 Other: Voiding Method Toilet Urinal # Voids 1 1 - Exam CONSTITUTIONAL: No acute distress. HEENT: Head is normocephalic. Pupils are equal, round. Sclerae anicteric. Mucous membranes of the mouth are moist. Positive JVD noted bilaterally. No carotid bruit. CHEST EXAMINATION: Diminished bilaterally , no wheezes or rhonchi. No chest wall tenderness is noted on palpation or with deep breathing. HEART EXAMINATION: Regular rate and rhythm. S1, S2 heard. Systolic ejection murmur at the left sternal border, no gallops or rub. EXTREMITIES: 2+ peripheral pulses,no evidence of bilateral lower extremity pitting edema and no calf tenderness. - Labs CBC & Chem 7: 07/02/20 07:04 07/02/20 07:04 Labs: Abnormal Lab Results - Last 24 Hours (Table) 07/01/20 07/01/20 07/01/20 Range/Units 11:34 13:16 16:33 WBC (3.8-10.6) k/uL RBC (4.30-5.90) m/uL Hgb (13.0-17.5) gm/dL Hct (39.0-53.0) % Neutrophils # (1.3-7.7) k/uL Carbon Dioxide (22-30) mmol/L BUN (9-20) mg/dL Creatinine (0.66-1.25) mg/dL Glucose (74-99) mg/dL POC Glucose (mg/dL) 179 H 169 H 131 H (75-99) mg/dL 07/01/20 07/02/20 07/02/20 Range/Units 20:23 05:54 07:04 WBC 11.7 H (3.8-10.6) k/uL RBC 4.15 L (4.30-5.90) m/uL Hgb 10.8 L (13.0-17.5) gm/dL Hct 34.5 L (39.0-53.0) % Neutrophils # 8.8 H (1.3-7.7) k/uL Carbon Dioxide (22-30) mmol/L BUN (9-20) mg/dL Creatinine (0.66-1.25) mg/dL Glucose (74-99) mg/dL POC Glucose (mg/dL) 146 H 134 H (75-99) mg/dL 07/02/20 Range/Units 07:04 WBC (3.8-10.6) k/uL RBC (4.30-5.90) m/uL Hgb (13.0-17.5) gm/dL Hct (39.0-53.0) % Neutrophils # (1.3-7.7) k/uL Carbon Dioxide 32 H (22-30) mmol/L BUN 73 H (9-20) mg/dL Creatinine 1.77 H (0.66-1.25) mg/dL Glucose 148 H (74-99) mg/dL POC Glucose (mg/dL) (75-99) mg/dL Microbiology - Last 24 Hours (Table) 06/27/20 00:00 Stool Culture - Final Stool Assessment and Plan Plan: ASSESSMENT and plan #1 Acute on chronic systolic heart failure #2 Hypoglycemia #3 Acute kidney injury #4 Leukocytosis #5 Ischemic cardiomyopathy status post AICD #6 Hypertension #7 Dyslipidemia #8 Diabetes #9 coronary artery disease with prior bypass surgery in 2009 with prior stenting prior to that Plan From cardiology's perspective, patient may be able to be discharged once cleared by nephrology and primary. Follow-up appointment in the office 2 weeks post discharge. Social work is also involved regarding discharge planning. DNP note has been reviewed, I agree with a documented findings and plan of care. Patient was seen and examined.
--- NOTE | 2020-07-02 09:54 | P.DS ---
Providers Date of admission: 06/24/20 20:52 Expected date of discharge: 07/02/20 Attending physician: Dominga Alamo MD Consults: 06/24/20 23:02 Consult Physician Urgent Consulting Provider: Gary Buchanan Consult Reason/Comments: CHF Do you want consulting provider notified?: Yes 06/25/20 09:54 Consult Physician Routine Consulting Provider: Bre Domingo Consult Reason/Comments: JANET Do you want consulting provider notified?: Yes 06/25/20 10:25 Consult Physician Routine Consulting Provider: Larisa Marin Consult Reason/Comments: hypoglycemia Do you want consulting provider notified?: Yes Primary care physician: Zahida [facility] Course: This is a 84-year-old male with complex past medical history noted below who presented to the emergency room with worsening shortness of breath and dyspnea. Patient was evaluated in the ER and currently admitted to the hospital for further management of his medical problems noted below. Acute kidney injury likely secondary to cardiorenal/ATN -Cr improving 1.77 on the day of discharge -Discontinue hydrochlorothiazide, sulfonylurea, Mobic -Seen and evaluated by nephrology. Treated with IV dobutamine drip and IV Lasix during hospital stay. Transition to oral Lasix on discharge -No hydronephrosis on abdominal ultrasound -Follow up with nephrology and repeat BMP as directed Hypokalemia, continue daily potassium supplement Chronic Diarrhea - C diff, Stool culture, fecal lactoferrin/calprotectin - negative - GI recs: Bismuth as needed - C-scope unrevealing, follow up biopsies in the outpatient setting with GI DM 2 with prolonged hypoglycemia on presentation now resolved - Start SSI, tradjenta - Discontinue glyburide - A1C 5.9 in May - Diet controlled Systolic CHF with EF 35-40% - Cardio recs appreciated - Not on ACEI and will not start due to JANET - COREG, Lasix BPH - Doxyzosyn - Proscar HTN - Coreg HLD - Lovastatin and fish oil Patient will be discharged home in a stable condition. For further details about this hospitalization please refer to the electronic chart. Time spent on discharge > 30 minutes including counseling and coordination of Patient Condition at Discharge: Stable Plan - Discharge Summary Discharge Rx Participant: No New Discharge Prescriptions: New Bismuth Subsalicylate [Bismatrol] 524 mg PO TID PRN #240 ml PRN Reason: Diarrhea Potassium Chloride ER [K-Dur 20] 20 meq PO DAILY #30 tab.er.prt Furosemide [Lasix] 40 mg PO BID@0900,1600 #60 tab Continue Aspirin [Adult Low Dose Aspirin EC] 81 mg PO DAILY@1199,1999 Carvedilol [Coreg] 12.5 mg PO BID Finasteride [Proscar] 5 mg PO QAM Lovastatin [Mevacor] 20 mg PO DAILY@1200 [place]-3 Fatty Acids/Fish Oil [Fish Oil 1,000 mg Softgel] 1 cap PO Q48H Terazosin HCl [Hytrin] 10 mg PO HS Ubidecarenone [Co Q-10] 200 mg PO QAM Discontinued glyBURIDE [Diabeta] 2.5 mg PO Q48H hydroCHLOROthiazide [Hydrodiuril] 25 mg PO QAM Meloxicam [Mobic] 15 mg PO HS Discharge Medication List Aspirin [Adult Low Dose Aspirin EC] 81 mg PO DAILY@1199,199906/24/20 [History] Carvedilol [Coreg] 12.5 mg PO BID 06/24/20 [History] Finasteride [Proscar] 5 mg PO QAM 06/24/20 [History] Lovastatin [Mevacor] 20 mg PO DAILY@1200 06/24/20 [History] [place]-3 Fatty Acids/Fish Oil [Fish Oil 1,000 mg Softgel] 1 cap PO Q48H 06/24/20 [History] Terazosin HCl [Hytrin] 10 mg PO HS 06/24/20 [History] Ubidecarenone [Co Q-10] 200 mg PO QAM 06/24/20 [History] Bismuth Subsalicylate [Bismatrol] 524 mg PO TID PRN #240 ml 07/02/20 [Rx] Furosemide [Lasix] 40 mg PO BID@0900,1600 #60 tab 07/02/20 [Rx] Potassium Chloride ER [K-Dur 20] 20 meq PO DAILY #30 tab.er.prt 07/02/20 [Rx] Follow up Appointment(s)/Referral(s): [place] [NON-STAFF] - [facility] [NON-STAFF] - (Call [facility] for any questions involving your new walker. ) Zahida Buck MD [Primary Care Provider] - 1-2 days Diogenes Lyle MD [STAFF PHYSICIAN] - 2 Weeks Cayetano Guardado MD [STAFF PHYSICIAN] - 2 Weeks Activity/Diet/Wound Care/Special Instructions: [facility] will deliver rollator to bedside before discharge. Discharge Disposition: HOME SELF-CARE
[2020-07-02 11:38] VITALS: BP 137/60; PULSE 97; RESP 18; TEMP 97.9
[2020-07-02] MEDS ORDERED: FUROSEMIDE 40 MG TAB PO SCH (16:00)
== END 2020-07-02 12:06 | disposition home health service (06) | DRG 682 ==
LOC: EC 17:21 → 3SCARD 20:52 → 2SICU 06-25 11:31 → 3SCARD 06-26 14:45
PROVIDERS: ADMIT Internal Medicine; ATTEND Internal Medicine
PROC: 0DBG8ZX Excision of Left Large Intestine, Via Natural or Artificial Opening Endoscopic, Diagnostic (ICD-10-PCS; principal; 2020-06-30 07:30)
PROC: 0DBF8ZX Excision of Right Large Intestine, Via Natural or Artificial Opening Endoscopic, Diagnostic (ICD-10-PCS; principal; 2020-06-30 07:30)
DX: N17.0 Acute kidney failure with tubular necrosis (principal); I50.23 Acute on chronic systolic (congestive) heart failure; I13.0 Hypertensive heart and chronic kidney disease with heart failure and stage 1 through stage 4 chronic kidney disease, or unspecified chronic kidney disease; N18.30 Chronic kidney disease, stage 3 unspecified; I25.10 Atherosclerotic heart disease of native coronary artery without angina pectoris; E11.22 Type 2 diabetes mellitus with diabetic chronic kidney disease; D63.1 Anemia in chronic kidney disease; E78.5 Hyperlipidemia, unspecified; Z20.828 Contact with and (suspected) exposure to other viral communicable diseases; I87.2 Venous insufficiency (chronic) (peripheral); K57.30 Diverticulosis of large intestine without perforation or abscess without bleeding; E87.6 Hypokalemia; E11.649 Type 2 diabetes mellitus with hypoglycemia without coma; E66.9 Obesity, unspecified; K52.9 Noninfective gastroenteritis and colitis, unspecified; I25.5 Ischemic cardiomyopathy; E86.1 Hypovolemia; T38.3X5A Adverse effect of insulin and oral hypoglycemic [antidiabetic] drugs, initial encounter; T50.2X5A Adverse effect of carbonic-anhydrase inhibitors, benzothiadiazides and other diuretics, initial encounter; E11.65 Type 2 diabetes mellitus with hyperglycemia; N40.0 Benign prostatic hyperplasia without lower urinary tract symptoms; Z79.899 Other long term (current) drug therapy; Z95.5 Presence of coronary angioplasty implant and graft; Z95.1 Presence of aortocoronary bypass graft; Z87.891 Personal history of nicotine dependence; Z79.82 Long term (current) use of aspirin; Z79.84 Long term (current) use of oral hypoglycemic drugs; Z88.0 Allergy status to penicillin; Z90.49 Acquired absence of other specified parts of digestive tract; Z68.33 Body mass index [BMI] 33.0-33.9, adult; Z98.890 Other specified postprocedural states; Z95.810 Presence of automatic (implantable) cardiac defibrillator
CPT/HCPCS: 36415; 45380; 71045; 71046; 74018; 76700; 80048; 80053; 81001; 82024; 82533; 82550; 82570; 82728; 83540; 83550; 83605; 83630; 83690; 83735; 83880; 83993; 84100; 84156; 84484; 84550; 85025; 85027; 85610; 85730; 87045; 87046; 87086; 87324; 88305; 93005; 93306; 96361; 96374; 96375; 96376; 99291

== ENCOUNTER 2020-07-13 06:50 | Observation (INO) | payer MEDICARE, BC ==
--- NOTE | 2020-07-13 07:28 | ED ---
General Adult HPI - General Chief complaint: Weakness Stated complaint: Weakness Time Seen by Provider: 07/13/20 06:50 Source: patient, EMS, RN notes reviewed, old records reviewed Mode of arrival: EMS Limitations: physical limitation - History of Present Illness Initial comments: This is an 84-year-old male who presents emergency Department complaining of generalized weakness. Patient states she was unable to stand it was felt this morning. Patient states he did not injure himself going on other than some soreness in his arms. Patient states he has full range of motion of all his joints. Patient initially stated that he may have passed out but is able to recall falling to the ground and grabbing onto his and states he might of been only out for one second. Patient denies any tenderness. Patient denies any headache patient denies numbness weakness. Patient denies lightheadedness or dizziness currently. Patient states his legs both were too weak to hold him. Patient denies any chest pain palpitations difficulty breathing shortness of breath per patient denies any abdominal pain patient denies nausea vomiting diarrhea. Patient denies any recent fever chills or cough. Patient states he has a history of congestive heart failure as well as kidney failure - Related Data Home Medications Medication Instructions Recorded Confirmed Aspirin [Adult Low Dose Aspirin EC] 81 mg PO DAILY@1200,2000 06/24/20 06/24/20 Carvedilol [Coreg] 12.5 mg PO BID 06/24/20 06/24/20 Finasteride [Proscar] 5 mg PO QAM 06/24/20 06/24/20 Lovastatin [Mevacor] 20 mg PO DAILY@1200 06/24/20 06/24/20 [place]-3 Fatty Acids/Fish Oil [Fish 1 cap PO Q48H 06/24/20 06/24/20 Oil 1,000 mg Softgel] Terazosin HCl [Hytrin] 10 mg PO HS 06/24/20 06/24/20 Ubidecarenone [Co Q-10] 200 mg PO QAM 06/24/20 06/24/20 Previous Rx's Medication Instructions Recorded Bismuth Subsalicylate [Bismatrol] 524 mg PO TID PRN #240 ml 07/02/20 Furosemide [Lasix] 40 mg PO BID@0900,1600 #60 tab 07/02/20 Potassium Chloride ER [K-Dur 20] 20 meq PO DAILY #30 tab.er.prt 07/02/20 Allergies Allergy/AdvReac Type Severity Reaction Status Date / Time Penicillins Allergy Rash/Hives Verified 07/13/20 06:57 Review of Systems ROS Statement: Those systems with pertinent positive or pertinent negative responses have been documented in the HPI. ROS Other: All systems not noted in ROS Statement are negative. Past Medical History Past Medical History: Heart Failure, Diabetes Mellitus, Hyperlipidemia, Hypertension Additional Past Medical History / Comment(s): CABG, EF 20-25 present in past, 13 heart caths, 9 stents. pacer/defib 2014. History of Any Multi-Drug Resistant Organisms: None Reported Past Surgical History: Appendectomy, Cholecystectomy Past Anesthesia/Blood Transfusion Reactions: No Reported Reaction Past Psychological History: No Psychological Hx Reported Smoking Status: Former smoker Past Alcohol Use History: None Reported Past Drug Use History: None Reported General Exam - General Exam Comments Initial Comments: GENERAL: Patient is well-developed and well-nourished. Patient is nontoxic and well- hydrated and is in no acute distress. ENT: Neck is soft and supple. No significant lymphadenopathy is noted. Oropharynx is clear. Moist mucous membranes. Neck has full range of motion without eliciting any pain. EYES: The sclera were anicteric and conjunctiva were pink and moist. Extraocular movements were intact and pupils were equal round and reactive to light. Eyelids were unremarkable. PULMONARY: Unlabored respirations. Good breath sounds bilaterally. No audible rales rhonchi or wheezing was noted. CARDIOVASCULAR: There is a regular rate and rhythm without any murmurs gallops or rubs. ABDOMEN: Soft and nontender with normal bowel sounds. No palpable organomegaly was noted. There is no palpable pulsatile mass. SKIN: Skin is clear with no lesions or rashes and otherwise unremarkable. NEUROLOGIC: Patient is alert and oriented x3. Cranial nerves II through XII are grossly intact. Motor and sensory are also intact. Normal speech, volume and content. Symmetrical smile. MUSCULOSKELETAL: Normal extremities with adequate strength and full range of motion. No lower extremity swelling or edema. No calf tenderness. LYMPHATICS: No significant lymphadenopathy is noted PSYCHIATRIC: Normal psychiatric evaluation. Limitations: physical limitation Course Vital Signs 07/13/20 07/13/20 07/13/20 06:51 07:43 08:13 Temperature 98.9 F Pulse Rate 53 L 67 Pulse Rate [ 61 Sitting] Pulse Rate [ 76 Standing] Pulse Rate [ 60 Supine] Respiratory 16 18 Rate Blood Pressure 139/94 125/64 Blood Pressure 123/44 [Sitting] Blood Pressure 146/55 [Supine] O2 Sat by Pulse 97 98 Oximetry Medical Decision Making - Medical Decision Making EKG shows ventricular paced rhythm at 73 bpm QRS is 140 QT interval 46 QTC is 535. Patient's EKG shows no ST segment elevation or depression. - Lab Data Result diagrams: 07/13/20 07:07 07/13/20 07:07 Lab Results 07/13/20 07/13/20 07/13/20 Range/Units 07:07 07:07 07:07 WBC 19.6 H (3.8-10.6) k/uL RBC 4.43 (4.30-5.90) m/uL Hgb 11.3 L (13.0-17.5) gm/dL Hct 36.7 L (39.0-53.0) % MCV 82.8 (80.0-100.0) fL MCH 25.5 (25.0-35.0) pg MCHC 30.8 L (31.0-37.0) g/dL RDW 13.3 (11.5-15.5) % Plt Count 228 (150-450) k/uL Neutrophils % 82 % Lymphocytes % 12 % Monocytes % 5 % Eosinophils % 1 % Basophils % 0 % Neutrophils # 16.0 H (1.3-7.7) k/uL Lymphocytes # 2.3 (1.0-4.8) k/uL Monocytes # 0.9 (0-1.0) k/uL Eosinophils # 0.2 (0-0.7) k/uL Basophils # 0.0 (0-0.2) k/uL Hypochromasia Slight PT 11.4 (9.0-12.0) sec INR 1.1 (<1.2) APTT 22.7 (22.0-30.0) sec Sodium 136 L (137-145) mmol/L Potassium 4.9 (3.5-5.1) mmol/L Chloride 99 (98-107) mmol/L Carbon Dioxide 31 H (22-30) mmol/L Anion Gap 6 mmol/L BUN 46 H (9-20) mg/dL Creatinine 1.67 H (0.66-1.25) mg/dL Est GFR (CKD-EPI)AfAm 43 (>60 ml/min/1.73 sqM) Est GFR (CKD-EPI)NonAf 37 (>60 ml/min/1.73 sqM) Glucose 188 H (74-99) mg/dL Plasma Lactic Acid [place] (0.7-2.0) mmol/L Calcium 8.8 (8.4-10.2) mg/dL Magnesium 1.9 (1.6-2.3) mg/dL Total Bilirubin 1.2 (0.2-1.3) mg/dL AST 31 (17-59) U/L ALT 13 (4-49) U/L Alkaline Phosphatase 44 (38-126) U/L Troponin I (0.000-0.034) ng/mL Total Protein 6.4 (6.3-8.2) g/dL Albumin 3.3 L (3.5-5.0) g/dL Urine Color Urine Appearance (Clear) Urine pH (5.0-8.0) Ur Specific [place] (1.001-1.035) Urine Protein (Negative) Urine Glucose (UA) (Negative) Urine Ketones (Negative) Urine Blood (Negative) Urine Nitrite (Negative) Urine Bilirubin (Negative) Urine Urobilinogen (<2.0) mg/dL Ur Leukocyte Esterase (Negative) Urine RBC (0-5) /hpf Urine WBC (0-5) /hpf Ur Squamous Epith Cells (0-4) /hpf Urine Bacteria (None) /hpf Hyaline Casts (0-2) /lpf Urine Mucus (None) /hpf 07/13/20 07/13/20 07/13/20 Range/Units 07:07 07:07 07:53 WBC (3.8-10.6) k/uL RBC (4.30-5.90) m/uL Hgb (13.0-17.5) gm/dL Hct (39.0-53.0) % MCV (80.0-100.0) fL MCH (25.0-35.0) pg MCHC (31.0-37.0) g/dL RDW (11.5-15.5) % Plt Count (150-450) k/uL Neutrophils % % Lymphocytes % % Monocytes % % Eosinophils % % Basophils % % Neutrophils # (1.3-7.7) k/uL Lymphocytes # (1.0-4.8) k/uL Monocytes # (0-1.0) k/uL Eosinophils # (0-0.7) k/uL Basophils # (0-0.2) k/uL Hypochromasia PT (9.0-12.0) sec INR (<1.2) APTT (22.0-30.0) sec Sodium (137-145) mmol/L Potassium (3.5-5.1) mmol/L Chloride (98-107) mmol/L Carbon Dioxide (22-30) mmol/L Anion Gap mmol/L BUN (9-20) mg/dL Creatinine (0.66-1.25) mg/dL Est GFR (CKD-EPI)AfAm (>60 ml/min/1.73 sqM) Est GFR (CKD-EPI)NonAf (>60 ml/min/1.73 sqM) Glucose (74-99) mg/dL Plasma Lactic Acid [place] 1.8 (0.7-2.0) mmol/L Calcium (8.4-10.2) mg/dL Magnesium (1.6-2.3) mg/dL Total Bilirubin (0.2-1.3) mg/dL AST (17-59) U/L ALT (4-49) U/L Alkaline Phosphatase (38-126) U/L Troponin I <0.012 (0.000-0.034) ng/mL Total Protein (6.3-8.2) g/dL Albumin (3.5-5.0) g/dL Urine Color Yellow Urine Appearance Cloudy (Clear) Urine pH 5.0 (5.0-8.0) Ur Specific [place] 1.016 (1.001-1.035) Urine Protein Negative (Negative) Urine Glucose (UA) Negative (Negative) Urine Ketones Negative (Negative) Urine Blood Negative (Negative) Urine Nitrite Negative (Negative) Urine Bilirubin Negative (Negative) Urine Urobilinogen <2.0 (<2.0) mg/dL Ur Leukocyte Esterase Trace H (Negative) Urine RBC 1 (0-5) /hpf Urine WBC 6 H (0-5) /hpf Ur Squamous Epith Cells 4 (0-4) /hpf Urine Bacteria Rare H (None) /hpf Hyaline Casts 1 (0-2) /lpf Urine Mucus Rare H (None) /hpf Disposition Clinical Impression: Generalized weakness, Near syncope, Orthostatic hypotension Disposition: ADMITTED IP TO THIS HOSP Referrals: Zahida Buck MD [Primary Care Provider] - 1-2 days Time of Disposition: 08:38
--- NOTE | 2020-07-13 07:33 | XR ---
EXAMINATION TYPE: XR chest 2V DATE OF EXAM: 07/13/2020 COMPARISON: 06/30/2020 INDICATION: Weakness, passed out TECHNIQUE: Frontal and lateral views of the chest are obtained. FINDINGS: The heart size is enlarged. The pulmonary vasculature is normal. The lungs are clear. Pacemaker overlies the left chest. IMPRESSION: 1. Cardiomegaly.
[2020-07-13 07:34] LABS: Albumin 3.3 g/dL (3.5-5.0); Calcium 8.8 mg/dL (8.4-10.2); Magnesium 1.9 mg/dL (1.6-2.3); Total Bilirubin 1.2 mg/dL (0.2-1.3); Total Protein 6.4 g/dL (6.3-8.2)
[2020-07-13 07:35] LABS: Potassium 4.9 mmol/L (3.5-5.1)
[2020-07-13] MEDS ORDERED: SODIUM CHLORIDE 0.9% 500 ML 500 ML IV ONE (07:40)
[2020-07-13 07:45] LABS: INR 1.1 (<1.2); Partial Thromboplastin Time 22.7 sec (22.0-30.0); Prothrombin Time 11.4 sec (9.0-12.0)
[2020-07-13 07:57] LABS: Basophils % (A) 0 %; Eosinophils # (A) 0.2 k/uL (0-0.7); Eosinophils % (A) 1 %; HCT 36.7 % (39.0-53.0); HGB 11.3 gm/dL (13.0-17.5); Hypochromasia Slight; Lymphocytes # (A) 2.3 k/uL (1.0-4.8); Lymphocytes % (A) 12 %; MCH 25.5 pg (25.0-35.0); MCHC 30.8 g/dL (31.0-37.0); MCV 82.8 fL (80.0-100.0); Monocytes # (A) 0.9 k/uL (0-1.0); Monocytes % (A) 5 %; Neutrophils % (A) 82 %; Platelet Count 228 k/uL (150-450); RBC 4.43 m/uL (4.30-5.90); RDW 13.3 % (11.5-15.5); WBC 19.6 k/uL (3.8-10.6)
[2020-07-13 08:34] LABS: Appearance,Urine Cloudy (Clear); Bacteria,Urine Rare /hpf; Bilirubin,Urine Negative (Negative); Blood,Urine Negative (Negative); Color,Urine Yellow; Glucose,Urine (UA) Negative (Negative); Hyaline Casts,Urine 1 /lpf (0-2); Ketones,Urine Negative (Negative); Leukocyte Esterase,Urine Trace (Negative); Mucus,Urine Rare /hpf; Nitrite,Urine Negative (Negative); Protein,Urine Negative (Negative); RBC,Urine 1 /hpf (0-5); Specific Gravity,Urine 1.016 (1.001-1.035); Squamous Epithelial Cell,Urine 4 /hpf (0-4); Urobilinogen,Urine <2.0 mg/dL (<2.0); WBC,Urine 6 /hpf (0-5)
[2020-07-13] MEDS ORDERED: SODIUM CHLORIDE 0.9% 1,000 ML IV ONE (08:49)
[2020-07-13] MEDS ORDERED: BISMUTH SUBSALICYLATE 4,192 MG/240 ML BOTTLE PO PRN (10:23)
[2020-07-13] MEDS ORDERED: NON FORMULARY DRUG (Ubidecarenone [Co Q-10] 100 MG Capsule) PO SCH (10:30)
--- NOTE | 2020-07-13 10:55 | P.HPIM ---
History of Present Illness H&P Date: 07/13/20 Chief Complaint: Syncope Patient is a 84-year-old male with a significant past medical history of chronic systolic heart failure with an EF of 35-40%, CK D stage III and diabetes type 2 who presents to the ED after 2 episodes of syncope. Patient was recently admit [facility] and treated for acute on chronic systolic heart failure as well as acute kidney injury on chronic kidney injury due to cardiorenal syndrome. He was discharged on Lasix 40 mg by mouth twice a day. Patient was told that he should also restrict his fluid intake so patient states that he has been drinking about 40 ounces a day (1.2 L). Patient states that when he was discharged he was doing well however he noticed that he was getting dehydrated and also his weight was decreasing. He states that he had to wet his mouth in order to talk. Patient states that today when he went to the bathroom he passed out while sitting on the toilet. He states that he was not having a bowel movement. P atient denies any chest pain prior to passing out. He also denies any tongue bite or postictal confusion. Patient states that his then helped him to sit on his walker that has a seat. He states that he passed out again similar to his previous episode of syncope. Patient states that he was then not able to get up and his legs felt weak. EMS was called and they brought him to the ED. In the ED patient's creatinine was 1.67 which is around his baseline. Patient's WBC count was 19. Patient's vital signs indicated severe orthostatic hypotension. Per ED physician his systolic pressure when he stood up was in the 40s. Review of Systems 10 ROS reviewed and are negative except as noted in HPI Past Medical History Past Medical History: Heart Failure, Diabetes Mellitus, Hyperlipidemia, Hypertension Additional Past Medical History / Comment(s): CABG, EF 20-25 present in past, 13 heart caths, 9 stents. pacer/defib 2013. History of Any Multi-Drug Resistant Organisms: None Reported Past Surgical History: Appendectomy, Cholecystectomy Past Anesthesia/Blood Transfusion Reactions: No Reported Reaction Past Psychological History: No Psychological Hx Reported Smoking Status: Former smoker Past Alcohol Use History: None Reported Past Drug Use History: None Reported Medications and Allergies Home Medications Medication Instructions Recorded Confirmed Type Aspirin [Adult Low Dose Aspirin EC] 81 mg PO DAILY@1200,2000 06/24/20 07/13/20 History Carvedilol [Coreg] 12.5 mg PO BID 06/24/20 07/13/20 History Finasteride [Proscar] 5 mg PO QAM 06/24/20 07/13/20 History Lovastatin [Mevacor] 20 mg PO DAILY@1200 06/24/20 07/13/20 History [place]-3 Fatty Acids/Fish Oil [Fish 1 cap PO Q48H 06/24/20 07/13/20 History Oil 1,000 mg Softgel] Terazosin HCl [Hytrin] 10 mg PO HS 06/24/20 07/13/20 History Ubidecarenone [Co Q-10] 200 mg PO QAM 06/24/20 07/13/20 History Bismuth Subsalicylate [Bismatrol] 524 mg PO TID PRN #240 ml 07/02/20 07/13/20 Rx Furosemide [Lasix] 40 mg PO BID@0900,1600 #60 tab 07/02/20 07/13/20 Rx Potassium Chloride ER [K-Dur 20] 20 meq PO DAILY #30 tab.er.prt 07/02/20 07/13/20 Rx Allergies Allergy/AdvReac Type Severity Reaction Status Date / Time Penicillins Allergy Rash/Hives Verified 07/13/20 10:43 Physical Exam Osteopathic Statement: *. No significant issues noted on an osteopathic structural exam other than those noted in the History and Physical/Consult. Vitals: Vital Signs Temp Pulse Pulse Pulse Pulse Pulse Resp 07/13/20 10:33 98 F 62 16 07/13/20 10:02 68 18 07/13/20 09:33 68 18 07/13/20 08:13 67 18 07/13/20 07:43 61 76 60 07/13/20 06:51 98.9 F 53 L 16 BP BP BP BP Pulse Ox 07/13/20 10:33 151/53 99 07/13/20 10:02 125/52 98 07/13/20 09:33 144/56 98 07/13/20 08:13 125/64 98 07/13/20 07:43 123/44 146/55 07/13/20 06:51 139/94 97 Intake and Output 07/12/20 07/13/20 07/13/20 23:59 06:59 14:59 Other: Weight General: [Alert and oriented, well nourished, no acute distress]. Eye: [PERRL, EOMI, normal conjunctiva]. HENT: [Normocephalic, clear tympanic membranes, normal hearing, dry oral mucosa, no scleral icterus, no sinus tenderness]. Neck: [Supple, non-tender, no carotid bruits, no JVD, no lymphadenopathy]. Lungs: [Clear to auscultation and percussion, non-labored respiration]. Heart: [Normal rate, regular rhythm, no murmur, gallop or edema]. Abdomen: [Soft, non-tender, non-distended, normal bowel sounds, no masses]. Musculoskeletal: [Normal range of motion and strength, no tenderness or swelling]. Skin: [Skin is warm, dry and pink, no rashes or lesions]. Neurologic: [Awake, alert, and oriented X3, CN II-XII intact]. Psychiatric: [Cooperative, appropriate mood and affect]. Results CBC & Chem 7: 07/13/20 07:07 07/13/20 07:07 Labs: Abnormal Lab Results - Last 24 Hours (Table) 07/13/20 07/13/20 07/13/20 Range/Units 07:07 07:07 07:53 WBC 19.6 H (3.8-10.6) k/uL Hgb 11.3 L (13.0-17.5) gm/dL Hct 36.7 L (39.0-53.0) % MCHC 30.8 L (31.0-37.0) g/dL Neutrophils # 16.0 H (1.3-7.7) k/uL Sodium 136 L (137-145) mmol/L Carbon Dioxide 31 H (22-30) mmol/L BUN 46 H (9-20) mg/dL Creatinine 1.67 H (0.66-1.25) mg/dL Glucose 188 H (74-99) mg/dL Albumin 3.3 L (3.5-5.0) g/dL Ur Leukocyte Esterase Trace H (Negative) Urine WBC 6 H (0-5) /hpf Urine Bacteria Rare H (None) /hpf Urine Mucus Rare H (None) /hpf Assessment and Plan Assessment: #Syncope 2 likely due to orthostatic hypotension from diuretics -Patient recently discharged on Lasix 40 mg by mouth twice a day. -Patient severely orthostatic hypotensive in the ED -Hold Lasix, Coreg and Terazosin -Gentle IV fluids. We'll need to monitor patient cautiously due to heart failure and recent admission for acute or chronic systolic heart failure with the patient was treated with IV Lasix and dobutamine drip. -PT and OT consult -Cardiology consult to adjust diuretics as well as BP medication. -Orthostatic blood pressure every shift #Leukocytosis -Patient has no signs or symptoms of infection -Likely reactive from syncope -Monitor CBC #CK D stage III -Patient previously was discharged with a creatinine of 1.77. On admission creatinine is 1.67 so patient is close to his baseline. -Monitor BMP. #Diabetes type 2 -Patient recently had his oral diabetic meds discontinued due to hypoglycemia -Hemoglobin A1c in May was 5.9. -Sliding-scale insulin for now and will also recheck hemoglobin A1c. To consider starting diabetic med at discharge if patient is hyperglycemic during hospitalization. #Chronic systolic heart failure with EF of 35-40% -Holding beta aurelio due to orthostatic hypotension. Not on FRANTZ inhibitor due to renal failure. -Chest x-ray shows no pulmonary edema or pleural effusion -Patient has no lower extremity edema and denies shortness of breath -Hold Lasix for now (see above). -May need to adjust diuretics at discharge. Cardiology consult -Patient currently euvolemic. #BPH -Resume finasteride. Holding Terazosin #Hypertension -Holding BP meds due to the above #Hyperlipidemia -Resume statin CODE STATUS: DNR/DNI DVT prophylaxis: Subcu heparin Discussed with: Patient, ER, rn DPOA: and son Anticipated length of stay < than [address]: home A total of 75 minutes was spent on the care of this complex patient more than 50% of the time was spent in counseling and care coordination.
[2020-07-13 12:05] LABS: Glucose,Whole Blood 163 mg/dL (75-99)
[2020-07-13] MEDS: ASPIRIN 81 MG PO SCH ×2 (13:10→20:46)
[2020-07-13] MEDS: ATORVASTATIN 10 MG TAB PO SCH (13:11)
[2020-07-13] MEDS: FINASTERIDE 5 MG TAB PO SCH (13:11)
[2020-07-13] MEDS: INSULIN ASPART (NovoLOG) 100 UNIT/ML VIAL SQ SCH ×3 (13:12→20:46)
[2020-07-13] MEDS: HEPARIN SODIUM,PORCINE 5,000 UNIT/ML 1 ML VIAL SQ SCH ×2 (15:51→23:59)
[2020-07-13 17:16] LABS: Glucose,Whole Blood 155 mg/dL (75-99)
[2020-07-13] MEDS ORDERED: ACETAMINOPHEN TAB 325 MG TAB PO PRN (17:31)
--- NOTE | 2020-07-13 18:54 | XR ---
EXAMINATION TYPE: XR knee 4V LT DATE OF EXAM: 07/13/2020 CLINICAL HISTORY: Fall at home with pain and bruising. TECHNIQUE: Three views of the left knee are obtained. Fourth sunrise view. COMPARISON: None. FINDINGS: There is no acute fracture/dislocation evident in left knee. [id number] narrowing with mild spurring patellofemoral compartment. Patellar articulation satisfactory and sunrise view. Surgical clips from posterior medial venous harvesting procedure are noted. Deeper arterial vascular calcifications. IMPRESSION: There is no acute fracture or dislocation in the left knee.
[2020-07-13 20:43] LABS: Glucose,Whole Blood 185 mg/dL (75-99)
[2020-07-14 07:00] LABS: Basophils % (A) 0 %; Eosinophils # (A) 0.1 k/uL (0-0.7); Eosinophils % (A) 1 %; HCT 34.2 % (39.0-53.0); HGB 10.6 gm/dL (13.0-17.5); Hypochromasia Moderate; Lymphocytes # (A) 2.1 k/uL (1.0-4.8); Lymphocytes % (A) 15 %; MCH 26.2 pg (25.0-35.0); MCHC 30.9 g/dL (31.0-37.0); MCV 84.7 fL (80.0-100.0); Mean Platelet Volume 7.3; Monocytes # (A) 0.7 k/uL (0-1.0); Monocytes % (A) 6 %; Neutrophils # (A) 10.3 k/uL (1.3-7.7); Neutrophils % (A) 76 %; Platelet Count 228 k/uL (150-450); RBC 4.04 m/uL (4.30-5.90); RDW 13.5 % (11.5-15.5); WBC 13.5 k/uL (3.8-10.6)
[2020-07-14 07:04] LABS: Glucose,Whole Blood 139 mg/dL (75-99)
[2020-07-14] MEDS: INSULIN ASPART (NovoLOG) 100 UNIT/ML VIAL SQ SCH ×4 (07:06→23:44)
[2020-07-14 07:21] LABS: Calcium 8.2 mg/dL (8.4-10.2); Magnesium 1.9 mg/dL (1.6-2.3); Potassium 3.9 mmol/L (3.5-5.1)
[2020-07-14] MEDS: FINASTERIDE 5 MG TAB PO SCH (09:52)
[2020-07-14] MEDS: carvediloL 3.125 MG TAB PO SCH ×2 (09:52→18:15)
[2020-07-14] MEDS: FUROSEMIDE 40 MG TAB PO SCH (09:52)
[2020-07-14] MEDS: HEPARIN SODIUM,PORCINE 5,000 UNIT/ML 1 ML VIAL SQ SCH ×3 (09:52→23:53)
--- NOTE | 2020-07-14 10:29 | P.CRDCN ---
History of Present Illness History of present illness: HISTORY OF PRESENTING ILLNESS This is a pleasant 84-year-old male past medical history significant for coronary artery disease status post four-vessel bypass grafting in 2009, ischemic cardiomyopathy status post AICD 2013, hypertension, dyslipidemia, diabetes mellitus and chronic systolic heart failure. He follows in the office with Dr. Cade. We have been asked to see in consultation for hypotension. He states when he stands up he becomes dizzy and light headed. He states he fell at home secondary to increased weakness and feeling lightheaded. He does not think he actually lost consciousness however his thinks that he was momentarily. He denies symptoms of chest pain, shortness of breath or palpitations. Vital signs obtained reveal he did have significant orthostatic changes. Standing blood pressure was 79/49. He was given IV fluid hydration. Repeat vital signs this morning reveal a supine blood pressure 142/69 and standing 106/56. DIAGNOSTICS EKG reveals bi-ventricular paced rhythm. Chest xray today for an acute cardiopulmonary process. Laboratory reviewed, WBC 13.5 down from 19.6 on admission, hemoglobin 10.6, platelets 228, sodium 139, potassium 3.9, creatinine 1.47 and magnesium 1.9, troponin negative 1. Current cardiac medications include aspirin 81 mg twice a day, carvedilol 12.5 mg twice a day, Lasix 40 mg twice a day, lovastatin 20 mg daily and Terazol 7 10 mg at bedtime. Most recent echocardiogram obtained June 2020 revealed impaired LV systolic function with ejection fraction 35-40%, basal inferior and mid inferior wall motion hypokinesia, mild aortic stenosis with a mean gradient of 16 mmHg and mild mitral regurgitation. REVIEW OF SYSTEMS At the time of my exam: CONSTITUTIONAL: Denies fever or chills. CARDIOVASCULAR: Denies chest pain, shortness of breath, orthopnea, PND or palpitations. RESPIRATORY: Denies cough. GASTROINTESTINAL: Denies abdominal pain, diarrhea, constipation, nausea or vomiting. MUSCULOSKELETAL: Denies myalgias. NEUROLOGIC: Denies numbness, tingling or weakness. ENDOCRINE: Denies fatigue, weight change, polydipsia or polyurina. GENITOURINARY: Denies burning, hematuria or urgency with micturation. HEMATOLOGIC: Denies history of anemia or bleeding. PHYSICAL EXAMINATION CONSTITUTIONAL: No apparent distress. HEENT: Head is normocephalic. Pupils are equal, round. Sclerae anicteric. Mucous membranes of the mouth are moist. No JVD. No carotid bruit. CHEST EXAMINATION: Lungs are clear to auscultation. No chest wall tenderness is noted on palpation or with deep breathing. HEART EXAMINATION: Regular rate and rhythm. S1, S2 heard. Systolic ejection murmur at the left sternal border, no gallops or rub. ABDOMEN: Soft, nontender. Positive bowel sounds. EXTREMITIES: 2+ peripheral pulses, no lower extremity edema and no calf tenderness. NEUROLOGIC EXAMINATION: Patient is awake, alert and oriented x3. ASSESSMENT Orthostatic hypotension Generalized weakness and fall, likely secondary to orthostatic changes Ischemic cardiomyopathy Chronic systolic heart failure, clinically euvolemic Hypertension Dyslipidemia Coronary artery disease s/p bypass grafting Diabetes mellitus PLAN Decrease aspirin to 81 mg daily, coreg to 3.125 mg BID and lasix 40 mg daily. Hold hytrin. Add small dose of midodrine 5 mg TID. Continue to monitor orthostatic vital signs q-shift. We will continue to follow and make recommendations accordingly. Thank you kindly for this consultation. Nurse Practitioner note has been reviewed, I agree with a documented findings and plan of care. Patient was seen and examined. Past Medical History Past Medical History: Heart Failure, Diabetes Mellitus, Hyperlipidemia, Hypertension, Syncope Additional Past Medical History / Comment(s): CABG, EF 20-25 present in past, 13 heart caths, 9 stents. pacer/defib 2013. 07/13/20 passed out at home History of Any Multi-Drug Resistant Organisms: None Reported Past Surgical History: AICD, Appendectomy, Cholecystectomy, Coronary Bypass/CABG, Heart Catheterization, Heart Catheterization With Stent Past Anesthesia/Blood Transfusion Reactions: No Reported Reaction Date of Last Stent Placement:: 2009 Type of Cardiac Device: Biventricular Pacemaker Device Placement Date:: 2013 Past Psychological History: No Psychological Hx Reported Smoking Status: Former smoker Past Alcohol Use History: None Reported Past Drug Use History: None Reported - Past Family History Mother Family Medical History: Cancer Father Family Medical History: Myocardial Infarction (NH) Medications and Allergies Home Medications Medication Instructions Recorded Confirmed Type Aspirin [Adult Low Dose Aspirin EC] 81 mg PO DAILY@1200,2000 06/24/20 07/13/20 History Carvedilol [Coreg] 12.5 mg PO BID 06/24/20 07/13/20 History Finasteride [Proscar] 5 mg PO QAM 06/24/20 07/13/20 History Lovastatin [Mevacor] 20 mg PO DAILY@1200 06/24/20 07/13/20 History [place]-3 Fatty Acids/Fish Oil [Fish 1 cap PO Q48H 06/24/20 07/13/20 History Oil 1,000 mg Softgel] Terazosin HCl [Hytrin] 10 mg PO HS 06/24/20 07/13/20 History Ubidecarenone [Co Q-10] 200 mg PO QAM 06/24/20 07/13/20 History Bismuth Subsalicylate [Bismatrol] 524 mg PO TID PRN #240 ml 07/02/20 07/13/20 Rx Furosemide [Lasix] 40 mg PO BID@0900,1600 #60 tab 07/02/20 07/13/20 Rx Potassium Chloride ER [K-Dur 20] 20 meq PO DAILY #30 tab.er.prt 07/02/20 07/13/20 Rx Allergies Allergy/AdvReac Type Severity Reaction Status Date / Time Penicillins Allergy Rash/Hives Verified 07/13/20 10:43 Physical Exam Vitals: Vital Signs Temp Pulse Pulse Pulse Pulse Resp BP 07/14/20 09:00 98.2 F 60 67 69 58 L 16 07/14/20 02:59 60 60 07/14/20 02:58 98.1 F 60 116/55 07/13/20 20:35 98.1 F 60 67 67 60 115/60 07/13/20 20:20 60 67 67 60 07/13/20 15:00 97.9 F 64 16 125/67 07/13/20 10:33 98 F 62 16 151/53 BP BP BP Pulse Ox 07/14/20 09:00 106/56 142/69 97 07/14/20 02:59 07/14/20 02:58 97 07/13/20 20:35 91/52 79/49 115/60 96 07/13/20 20:20 07/13/20 15:00 96 07/13/20 10:33 99 Intake and Output 07/13/20 07/14/20 07/14/20 22:59 06:59 14:59 Intake Total 625 0 0 Output Total 150 425 Balance 475 -425 0 Intake: IV 225 Sodium Chloride 0.9% 500 225 ml 500 ml @ 999 mls/hr IV .Q31M ONE Rx#:[id number] Oral 400 0 0 Output: Urine 150 425 Other: Voiding Method Urinal Urinal Urinal # Voids 1 1 Weight 98.5 kg Results 07/14/20 06:38 07/14/20 06:38 CBC 07/14/20 Range/Units 06:38 WBC 13.5 H (3.8-10.6) k/uL RBC 4.04 L (4.30-5.90) m/uL Hgb 10.6 L (13.0-17.5) gm/dL Hct 34.2 L (39.0-53.0) % Plt Count 228 (150-450) k/uL Comprehensive Metabolic Panel 07/14/20 Range/Units 06:38 Sodium 139 (137-145) mmol/L Potassium 3.9 (3.5-5.1) mmol/L Chloride 104 (98-107) mmol/L Carbon Dioxide 31 H (22-30) mmol/L BUN 37 H (9-20) mg/dL Creatinine 1.47 H (0.66-1.25) mg/dL Glucose 143 H (74-99) mg/dL Calcium 8.2 L (8.4-10.2) mg/dL Current Medications Generic Name Dose Route Start Last Admin Trade Name Freq PRN Reason Stop Dose Admin Acetaminophen 650 mg 07/13/20 17:31 07/13/20 17:43 Acetaminophen Tab 325 Mg Tab PO 650 mg Q6HR PRN Administration Fever and/ or Pain Aspirin 81 mg 07/13/20 12:00 07/13/20 20:46 Aspirin 81 Mg PO 81 mg BID@1200,2000 KRISTOPHER Administration Atorvastatin Calcium 10 mg 07/13/20 12:00 07/13/20 13:11 Atorvastatin 10 Mg Tab PO 10 mg DAILY@1200 [facility] Administration Bismuth Subsalicylate 524 mg 07/13/20 10:23 Bismuth Subsalicylate 4,192 Mg/240 Ml Bottle PO TID PRN Diarrhea Carvedilol 3.125 mg 07/14/20 09:00 07/14/20 09:52 Carvedilol 3.125 Mg Tab PO 3.125 mg BID-W/MEALS KRISTOPHER Administration Finasteride 5 mg 07/13/20 10:45 07/14/20 09:52 Finasteride 5 Mg Tab PO 5 mg QAM KRISTOPHER Administration Furosemide 40 mg 07/14/20 09:00 07/14/20 09:52 Furosemide 40 Mg Tab PO 40 mg DAILY KRISTOPHER Administration Heparin Sodium (Porcine) 5,000 unit 07/13/20 16:00 07/14/20 09:52 Heparin Sodium,Porcine 5,000 Unit/Ml 1 Ml Vial SQ 5,000 unit Q8HR KRISTOPHER Administration Insulin Aspart 0 unit 07/13/20 12:30 07/14/20 07:06 Insulin Aspart (Novolog) 100 Unit/Ml Vial SQ 1 unit ACHS KRISTOPHER Administration Protocol Midodrine 5 mg 07/14/20 12:30 Midodrine 5 Mg Tab PO AC-TID KRISTOPHER Intake and Output 07/13/20 07/14/20 07/14/20 22:59 06:59 14:59 Intake Total 625 0 0 Output Total 150 425 Balance 475 -425 0 Intake: IV 225 Sodium Chloride 0.9% 500 225 ml 500 ml @ 999 mls/hr IV .Q31M ONE Rx#:[id number] Oral 400 0 0 Output: Urine 150 425 Other: Voiding Method Urinal Urinal Urinal # Voids 1 1 Weight 98.5 kg 07/14/20 06:38 07/14/20 06:38
--- NOTE | 2020-07-14 11:41 | P.PN ---
Subjective Progress Note Date: 07/14/20 No new complaints. pt reports feeling much better, no longer dizzy on sitting/standing. Pending PT/OT evaluation Objective - Vital Signs Vital signs: Vital Signs Temp 98.2 F 07/14/20 09:00 Pulse 58 L 07/14/20 09:00 Resp 16 07/14/20 09:00 BP 142/69 07/14/20 09:00 Pulse Ox 97 07/14/20 09:00 Intake & Output 07/13/20 07/14/20 07/14/20 18:59 06:59 18:59 Intake Total 1000 225 0 Output Total 250 575 Balance 750 -350 0 Weight 92.533 kg 98.5 kg Intake: IV 500 225 Sodium Chloride 0.9% 500 500 225 ml 500 ml @ 999 mls/hr IV .Q31M ONE Rx#:[id number] Oral 500 0 0 Output: Urine 250 575 Other: Voiding Method Urinal Urinal Urinal # Voids 1 - Exam Gen: awake, alert HEENT: normocephalic, atraumatic, good hearing acuity, moist mucous membranes Resp: CTAB, good air exchange, no accessory muscle use, no wheezes, crackles, rhonchi CVS: good distal perfusion x 4, RRR, no murmurs, clicks, gallops GI: soft, NTTP, ND : no SPT, no CVAT, mayfield catheter not present MSK: no pitting edema, no clubbing Neuro: non-focal, no sensory deficits, appropriate tone Psych: cooperative, euthymic mood - Labs CBC & Chem 7: 07/14/20 06:38 07/14/20 06:38 Labs: Abnormal Lab Results - Last 24 Hours (Table) 07/13/20 07/13/20 07/13/20 Range/Units 12:03 17:14 20:42 WBC (3.8-10.6) k/uL RBC (4.30-5.90) m/uL Hgb (13.0-17.5) gm/dL Hct (39.0-53.0) % MCHC (31.0-37.0) g/dL Neutrophils # (1.3-7.7) k/uL Carbon Dioxide (22-30) mmol/L BUN (9-20) mg/dL Creatinine (0.66-1.25) mg/dL Glucose (74-99) mg/dL POC Glucose (mg/dL) 163 H 155 H 185 H (75-99) mg/dL Calcium (8.4-10.2) mg/dL 07/14/20 07/14/20 07/14/20 Range/Units 06:38 06:38 07:03 WBC 13.5 H (3.8-10.6) k/uL RBC 4.04 L (4.30-5.90) m/uL Hgb 10.6 L (13.0-17.5) gm/dL Hct 34.2 L (39.0-53.0) % MCHC 30.9 L (31.0-37.0) g/dL Neutrophils # 10.3 H (1.3-7.7) k/uL Carbon Dioxide 31 H (22-30) mmol/L BUN 37 H (9-20) mg/dL Creatinine 1.47 H (0.66-1.25) mg/dL Glucose 143 H (74-99) mg/dL POC Glucose (mg/dL) 139 H (75-99) mg/dL Calcium 8.2 L (8.4-10.2) mg/dL Assessment and Plan Assessment: 1. Syncope 2. Orthostatic hypotension 3. CKD stage III 4. Type 2 diabetes 5. Chronic systolic heart failure, EF 35-40% 6. BPH 7. Hypertension, essential 8. Hyperlipidemia He 4-year-old man with past medical history of CAD/HTN/HLD, BPH, chronic systolic heart failure, type 2 diabetes/CK D stage III presented with syncope from over diuresis causing orthostatic hypotension. #Syncope 2 likely due to orthostatic hypotension from diuretics -Patient recently discharged on Lasix 40 mg by mouth twice a day. -Patient severely orthostatic hypotensive in the ED -Hold Lasix, Coreg and Terazosin -Gentle IV fluids. We'll need to monitor patient cautiously due to heart failure and recent admission for acute or chronic systolic heart failure with the patient was treated with IV Lasix and dobutamine drip. -PT and OT consult -Cardiology consult to adjust diuretics as well as BP medication. -Orthostatic blood pressure every shift #Leukocytosis -Patient has no signs or symptoms of infection -Likely reactive from syncope -Monitor CBC #CK D stage III -Patient previously was discharged with a creatinine of 1.77. On admission creatinine is 1.67 so patient is close to his baseline. -Monitor BMP. #Diabetes type 2 -Patient recently had his oral diabetic meds discontinued due to hypoglycemia -Hemoglobin A1c in May was 5.9. -Sliding-scale insulin for now and will also recheck hemoglobin A1c. To consider starting diabetic med at discharge if patient is hyperglycemic during h ospitalization. #Chronic systolic heart failure with EF of 35-40% -Holding beta aurelio due to orthostatic hypotension. Not on FRANTZ inhibitor due to renal failure. -Chest x-ray shows no pulmonary edema or pleural effusion -Patient has no lower extremity edema and denies shortness of breath -Hold Lasix for now (see above). -May need to adjust diuretics at discharge. Cardiology consult -Patient currently euvolemic. #BPH -Resume finasteride. Holding Terazosin #Hypertension -Holding BP meds due to the above #Hyperlipidemia -Resume statin CODE STATUS: DNR/DNI DVT prophylaxis: Subcu heparin Discussed with: Patient, ER, rn DPOA: and son Anticipated length of stay < than [address]: home A total of 75 minutes was spent on the care of this complex patient more than 50% of the time was spent in counseling and care coordination.
[2020-07-14 12:43] LABS: Glucose,Whole Blood 180 mg/dL (75-99)
[2020-07-14 13:27] LABS: Hemoglobin A1C 6.6 % (4.0-6.0)
[2020-07-14] MEDS: MIDODRINE 5 MG TAB PO SCH ×2 (13:35→18:14)
[2020-07-14] MEDS: ATORVASTATIN 10 MG TAB PO SCH (13:35)
[2020-07-14 17:32] LABS: Glucose,Whole Blood 137 mg/dL (75-99)
[2020-07-14] MEDS ORDERED: bisacodyL 10 MG SUPP RECTAL STA (17:43)
[2020-07-14 20:20] LABS: Glucose,Whole Blood 141 mg/dL (75-99)
[2020-07-14] MEDS: SENNOSIDES-DOCUSATE SODIUM 1 EACH TAB PO SCH (20:28)
[2020-07-15 07:01] LABS: Glucose,Whole Blood 113 mg/dL (75-99)
[2020-07-15] MEDS: carvediloL 3.125 MG TAB PO SCH (07:04)
[2020-07-15] MEDS: MIDODRINE 5 MG TAB PO SCH (07:04)
[2020-07-15] MEDS: INSULIN ASPART (NovoLOG) 100 UNIT/ML VIAL SQ SCH (07:24)
[2020-07-15] MEDS: FUROSEMIDE 40 MG TAB PO SCH (07:59)
[2020-07-15] MEDS: HEPARIN SODIUM,PORCINE 5,000 UNIT/ML 1 ML VIAL SQ SCH (07:59)
[2020-07-15] MEDS: SENNOSIDES-DOCUSATE SODIUM 1 EACH TAB PO SCH (07:59)
[2020-07-15] MEDS: FINASTERIDE 5 MG TAB PO SCH (07:59)
[2020-07-15 08:03] VITALS: RESP 16; TEMP 98.9
[2020-07-15] MEDS ORDERED: polyethylene glycoL 3350 17 GM POWD.PACK PO SCH (09:00)
[2020-07-15] MEDS ORDERED: ASPIRIN 81 MG PO SCH (09:00)
--- NOTE | 2020-07-15 10:51 | P.DS ---
Providers Date of admission: 07/13/20 08:49 Expected date of discharge: 07/15/20 Attending physician: Sree Driver MD Consults: 07/13/20 08:49 Consult Physician Urgent Consulting Provider: [facility] Consult Reason/Comments: Near syncope Do you want consulting provider notified?: Yes Primary care physician: [facility] Course: 1. Syncope 2. Orthostatic hypotension 3. CKD stage III 4. Type 2 diabetes 5. Chronic systolic heart failure, EF 35-40% 6. BPH 7. Hypertension, essential 8. Hyperlipidemia 84-year-old man with past medical history of CAD/HTN/HLD, BPH, chronic systolic heart failure, type 2 diabetes/CK D stage III presented with syncope from over diuresis causing orthostatic hypotension. Pt was admitted and monitored closely on telemetry. He had + orthostatic vitals. Cardiology was consulted and adjusted his medications - started midodrine, cut carvedilol to 3.125, reduced lasix to daily dosing. Pt did well with PT/OT, and was discharged home with plan for home PT/OT. Assessment: Gen: awake, alert HEENT: normocephalic, atraumatic, good hearing acuity, moist mucous membranes Resp: CTAB, good air exchange, no accessory muscle use, no wheezes, crackles, rhonchi CVS: good distal perfusion x 4, RRR, no murmurs, clicks, gallops GI: soft, NTTP, ND : no SPT, no CVAT, mayfield catheter not present MSK: +pitting edema, no clubbing Neuro: non-focal, no sensory deficits, appropriate tone Psych: cooperative, euthymic mood Plan - Discharge Summary New Discharge Prescriptions: New carvediloL [Coreg] 3.125 mg PO BID-W/MEALS #60 tab Furosemide [Lasix] 40 mg PO DAILY tab Midodrine [ProAmatine] 5 mg PO AC-TID #90 tab Continue Aspirin [Adult Low Dose Aspirin EC] 81 mg PO DAILY@1200,2000 Finasteride [Proscar] 5 mg PO QAM Lovastatin [Mevacor] 20 mg PO DAILY@1200 [place]-3 Fatty Acids/Fish Oil [Fish Oil 1,000 mg Softgel] 1 cap PO Q48H Terazosin HCl [Hytrin] 10 mg PO HS Ubidecarenone [Co Q-10] 200 mg PO QAM Bismuth Subsalicylate [Bismatrol] 524 mg PO TID PRN #240 ml PRN Reason: Diarrhea Potassium Chloride ER [K-Dur 20] 20 meq PO DAILY #30 tab.er.prt Discontinued Carvedilol [Coreg] 12.5 mg PO BID Furosemide [Lasix] 40 mg PO BID@0900,1600 #60 tab Discharge Medication List Aspirin [Adult Low Dose Aspirin EC] 81 mg PO DAILY@1200,199906/24/20 [History] Finasteride [Proscar] 5 mg PO QAM 06/24/20 [History] Lovastatin [Mevacor] 20 mg PO DAILY@1200 06/24/20 [History] [place]-3 Fatty Acids/Fish Oil [Fish Oil 1,000 mg Softgel] 1 cap PO Q48H 06/24/20 [History] Terazosin HCl [Hytrin] 10 mg PO HS 06/24/20 [History] Ubidecarenone [Co Q-10] 200 mg PO QAM 06/24/20 [History] Bismuth Subsalicylate [Bismatrol] 524 mg PO TID PRN #240 ml 07/02/20 [Rx] Potassium Chloride ER [K-Dur 20] 20 meq PO DAILY #30 tab.er.prt 07/02/20 [Rx] Furosemide [Lasix] 40 mg PO DAILY tab 07/15/20 [Rx] Midodrine [ProAmatine] 5 mg PO AC-TID #90 tab 07/15/20 [Rx] carvediloL [Coreg] 3.125 mg PO BID-W/MEALS #60 tab 07/15/20 [Rx] [facility] Zahida Buck MD [Primary Care Provider] - 1-2 days
[2020-07-15 10:54] VITALS: BP 145/65; PULSE 59
--- NOTE | 2020-07-15 12:48 | P.PN ---
Subjective HISTORY OF PRESENTING ILLNESS This is a pleasant 84-year-old male past medical history significant for coronary artery disease status post four-vessel bypass grafting in 2009, ischemic cardiomyopathy status post AICD 2013, hypertension, dyslipidemia, diabetes mellitus and chronic systolic heart failure. Pt is seen and examined coming back from the bathroom. He denies chest pain, shortness of breath, dizziness or palpitations. Orthostatic vital signs this morning are supine 145/65 and standing 115/57. He is asymptomatic with position changes. Currently maintained on decreased dose of coreg and lasix along with midodirine. PHYSICAL EXAMINATION CONSTITUTIONAL: No apparent distress. HEENT: Head is normocephalic. Pupils are equal, round. Sclerae anicteric. Mucous membranes of the mouth are moist. No JVD. No carotid bruit. CHEST EXAMINATION: Lungs are clear to auscultation. No chest wall tenderness is noted on palpation or with deep breathing. HEART EXAMINATION: Regular rate and rhythm. S1, S2 heard. Systolic ejection murmur at the left sternal border, no gallops or rub. EXTREMITIES: 2+ peripheral pulses, no lower extremity edema and no calf tenderness. ASSESSMENT Orthostatic hypotension, improved Generalized weakness and fall, likely secondary to orthostatic changes Ischemic cardiomyopathy Chronic systolic heart failure, clinically euvolemic Hypertension Dyslipidemia Coronary artery disease s/p bypass grafting Diabetes mellitus PLAN Stable from a cardiac perspective. We considered sending him home on midodrine but decided to use the lower dose of cardiac medications rather than commit to another medications. Recommend close follow up in the office with Dr. Lyle. Nurse Practitioner note has been reviewed, I agree with a documented findings and plan of care. Patient was seen and examined. Objective - Vital Signs Vital signs: Vital Signs Temp 98.9 F 07/15/20 08:03 Pulse 59 L 07/15/20 10:53 Resp 16 07/15/20 08:08 BP 145/65 07/15/20 10:53 Pulse Ox 97 07/15/20 08:03 Intake & Output 07/14/20 07/15/20 07/15/20 18:59 06:59 18:59 Intake Total 0 Output Total 200 500 Balance -200 -500 Intake: Oral 0 Output: Urine 200 500 Other: Voiding Method Urinal Urinal Urinal # Voids 1 1 - Labs CBC & Chem 7: 07/14/20 06:38 07/14/20 06:38 Labs: Abnormal Lab Results - Last 24 Hours (Table) 07/14/20 07/14/20 07/14/20 Range/Units 06:38 17:30 20:19 POC Glucose (mg/dL) 137 H 141 H (75-99) mg/dL Hemoglobin A1c 6.6 H (4.0-6.0) % 07/15/20 Range/Units 06:59 POC Glucose (mg/dL) 113 H (75-99) mg/dL Hemoglobin A1c (4.0-6.0) %
[2020-07-15 12:53] LABS: Glucose,Whole Blood 140 mg/dL (75-99)
== END 2020-07-15 13:58 | disposition home or self-care (01) ==
LOC: EC 06:50 → 3NCARDOBS 08:49
PROVIDERS: ADMIT Internal Medicine; ATTEND Internal Medicine
DX: R55 Syncope and collapse (principal); I95.1 Orthostatic hypotension; R53.1 Weakness; D72.829 Elevated white blood cell count, unspecified; E11.22 Type 2 diabetes mellitus with diabetic chronic kidney disease; E78.5 Hyperlipidemia, unspecified; I13.0 Hypertensive heart and chronic kidney disease with heart failure and stage 1 through stage 4 chronic kidney disease, or unspecified chronic kidney disease; I25.10 Atherosclerotic heart disease of native coronary artery without angina pectoris; I25.5 Ischemic cardiomyopathy; I50.22 Chronic systolic (congestive) heart failure; N18.30 Chronic kidney disease, stage 3 unspecified; N40.0 Benign prostatic hyperplasia without lower urinary tract symptoms; T50.2X5A Adverse effect of carbonic-anhydrase inhibitors, benzothiadiazides and other diuretics, initial encounter; W19.XXXA Unspecified fall, initial encounter; Y92.009 Unspecified place in unspecified non-institutional (private) residence as the place of occurrence of the external cause; Z66 Do not resuscitate; Z79.82 Long term (current) use of aspirin; Z79.899 Other long term (current) drug therapy; Z82.49 Family history of ischemic heart disease and other diseases of the circulatory system; Z87.891 Personal history of nicotine dependence; Z95.0 Presence of cardiac pacemaker; Z95.1 Presence of aortocoronary bypass graft; Z95.810 Presence of automatic (implantable) cardiac defibrillator
CPT/HCPCS: 96361 ×2; 96372 ×3; 96360; 99285; 36415; 93005; 97530; 97161; 97166; 80053; 80048; 83605; 83735 ×2; 84484; 85025 ×2; 85610; 85730; 81001; 83036; 73564; 71046; G0378 ×3; S0138 ×3; J1644 ×3

== ENCOUNTER 2023-05-30 12:38 | Day surgery (SDC) | payer MEDICARE, BC ==
[2023-05-26 16:05] VITALS: BMI 31.9
[~2023-05-30 12:38] MED LIST: CLINDAMYCIN 600 MG in SODIUM CHLORIDE 0.9% 250 ML IRRIGATION PRN; CLINDAMYCIN 900 MG in DEXTROSE 5% IN WATER 50 ML IVPB PRN; LACTATED RINGERS 1,000 ML IV SCH; SODIUM CHLORIDE 0.9% 1,000 ML IV SCH
[2023-05-30] MEDS ORDERED: SODIUM CHLORIDE 0.9% 1,000 ML IV ONE (12:54)
[2023-05-30 13:10] LABS: Glucose,Whole Blood 108 mg/dL (70-110)
[2023-05-30] MEDS ORDERED: carvediloL 3.125 MG TAB PO STA (13:34)
[2023-05-30 13:36] LABS: Basophils % (A) 0 %; Eosinophils # (A) 0.2 k/uL (0-0.7); Eosinophils % (A) 1 %; HCT 37.5 % (39.0-53.0); HGB 11.9 gm/dL (13.0-17.5); Hypochromasia Slight; Lymphocytes # (A) 4.4 k/uL (1.0-4.8); Lymphocytes % (A) 35 %; MCH 26.9 pg (25.0-35.0); MCHC 31.7 g/dL (31.0-37.0); Mean Platelet Volume 6.9; Monocytes # (A) 0.7 k/uL (0-1.0); Monocytes % (A) 5 %; Neutrophils % (A) 56 %; Platelet Count 237 k/uL (150-450); RBC 4.41 m/uL (4.30-5.90); RDW 14.2 % (11.5-15.5); WBC 12.6 k/uL (3.8-10.6)
[2023-05-30 13:42] LABS: African American GFR (CKD) 48 (>60 ml/min/1.73 sqM); Anion Gap 7 mmol/L; Blood Urea Nitrogen 24 mg/dL (9-20); Calcium 9.4 mg/dL (8.4-10.2); Carbon Dioxide 28 mmol/L (22-30); Chloride 107 mmol/L (98-107); Glucose 105 mg/dL (74-99); Non-African American GFR(CKD) 41 (>60 ml/min/1.73 sqM); Potassium 4.5 mmol/L (3.5-5.1); Sodium 142 mmol/L (137-145)
[2023-05-30] MEDS ORDERED: PROPOFOL 10 MG/ML 20 ML VIAL IV ONE (15:57)
[2023-05-30] MEDS ORDERED: LABETALOL 5 MG/ML VIAL MDV ONE (15:57)
[2023-05-30] MEDS ORDERED: fentaNYL (PF) 50 MCG/ML 2 ML AMP ONE (15:57)
[2023-05-30] MEDS ORDERED: MIDAZOLAM 2 MG/2 ML VIAL ONE (15:57)
[2023-05-30] MEDS ORDERED: LIDOCAINE 1% INJ 10MG/ML (20 ML MDV) ONE ×2 (16:08)
[2023-05-30] MEDS ORDERED: VANCOMYCIN 1,500 MG in SODIUM CHLORIDE 0.9% 500 ML 500 ML IVPB ONE (16:15)
[2023-05-30] MEDS ORDERED: NITROGLYCERIN OINT 1 INCH/GM PACKET TOPICAL ONE ×2 (16:18→16:21)
[2023-05-30] MEDS ORDERED: LIDOCAINE 1% INJ 10MG/ML (20 ML MDV) SQ ONE ×4 (16:33→16:57)
[2023-05-30] MEDS ORDERED: ACETAMINOPHEN IV (For NPO) 1,000 MG in EMPTY BAG 1 BAG IVPB ONE (17:57)
[2023-05-30] MEDS ORDERED: ACETAMINOPHEN TAB 325 MG TAB PO PRN (17:57)
--- NOTE | 2023-05-30 17:57 | P.EPCON ---
Electrophysiology Consult - EP Consult Electrophysiology Consult: Diagnosis Complete heart block Ischemic cardiomyopathy, multivessel coronary artery disease status post coronary bypass grafting With biventricular pacing, left radical ejection fraction improved to 40% In July 2020 left ventricular ejection fraction was 35% CK be stage III, History of orthostatic hypotension and syncope Status post biventricular ICD which is at HOMA Congestive heart failure class II Atrial tachycardia/atrial flutter On guide line to medical treatment Shared decision making/[place] document Procedure: Biventricular ICD generator change, transvenous temporary pacing Cinefluoroscopy of the leads revealed bipolar LV lead in stable position, RV ICD lead in the right atrial lead. No fractures or breaks Result: Successful biventricular ICD generator change, Atrial lead: 510 ohms, atrial signal 0.9 mV RV ICD lead: 1.25 V at 0.5 ms and pacing impedance 300 ohms Left ventricular lead: Unipolar LV tip to RV coil 1 warted 0.5 ms, pacing impedance 590 ohms High-voltage impedance 66 ohms Procedure details: Patient was brought to the EP lab in a fasting state. Written informed consent was obtained prior to the procedure. Options, pros and cons, benefits and risks and complications discussed with patient in detail jennifer or to the procedure (shared decision making). Importance of continuing medical treatment emphasized previously. Alternatives discussed previously. The left pectoral area was prepped and draped as a protocol. IV antibiotics administered 1% lidocaine was used for local anesthesia. A 4 cm incision was made parallel to the deltopectoral groove, about 1.5 cm medial to it. The incision was carried down to the level of the pectoralis muscle and the subfascial pocket was made. Hemostasis was assured. Old generator, [employer] explanted New by ventricle ICD generator, [employer] un[employer] Assura model #3357-40 Q implanted Leads secured to the underlying pectoral muscle after removing sheaths . Pocket irrigated with antibiotic solution. Antibiotic pouch placed Leads connected to the biventricular ICD generator. Wound closed in 3 layers and dressed per protocol Biventricular ICD interrogated and programmed. Appropriate pacing parameters, antitachycardia therapies with antitachycardia pacing cardioversion defibrillations programmed. AV delay and biventricular pacing parameters programmed to achieve optimal physiologic pacing LV offset 20 ms DDD 60 bpm Patient tolerated the procedure well without any acute complications. See scanned device report in EMR for lead details
--- NOTE | 2023-05-30 18:04 | P.EPPROC ---
- EP Procedure Note Electrophysiology Procedure Note: Transvenous temporary pacing procedure Indication for the procedure: Severe underlying bradycardia Patient was brought to the EP lab in a fasting state. Written informed consent was obtained prior to the procedure. The right groin was prepped and draped as a protocol. A 6-[place] sheath was placed in the right femoral vein. Via this, a temporary pacing catheter was placed in the right ventricle. Thresholds were interrogated. Temporary pacing was performed through the rest of the procedure. At the end of the entire procedure, the TVP was removed. The sheath was removed and hemostasis was assured. Patient tolerated the procedure well without any acute complications. Procedure performed Transvenous temporary pacing
[2023-05-30] MEDS: SODIUM CHLORIDE 0.9% 1,000 ML IV SCH ×2 (19:45→22:53)
[2023-05-30] MEDS: carvediloL 6.25 MG TAB PO SCH (20:02)
[2023-05-30] MEDS: APIXABAN 2.5 MG TABLET PO SCH (20:02)
[2023-05-30] MEDS ORDERED: DOXAZOSIN 4 MG TAB PO SCH (21:00)
[2023-05-30] MEDS ORDERED: CLINDAMYCIN 900 MG in DEXTROSE 5% IN WATER 50 ML IVPB SCH ×2 (22:00)
[2023-05-31 02:33] VITALS: PULSE 60
[2023-05-31 06:36] LABS: Glucose,Whole Blood 118 mg/dL (70-110)
[2023-05-31] MEDS: carvediloL 6.25 MG TAB PO SCH (06:37)
[2023-05-31] MEDS ORDERED: GLIMEPIRIDE 1 MG TAB PO SCH (07:30)
[2023-05-31] MEDS ORDERED: FINASTERIDE 5 MG TAB PO SCH (09:00)
[2023-05-31] MEDS: APIXABAN 2.5 MG TABLET PO SCH (09:31)
[2023-05-31 09:58] VITALS: RESP 18; TEMP 98.3
[2023-05-31 10:08] VITALS: BP 132/66
--- NOTE | 2023-05-31 11:30 | P.DS ---
Providers Attending physician: Noe Marquez Primary care physician: [facility] Course: Patient was resting comfortably in bed Denies any chest discomfort dizziness lightheadedness He had some loose bowel movements overnight for his blood pressure is normal His tongue is moist On examination afebrile 98.3F pulse rate in the 60s Blood pressure 114/51 mmHg He does have orthostatic hypotension. 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 Pocket Patient has completed IV antibiotics I would recommend reducing the dose of terazosin to be decreased to 5 mg daily at bedtime 10 mg dosage is being discontinued Observe for any urinary stream problems Discussed with the son Follow-up with his PCP Follow-up with Dr. Gotti Plan - Discharge Summary Discharge Rx Participant: No New Discharge Prescriptions: New carvediloL [Coreg] 6.25 mg PO BID #180 tablet Terazosin [Hytrin] 5 mg PO HS #90 cap lisinopriL 2.5 mg PO QAM #90 tablet Lovastatin [Altoprev] 40 mg PO DAILY #90 tab Discontinued Lovastatin [Mevacor] 20 mg PO PC-LUNCH Terazosin HCl [Hytrin] 10 mg PO HS carvediloL [Coreg] 3.125 mg PO BID-W/MEALS #60 tab No Action Finasteride [Proscar] 5 mg PO QAM Ubidecarenone [Co Q-10] 100 mg PO Q2D Cholecalciferol [Vitamin D3 (25 Mcg = 1000 Iu)] 100 mcg PO DAILY Apixaban [Eliquis] 2.5 mg PO BID Glimepiride [Amaryl] 1 mg PO AC-BRKFST Furosemide [Lasix] 40 mg PO PC-LUNCH Discharge Medication List Finasteride [Proscar] 5 mg PO QAM 06/24/20 [History] Ubidecarenone [Co Q-10] 100 mg PO Q2D 06/24/20 [History] Apixaban [Eliquis] 2.5 mg PO BID 05/26/23 [History] Cholecalciferol [Vitamin D3 (25 Mcg = 1000 Iu)] 100 mcg PO DAILY 05/26/23 [History] Glimepiride [Amaryl] 1 mg PO AC-BRKFST 05/26/23 [History] Furosemide [Lasix] 40 mg PO PC-LUNCH 05/30/23 [History] Lovastatin [Altoprev] 40 mg PO DAILY #90 tab 05/30/23 [Rx] carvediloL [Coreg] 6.25 mg PO BID #180 tablet 05/30/23 [Rx] lisinopriL 2.5 mg PO QAM #90 tablet 05/30/23 [Rx] Terazosin [Hytrin] 5 mg PO HS #90 cap 05/31/23 [Rx] Follow up Appointment(s)/Referral(s): Benjamin Gotti MD [STAFF PHYSICIAN] - 06/08/23 9:00 am (DEVICE CLINIC AND THEN WILL FOLLOW UP [facility] DR GOTTI) Activity/Diet/Wound Care/Special Instructions: PATIENT EDUCATION MATERIAL Instructions following a heart rhythm device implant. 1. Keep dressing DRY for 5 DAYS. You may cover the area with Saran or Cling Wrap, prior to a shower. 2. The dressing will be removed in the Device Clinic at [facility]. Absorbable sutures were used to close the wound. 3. Avoid raising the left arm above the shoulder level. 4 week restriction 4. Avoid arm movements, like backscratching, rubbing the head, or pulling on a cord. 4 weeks restriction 5. Gentle range of motion movements of the shoulder, closest to the incision s hould be performed to avoid a frozen shoulder. (Pendulum exercises of the shoulder) 6. The opposite arm may be used freely. 7. Avoid driving for 7 days. 8. Avoid activities such as golfing, swimming, weed whacking, lifting more than 10 pounds weight, bowling, gymnastics and weight training/lifting. (6 weeks restriction) 9. Activities such as wood chopping with an axe, pull-ups in the gymnasium, power lifting, arc-welding, being close to home induction cooktops will always be a problem. 10. Arm sling is only a reminder not to raise the arm above the head. You do not need to keep the arm completely immobilized. Your free to move the arm and use it and for normal activities. In case of any problems, please call [facility], Jennifer Weber, @ [phone], Attention: Device Clinic Device clinic follow-up in 5 days Follow-up with primary production operations manager in 2-3 months Increase carvedilol to 6.25 mg twice daily Lisinopril 2.5 mg by mouth daily Increase lovastatin to 40 mg daily Reduce the dose of terazosin to 5 mg daily at bedtime. Patient has orthostatic hypotension on examination Discharge Disposition: HOME SELF-CARE
[2023-05-31] MEDS ORDERED: ATORVASTATIN 10 MG TAB PO SCH (13:30)
[2023-05-31] MEDS ORDERED: FUROSEMIDE 40 MG TAB PO SCH (13:30)
[2023-05-31] MEDS ORDERED: DOXAZOSIN 4 MG TAB PO SCH (21:00)
== END 2023-05-31 12:02 | disposition home or self-care (01) ==
LOC: CATHEP 12:38 → 6NMEDSUR 17:49 → CATHEP 05-31 12:02
PROVIDERS: ATTEND Internal Medicine Clinical Cardiac Electrophysiology
DX: I44.2 Atrioventricular block, complete (principal); Z45.02 Encounter for adjustment and management of automatic implantable cardiac defibrillator; I11.0 Hypertensive heart disease with heart failure; I50.9 Heart failure, unspecified; I25.5 Ischemic cardiomyopathy; I48.92 Unspecified atrial flutter; I25.10 Atherosclerotic heart disease of native coronary artery without angina pectoris; E78.5 Hyperlipidemia, unspecified; Z95.1 Presence of aortocoronary bypass graft; Z79.01 Long term (current) use of anticoagulants; Z79.899 Other long term (current) drug therapy; Z79.84 Long term (current) use of oral hypoglycemic drugs; Z87.891 Personal history of nicotine dependence; Z95.810 Presence of automatic (implantable) cardiac defibrillator; Z95.5 Presence of coronary angioplasty implant and graft
CPT/HCPCS: 33264; 80048; 85025; C1894; C1769; C1760; C1730; C1882; S0138; J2250; J3370; J2001; J3010; J0131; J2704; J0736; J1920

== ENCOUNTER 2023-08-16 11:16 | Emergency (ER) | payer OTHER, MEDICARE, BC ==
[2023-08-16 11:52] VITALS: RESP 16; TEMP 98.7
--- NOTE | 2023-08-16 12:05 | ED ---
General Adult HPI - General Chief complaint: Syncope Stated complaint: Hypotension Time Seen by Provider: 08/16/23 11:37 Source: patient, EMS, RN notes reviewed, old records reviewed Mode of arrival: EMS Limitations: no limitations - History of Present Illness Initial comments: 87-year-old male with syncopal episode. Patient had just taken a shower he was in his electric escalator chair and passed out at the top of the stairs. There is no fall. states he was unresponsive until paramedics arrived. He denied any preceding symptoms of chest pain or palpitations. No vomiting. Patient has had progressive weakness over the past several weeks. He's also had cough and cold symptoms over the past several days including sore throat, mild cough and runny nose. No fever. - Related Data Home Medications Medication Instructions Recorded Confirmed Finasteride [Proscar] 5 mg PO DAILY 06/24/20 08/16/23 Apixaban [Eliquis] 2.5 mg PO BID 05/26/23 08/16/23 Glimepiride [Amaryl] 1 mg PO DAILY 05/26/23 08/16/23 Furosemide [Lasix] 20 mg PO BID@0900,1200 05/30/23 08/16/23 Lovastatin [Altoprev] 20 mg PO DAILY 08/16/23 08/16/23 lisinopriL 2.5 mg PO DAILY 08/16/23 08/16/23 Previous Rx's Medication Instructions Recorded carvediloL [Coreg] 6.25 mg PO BID #180 tablet 05/30/23 Terazosin [Hytrin] 5 mg PO HS #90 cap 05/31/23 Levofloxacin [Levaquin] 500 mg PO DAILY 5 Days #5 tab 08/16/23 Allergies Allergy/AdvReac Type Severity Reaction Status Date / Time Penicillins Allergy Rash/Hives Verified 08/16/23 11:27 Review of Systems ROS Statement: Those systems with pertinent positive or pertinent negative responses have been documented in the HPI. ROS Other: All systems not noted in ROS Statement are negative. Past Medical History Past Medical History: Heart Failure, Diabetes Mellitus, Hyperlipidemia, Hypertension, Syncope Additional Past Medical History / Comment(s): see Dr Marquez's h&p, EF 20-25 present in past, 13 heart caths, 9 stents. pacer/defib 2013. Covid inf winter 2022,. 07/13/20 passed out at home History of Any Multi-Drug Resistant Organisms: None Reported Past Surgical History: AICD, Appendectomy, Cholecystectomy, Coronary B ypass/CABG, Heart Catheterization, Heart Catheterization With Stent Additional Past Surgical History / Comment(s): CABG 4 vessels,9 cardiac stents Past Anesthesia/Blood Transfusion Reactions: No Reported Reaction Additional Past Anesthesia/Blood Transfusion Reaction / Comment(s): no hx blood transfusion Date of Last Stent Placement:: 2009 Type of Cardiac Device: Biventricular Pacemaker, AICD Device Placement Date:: 2013 [facility] Past Psychological History: No Psychological Hx Reported Smoking Status: Former smoker Past Alcohol Use History: None Reported Past Drug Use History: None Reported - Past Family History Mother Family Medical History: Cancer Father Family Medical History: Myocardial Infarction ([place]) Additional Family Medical History / Comment(s): at age 58 [place]. grandfather LA at age 61 General Exam Limitations: no limitations General appearance: alert, in no apparent distress Head exam: Present: atraumatic, normocephalic Eye exam: Present: normal appearance, PERRL Neck exam: Present: normal inspection. Absent: tenderness Respiratory exam: Present: normal lung sounds bilaterally, respiratory distress Cardiovascular Exam: Present: regular rate, normal rhythm GI/Abdominal exam: Present: soft. Absent: distended, tenderness, guarding Neurological exam: Present: alert, oriented X3, motor sensory deficit Skin exam: Present: warm, dry, intact. Absent: cyanosis, diaphoretic Course Vital Signs 08/16/23 11:27 Temperature 98.7 F Pulse Rate 60 Respiratory 16 Rate Blood Pressure 132/54 O2 Sat by Pulse 98 Oximetry - Reevaluation(s) Reevaluation #1: 08/16/23 14:39 Patient and family members are eager for discharge. They state they have good resources at home including walker and wheelchair. Medical Decision Making - Medical Decision Making Was pt. sent in by a medical professional or institution (, PA, WATCH ASSEMBLY INSTRUCTOR, urgent care, hospital, or prison...) When possible be specific @ -No Did you speak to anyone other than the patient for history (EMS, parent, family, police, friend...)? What history was obtained from this source @ -[Patient's family who is at bedside Did you review nursing and triage notes (agree or disagree)? Why? @ -I reviewed and agree with nursing and triage notes Were old charts reviewed (outside hosp., previous admission, EMS record, old EKG, old radiological studies, urgent care reports/EKG's, prison records)? Report findings @ -No old charts were reviewed Differential Diagnosis (chest pain, altered mental status, abdominal pain women, abdominal pain men, vaginal bleeding, weakness, fever, dyspnea, syncope, headache, dizziness, GI bleed, back pain, seizure, CVA, palpatations, mental health, musculoskeletal)? @ -Differential Syncope: Valvular disease, hypertrophic cardiomyopathy, pulmonary embolism, tamponade, tachycardia, bradycardia, [place], hypovolemia, hemorrhage, dissection, anemia, intracranial hemorrhage, seizure, hypoglycemia, carbon monoxide poisoning, this is not meant to be an all-inclusive list. EKG interpreted by me (3pts min.). @ Paced rhythm rate of 60, ND interval 140, QRS duration 161, QTC 505 X-rays interpreted by me (1pt min.). @ -Chest x-ray is showing hypoventilation without definitive acute process, no pneumothorax, no focal pneumonia. CT interpreted by me (1pt min.). @ -None done U/S interpreted by me (1pt. min.). @ -None done What testing was considered but not performed or refused? (CT, X-rays, U/S, labs)? Why? @ -None What meds were considered but not given or refused? Why? @ -None Did you discuss the management of the patient with other professionals (professionals i.e. , PA, WATCH ASSEMBLY INSTRUCTOR, lab, RT, psych nurse, social sciences research scientist, local city driver, teacher, fisheries technical officer, case advocate)? Give summary @ -No Was smoking cessation discussed for >3mins.? @ -No Was critical care preformed (if so, how long)? @ -No Were there social determinants of health that impacted care today? How? (Homelessness, low income, unemployed, alcoholism, drug addiction, trans portation, low edu. Level, literacy, decrease access to med. care, senior care, rehab)? @ -No Was there de-escalation of care discussed even if they declined (Discuss DNR or withdrawal of care, Hospice)? DNR status @ -No What co-morbidities impacted this encounter? (DM, HTN, Smoking, COPD, CAD, Cancer, CVA, ARF, Chemo, Hep., AIDS, mental health diagnosis, sleep apnea, morbid obesity)? @ -[Multiple comorbidities Was patient admitted / discharged? Hospital course, mention meds given and rou te, prescriptions, significant lab abnormalities, going to OR and other pertinent info. @ -[87-year-old male with syncopal episode while in the seated position. No injury. Patient is in paced rhythm with stable blood pressure. He has had some cough and cold symptoms over the past several days. Viral panel is negative. Chest x-ray is negative for focal pneumonia. He has a mild leukocytosis, stable chronic anemia, stable chronic kidney disease. Urinalysis is concerning for UTI. Patient started on antibiotics. Recent urine culture was susceptible to Levaquin. Patient wishes to be discharged home. Undiagnosed new problem with uncertain prognosis? @ -No Drug Therapy requiring intensive monitoring for toxicity (Heparin, Nitro, Insulin, Cardizem)? @ -No Were any procedures done? @ -No Diagnosis/symptom? @Syncope, UTI Acute, or Chronic, or Acute on Chronic? @ -[Acute Uncomplicated (without systemic symptoms) or Complicated (systemic symptoms)? @ -default Side effects of treatment? @ -No Exacerbation, Progression, or Severe Exacerbation? @ -No Poses a threat to life or bodily function? How? (Chest pain, [place], [place], pneumonia, PE, COPD, DKA, ARF, appy, cholecystitis, CVA, Diverticulitis, Homicidal, Suicidal, threat to staff... and all critical care pts) @ -[yes, syncope - Lab Data Result diagrams: 08/16/23 12:34 08/16/23 12:34 Lab Results 08/16/23 08/16/23 08/16/23 Range/Units 12:34 12:34 12:34 WBC 13.3 H (3.8-10.6) k/uL RBC 3.84 L (4.30-5.90) m/uL Hgb 10.3 L (13.0-17.5) gm/dL Hct 32.2 L (39.0-53.0) % MCV 83.8 (80.0-100.0) fL MCH 26.7 (25.0-35.0) pg MCHC 31.9 (31.0-37.0) g/dL RDW 14.2 (11.5-15.5) % Plt Count 200 (150-450) k/uL MPV 7.5 Neutrophils % 78 % Lymphocytes % 16 % Monocytes % 4 % Eosinophils % 1 % Basophils % 0 % Neutrophils # 10.3 H (1.3-7.7) k/uL Lymphocytes # 2.1 (1.0-4.8) k/uL Monocytes # 0.6 (0-1.0) k/uL Eosinophils # 0.1 (0-0.7) k/uL Basophils # 0.0 (0-0.2) k/uL Hypochromasia Slight PT 12.3 (10.0-12.5) sec INR 1.2 H (<1.2) APTT 28.1 (22.0-30.0) sec Sodium 142 (137-145) mmol/L Potassium 4.3 (3.5-5.1) mmol/L Chloride 108 H (98-107) mmol/L Carbon Dioxide 25 (22-30) mmol/L Anion Gap 9 mmol/L BUN 25 H (9-20) mg/dL Creatinine 1.85 H (0.66-1.25) mg/dL Est GFR (CKD-EPI)AfAm 37 (>60 ml/min/1.73 sqM) Est GFR (CKD-EPI)NonAf 32 (>60 ml/min/1.73 sqM) Glucose 121 H (74-99) mg/dL Calcium 8.5 (8.4-10.2) mg/dL Magnesium 2.2 (1.6-2.3) mg/dL Total Bilirubin 0.9 (0.2-1.3) mg/dL AST 19 (17-59) U/L ALT 13 (4-49) U/L Alkaline Phosphatase 50 (38-126) U/L Total Protein 5.9 L (6.3-8.2) g/dL Albumin 3.3 L (3.5-5.0) g/dL Urine Color Urine Appearance (Clear) Urine pH (5.0-8.0) Ur Specific [place] (1.001-1.035) Urine Protein (Negative) Urine Glucose (UA) (Negative) Urine Ketones (Negative) Urine Blood (Negative) Urine Nitrite (Negative) Urine Bilirubin (Negative) Urine Urobilinogen (<2.0) mg/dL Ur Leukocyte Esterase (Negative) Urine RBC (0-5) /hpf Urine WBC (0-5) /hpf Urine WBC Clumps (None) /hpf Ur Squamous Epith Cells (0-4) /hpf Urine Bacteria (None) /hpf Hyaline Casts (0-2) /lpf Granular Casts (0) /lpf Urine Mucus (None) /hpf Influenza Type A (PCR) (Not Detectd) Influenza Type B (PCR) (Not Detectd) RSV (PCR) (Not Detectd) SARS-CoV-2 (PCR) (Not Detectd) 08/16/23 08/16/23 Range/Units 12:34 14:01 WBC (3.8-10.6) k/uL RBC (4.30-5.90) m/uL Hgb (13.0-17.5) gm/dL Hct (39.0-53.0) % MCV (80.0-100.0) fL MCH (25.0-35.0) pg MCHC (31.0-37.0) g/dL RDW (11.5-15.5) % Plt Count (150-450) k/uL MPV Neutrophils % % Lymphocytes % % Monocytes % % Eosinophils % % Basophils % % Neutrophils # (1.3-7.7) k/uL Lymphocytes # (1.0-4.8) k/uL Monocytes # (0-1.0) k/uL Eosinophils # (0-0.7) k/uL Basophils # (0-0.2) k/uL Hypochromasia PT (10.0-12.5) sec INR (<1.2) APTT (22.0-30.0) sec Sodium (137-145) mmol/L Potassium (3.5-5.1) mmol/L Chloride (98-107) mmol/L Carbon Dioxide (22-30) mmol/L Anion Gap mmol/L BUN (9-20) mg/dL Creatinine (0.66-1.25) mg/dL Est GFR (CKD-EPI)AfAm (>60 ml/min/1.73 sqM) Est GFR (CKD-EPI)NonAf (>60 ml/min/1.73 sqM) Glucose (74-99) mg/dL Calcium (8.4-10.2) mg/dL Magnesium (1.6-2.3) mg/dL Total Bilirubin (0.2-1.3) mg/dL AST (17-59) U/L ALT (4-49) U/L Alkaline Phosphatase (38-126) U/L Total Protein (6.3-8.2) g/dL Albumin (3.5-5.0) g/dL Urine Color Light [place] Urine Appearance Slightly Cloudy (Clear) Urine pH 5.0 (5.0-8.0) Ur Specific [place] 1.009 (1.001-1.035) Urine Protein Negative (Negative) Urine Glucose (UA) Negative (Negative) Urine Ketones Negative (Negative) Urine Blood Negative (Negative) Urine Nitrite Negative (Negative) Urine Bilirubin Negative (Negative) Urine Urobilinogen <2.0 (<2.0) mg/dL Ur Leukocyte Esterase Large (Negative) Urine RBC 4 (0-5) /hpf Urine WBC >182 H (0-5) /hpf Urine WBC Clumps Few H (None) /hpf Ur Squamous Epith Cells 7 H (0-4) /hpf Urine Bacteria Many H (None) /hpf Hyaline Casts 103 H (0-2) /lpf Granular Casts 15 (0) /lpf Urine Mucus Many H (None) /hpf Influenza Type A (PCR) Not Detected (Not Detectd) Influenza Type B (PCR) Not Detected (Not Detectd) RSV (PCR) Not Detected (Not Detectd) SARS-CoV-2 (PCR) Not Detected (Not Detectd) Disposition Clinical Impression: Syncope, UTI (urinary tract infection) Disposition: HOME SELF-CARE Condition: Fair Instructions (If sedation given, give patient instructions): Urinary Tract Infection in Men (ED), Syncope (ED) Prescriptions: Levofloxacin [Levaquin] 500 mg PO DAILY 5 Days #5 tab Is patient prescribed a controlled substance at d/c from ED?: No Referrals: Zahida Buck MD [Primary Care Provider] - 1-2 days Time of Disposition: 14:41
[2023-08-16 13:05] LABS: ALT 13 U/L (4-49); AST 19 U/L (17-59); African American GFR (CKD) 37 (>60 ml/min/1.73 sqM); Albumin 3.3 g/dL (3.5-5.0); Alkaline Phosphatase 50 U/L (38-126); Anion Gap 9 mmol/L; Blood Urea Nitrogen 25 mg/dL (9-20); Calcium 8.5 mg/dL (8.4-10.2); Carbon Dioxide 25 mmol/L (22-30); Chloride 108 mmol/L (98-107); Glucose 121 mg/dL (74-99); Magnesium 2.2 mg/dL (1.6-2.3); Non-African American GFR(CKD) 32 (>60 ml/min/1.73 sqM); Potassium 4.3 mmol/L (3.5-5.1); Sodium 142 mmol/L (137-145); Total Bilirubin 0.9 mg/dL (0.2-1.3); Total Protein 5.9 g/dL (6.3-8.2)
[2023-08-16 13:22] LABS: INR 1.2 (<1.2)
[2023-08-16 13:23] LABS: Partial Thromboplastin Time 28.1 sec (22.0-30.0); Prothrombin Time 12.3 sec (10.0-12.5)
[2023-08-16 13:37] LABS: Basophils % (A) 0 %; Eosinophils # (A) 0.1 k/uL (0-0.7); Eosinophils % (A) 1 %; HCT 32.2 % (39.0-53.0); HGB 10.3 gm/dL (13.0-17.5); Hypochromasia Slight; Lymphocytes # (A) 2.1 k/uL (1.0-4.8); Lymphocytes % (A) 16 %; MCH 26.7 pg (25.0-35.0); MCHC 31.9 g/dL (31.0-37.0); MCV 83.8 fL (80.0-100.0); Mean Platelet Volume 7.5; Monocytes # (A) 0.6 k/uL (0-1.0); Monocytes % (A) 4 %; Neutrophils # (A) 10.3 k/uL (1.3-7.7); Neutrophils % (A) 78 %; Platelet Count 200 k/uL (150-450); RBC 3.84 m/uL (4.30-5.90); RDW 14.2 % (11.5-15.5); WBC 13.3 k/uL (3.8-10.6)
--- NOTE | 2023-08-16 14:17 | XR ---
EXAMINATION TYPE: XR chest 2V DATE OF EXAM: 08/16/2023 COMPARISON: 07/13/2020 HISTORY: 87-year-old male with syncope TECHNIQUE: AP and lateral views FINDINGS: Median sternotomy wires. Limited by low lung volumes and lordotic positioning. Left anterior chest wa ll AICD generator with right atrial, right ventricular, and coronary sinus leads. No timothy consolidat ion or sizable pleural effusion seen. Heart borderline in size. IMPRESSION: Limited by lordotic positioning and hypoventilatory changes. No definite acute process.
[2023-08-16 14:31] LABS: Appearance,Urine Slightly Cloudy (Clear); Color,Urine Light Orange; Glucose,Urine (UA) Negative (Negative); Ketones,Urine Negative (Negative); Protein,Urine Negative (Negative)
[2023-08-16 14:32] LABS: Bilirubin,Urine Negative (Negative); Blood,Urine Negative (Negative); Leukocyte Esterase,Urine Large (Negative); Nitrite,Urine Negative (Negative); Urobilinogen,Urine <2.0 mg/dL (<2.0)
[2023-08-16 14:33] LABS: Specific Gravity,Urine 1.009 (1.001-1.035)
[2023-08-16 14:36] LABS: Bacteria,Urine Many /hpf; Granular Casts,Urine 15 /lpf (0); Hyaline Casts,Urine 103 /lpf (0-2); Mucus,Urine Many /hpf; RBC,Urine 4 /hpf (0-5); Squamous Epithelial Cell,Urine 7 /hpf (0-4); WBC,Urine >182 /hpf (0-5)
[2023-08-16 16:13] VITALS: BP 137/84; PULSE 76
== END 2023-08-16 15:48 | disposition home or self-care (01) ==
LOC: EC 11:16
DX: N39.0 Urinary tract infection, site not specified (principal); R55 Syncope and collapse; I11.0 Hypertensive heart disease with heart failure; I50.9 Heart failure, unspecified; E11.9 Type 2 diabetes mellitus without complications; E78.5 Hyperlipidemia, unspecified; Z87.891 Personal history of nicotine dependence; Z79.01 Long term (current) use of anticoagulants; Z79.84 Long term (current) use of oral hypoglycemic drugs; Z79.899 Other long term (current) drug therapy; Z88.0 Allergy status to penicillin; Z20.822 Contact with and (suspected) exposure to COVID-19; Z86.16 Personal history of COVID-19
CPT/HCPCS: 36415; 71046; 80053; 81001; 83735; 85025; 85610; 85730; 87077; 87086; 87186; 87636; 93005; 99285